=== PATIENT | female | born 1930 | race Hispanic/Latino ===

== ENCOUNTER 2017-03-07 11:20 | Observation (INO) | payer MEDICARE, OTHER ==
[2017-03-07 11:25] VITALS: BMI 27.3
--- NOTE | 2017-03-07 11:55 | ED PDOC ---
Arrival/HPI - General Historian: Patient, Family <Buddy Lombardi - Last Filed: 03/07/17 16:35> <Mine Muñoz - Last Filed: 03/07/17 16:53> - General Chief Complaint: Syncope Time Seen by Provider: 03/07/17 11:22 - History of Present Illness Narrative History of Present Illness (Text): 03/07/17 11:51 This is an 86 yo F with PMH of CAD with stents, HTN and HLD that presents to the ED s/p syncopal event while sitting down. Per pt she woke up feeling slightly confused and thought that is was the incorrect day of the week. Then while in [place] she started to feel funny, sat down and her vision went dark. Per family they noticed that she was looking unsteady on her feet and after she sat down leaned forward and became unresponsive. After less than a minute the pt began to become more responsive. The pt not reports being back to her baseline. She has no complaints. She denies any recent fevers, chills, chest pain, sob, nausea, vomiting, urinary complaints, VILLALOBOS or vision changes. She also reports adequate PO intake. PMD: [place] (Buddy Lombardi) Past Medical History - Provider Review Nursing Documentation Reviewed: Yes - Cardiac Hx Cardiac Disorders: Yes Hx Hypertension: Yes - Pulmonary Hx Respiratory Disorders: No - Neurological Hx Neurological Disorder: No - HEENT Hx HEENT Disorder: No - Renal Hx Renal Disorder: No - Endocrine/Metabolic Hx Endocrine Disorders: No - Hematological/Oncological Hx Blood Disorders: No - Integumentary Hx Dermatological Disorder: No - Musculoskeletal/Rheumatological Hx Musculoskeletal Disorders: No - Gastrointestinal Hx Gastrointestinal Disorders: No - Genitourinary/Gynecological Hx Genitourinary Disorders: No - Psychiatric Hx Psychophysiologic Disorder: No Hx Substance Use: No - Surgical History Hx Cardiac Catheterization: Yes Hx Coronary Stent: Yes <Buddy Lombardi - Last Filed: 03/07/17 16:35> Family/Social History - Physician Review Nursing Documentation Reviewed: Yes Family/Social History: Hypertension Smoking Status: Unknown If Ever Smoked Hx Alcohol Use: No Hx Substance Use: No <Buddy Lombardi - Last Filed: 03/07/17 16:35> Allergies/Home Meds <Buddy Lombardi - Last Filed: 03/07/17 16:35> <Mine Muñoz - Last Filed: 03/07/17 16:53> Allergies/Adverse Reactions: Allergies No Known Allergies Allergy (Verified 03/07/17 11:30) Home Medications: Home Meds Medication Instructions Recorded Confirmed Aspirin [Adult Low Dose Aspirin EC] 81 mg PO DAILY 03/07/17 03/07/17 Atorvastatin [Lipitor] 20 mg PO DAILY 03/07/17 03/07/17 Nitroglycerin [Nitroglycerin 0.4 mg TD DAILY 03/07/17 03/07/17 Transdermal System] amLODIPine [Norvasc] 10 mg PO DAILY 03/07/17 03/07/17 Review of Systems - Review of Systems Constitutional: absent: Fevers, Night Sweats Eyes: absent: Vision Changes Respiratory: absent: SOB, Cough Cardiovascular: absent: Chest Pain, Palpitations Gastrointestinal: absent: Abdominal Pain, Nausea, Vomiting Musculoskeletal: absent: Arthralgias Neurological: absent: Headache, Dizziness <Buddy Lombardi - Last Filed: 03/07/17 16:35> - Physician Review All systems were reviewed & negative as marked: Yes <WandaMine - Last Filed: 03/07/17 16:53> Physical Exam Vital Signs Reviewed: Yes Temperature: Afebrile Blood Pressure: Normal Pulse: Regular Respiratory Rate: Normal Appearance: Positive for: Well-Appearing, Non-Toxic, Comfortable Pain Distress: None Mental Status: Positive for: Alert and Oriented X 3. No: Confused Finger Stick Blood Glucose: 85 - Systems Exam Head: Present: Atraumatic, Normocephalic Pupils: Present: PERRL Extroacular Muscles: Present: EOMI Mouth: Present: Moist Mucous Membranes Respiratory/Chest: Present: Clear to Auscultation, Good Air Exchange. No: Respiratory Distress Cardiovascular: Present: Regular Rate and Rhythm, Normal S1, S2. No: Murmurs Abdomen: Present: Normal Bowel Sounds. No: Tenderness, Distention Upper Extremity: Present: NORMAL PULSES, Neurovascularly Intact Lower Extremity: Present: NORMAL PULSES, Swelling (1+ pitting edema), Neurovascularly Intact Neurological: Present: Speech Normal, Motor Func Grossly Intact Skin: Present: Warm, Dry Psychiatric: Present: Alert, Oriented x 3 <Buddy Lombardi - Last Filed: 03/07/17 16:35> Medical Decision Making <Buddy Lombardi - Last Filed: 03/07/17 16:35> <Mine Muñoz - Last Filed: 03/07/17 16:53> ED Course and Treatment: 03/07/17 11:58 This is an 86 yo F with hx of CAD/stents, HTN and HLD with reported/witnessed syncopal event Plan: Labs CXR EKG UA Head CT reassess and dispo 03/07/17 12:04 EKG - NSR at 67, left axis deviation, no significant changes from previous EKG in Jul 2016 03/07/17 12:52 CXR as read by ER physician - no obvious infiltrates or pleural effusions noted. 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 Splaying of cavernous sinus structures. No intracranial hemorrhage. 03/07/17 12:54 D-dimer positive - will order b/l LE dopplers and lung V/Q scan due to pts elevated Cr 03/07/17 14:23 B/L LE doppler negatvie for DVT (Buddy Lombardi) Patient Seen With Resident: In agreement with resident note which contains more details about the patient. Patient was seen and evaluated with resident. Came up with plan and treatment together. NM Lung Perfusion and Ventilation Scan FINDINGS: Ventilation: Heterogeneous. Matched defects are mismatched ventilation defects with central deposition Perfusion: Heterogeneous. Metastases defects Other findings: Elevated right hemidiaphragm. Cardiomegaly. IMPRESSION: Low probability for pulmonary embolism This case was reviewed with a followship trained nuclear medicine radiologist Dictated and Authenticated by: Chely Gillespie MD 03/07/2017 3:54 PM Eastern Time ([place] & [place]) 03/07/17 16:51 Patient with noted history of syncope. EKG is unchanged. Vitals are unremarkable. Labs with mild renal insufficiency. Urine is pending. D-dimer was elevated. LE dopplers were negative and v/q was low prob. Brain CT showing suprasellar abnormality - will need observation on tele and neuro and cardio consult. Discussed with Dr. Byers. (Mine Muñoz) - Lab Interpretations Lab Results: 03/07/17 12:00 03/07/17 12:00 Lab Results 03/07/17 12:20: D-Dimer, Quantitative 1.67 H 03/07/17 12:15: NT-Pro-B Natriuret Pep 300 03/07/17 12:00: TSH 3rd Generation 2.13 03/07/17 12:00: PT 12.7 H, INR 1.18 H, APTT 25.0 03/07/17 12:00: Sodium 137, Potassium 4.9, Chloride 103, Carbon Dioxide 30, Anion Gap 9 L, BUN 21, Creatinine 1.2, Est GFR ( Amer) 52, Est GFR (Non- Af Amer) 43, Random Glucose 85, Calcium 9.2, Total Bilirubin 1.1, AST 24, ALT 26 , Alkaline Phosphatase 75, Lactate Dehydrogenase 500, Total Creatine Kinase 119 , Troponin I < 0.01, Total Protein 7.8, Albumin 3.9, Globulin 3.9, Albumin/ Globulin Ratio 1.0 L, Lipase 19 L 03/07/17 12:00: WBC 9.2 D, RBC 4.25, Hgb 11.9 L, Hct 37.1, MCV 87.3, MCH 28.0, MCHC 32.1, RDW 14.9 H, Plt Count 214, MPV 10.7, Gran % 79.0 H, Lymph % (Auto) 11.5 L, Upson % (Auto) 9.2 H, Eos % (Auto) 0.2 L, Baso % (Auto) 0.1, Gran # 7.29 H, Lymph # 1.1 L, Upson # 0.9 H, Eos # 0.0, Baso # 0.01 - RAD Interpretation Radiology Orders: 03/07/17 11:41 HEAD W/O CONTRAST [CT] Stat CHEST ONE VIEW [RAD] Stat 03/07/17 12:46 LUNG PERF & VENT SCAN [NM] Stat DUPLEX LOWER EXTRM VEIN BILAT [US] Stat - Medication Orders Current Medication Orders: Amlodipine Besylate (Norvasc) 10 mg PO DAILY BO Aspirin (Aspirin Chewable) 81 mg PO DAILY BO Atorvastatin Calcium (Lipitor) 20 mg PO DAILY BO Nitroglycerin (Nitro-Dur 0.4 Mg/Hr Patch) 1 patch TD DAILY BO Discontinued Medications Sodium Chloride (Sodium Chloride 0.9%) 500 mls @ 250 mls/hr IV .Q2H STA Stop: 03/07/17 14:30 Last Admin: 03/07/17 13:15 Dose: 250 mls/hr Disposition/Present on Arrival - Present on Arrival Any Indicators Present on Arrival: No History of DVT/PE: No History of Uncontrolled Diabetes: No Urinary Catheter: No History of Decub. Ulcer: No History Surgical Site Infection Following: None - Disposition Have Diagnosis and Disposition been Completed?: Yes Disposition Time: 16:35 Patient Plan: Admission, Telemetry <Buddy Lombardi - Last Filed: 03/07/17 16:35> - Present on Arrival Any Indicators Present on Arrival: No - Disposition Have Diagnosis and Disposition been Completed?: Yes Disposition Time: 15:27 <Mine Muñoz - Last Filed: 03/07/17 16:53> - Disposition Diagnosis: Syncope Disposition: HOSPITALIZED Patient Problems: Current Active Problems Problem Status Onset Syncope Acute Condition: STABLE
[2017-03-07 12:03] LABS: ADD MANUAL DIFF? NO
[2017-03-07 12:12] LABS: BASO # 0.01 K/mm3 (0.0-2.0); BASO % 0.1 % (0.0-3.0); EOS % 0.2 % (1.5-5.0); GRAN # 7.29 (1.4-6.5); HEMATOCRIT 37.1 % (36.0-48.0); LYMPH # 1.1 (1.2-3.4); LYMPH % 11.5 % (22.0-35.0); MEAN CELL VOLUME 87.3 fL (80.0-105.0); MEAN CORPUSCULAR HGB CONC 32.1 g/dl (31.0-37.0); MEAN PLATELET VOLUME 10.7 fl (7.0-11.0); MONO # 0.9 (0.1-0.6); MONO % 9.2 % (1.0-6.0); PLATELET COUNT 214 10^3/uL (120.0-450.0); RED CELL DISTRIBUTION WIDTH 14.9 % (11.5-14.5); WHITE BLOOD COUNT 9.2 10^3/ul (4.5-11.0)
[2017-03-07 12:16] LABS: ALKALINE PHOSPHATASE 75 U/L (38-133); ALT/SGPT 26 U/L (7-56); AST/SGOT 24 U/L (15-39); BILIRUBIN,TOTAL 1.1 mg/dL (0.2-1.3); BLOOD UREA NITROGEN 21 mg/dL (7-21); CALCIUM 9.2 mg/dL (8.4-10.5); CARBON DIOXIDE 30 mmol/L (21-33); CHLORIDE 103 mmol/L (98-107); GFR AFRICAN-AMERICAN 52; GLUCOSE,RANDOM 85 mg/dL (70-110); LIPASE 19 U/L (23-300); POTASSIUM 4.9 mmol/L (3.6-5.0); SODIUM 137 mmol/L (132-148); TOTAL PROTEIN 7.8 g/dL (5.8-8.3)
[2017-03-07 12:23] LABS: INR 1.18 (0.93-1.08)
[2017-03-07] MEDS ORDERED: Sodium Chloride 0.9% 500 ML IV STA (12:31)
--- NOTE | 2017-03-07 12:44 | CT ---
PROCEDURE: CT HEAD WITHOUT CONTRAST. HISTORY: syncope COMPARISON: None available. TECHNIQUE: Axial computed tomography images were obtained through the head/brain without intravenous contrast. Radiation dose: Total exam DLP = 822 mGy-cm. This CT exam was performed using one or more of the following dose reduction techniques: Automated exposure control, adjustment of the mA and/or kV according to patient size, and/or use of iterative reconstruction technique. FINDINGS: HEMORRHAGE: No intracranial hemorrhage. BRAIN: Large 3.0 centimeter suprasellar mass possibly representing a macroadenoma or aneurysm. Splaying of cavernous sinus structures. Mild atrophy. VENTRICLES: Unremarkable. No hydrocephalus. CALVARIUM: Unremarkable. PARANASAL SINUSES: Unremarkable as visualized. No significant inflammatory changes. MASTOID AIR CELLS: Unremarkable as visualized. No inflammatory changes. OTHER FINDINGS: None. 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 Splaying of cavernous sinus structures. No intracranial hemorrhage.
[2017-03-07 12:57] LABS: TROPONIN I < 0.01 ng/mL
--- NOTE | 2017-03-07 15:13 | RAD ---
PROCEDURE: CHEST RADIOGRAPH, 1 VIEW HISTORY: nausea and vomiting COMPARISON: None available. FINDINGS: LUNGS: Clear. PLEURA: No pneumothorax or pleural fluid seen. CARDIOVASCULAR: Normal. OSSEOUS STRUCTURES: No significant abnormalities. VISUALIZED UPPER ABDOMEN: Normal. OTHER FINDINGS: Elevated right hemidiaphragm. IMPRESSION: No active disease.
--- NOTE | 2017-03-07 15:16 | US ---
HISTORY: Leg pain and swelling. Evaluate for DVT PHYSICIAN(S): Lyndon Basilio MD. TECHNIQUE: Duplex sonography and color-flow Doppler with graded compression were used to evaluate the deep venous systems of both lower extremities. FINDINGS: The visualized deep venous systems of both lower extremities are sonographically normal and compressible. Normal wave forms and augmentation are seen. There is no sonographic evidence for deep venous thrombosis in the visualized segments of both lower extremities. There is a complex 2.0 x 3.9 cm fluid collection in the right popliteal fossa and a smaller 2.7 cm fluid collection left popliteal fossa consistent with bilateral Nguyen's cysts IMPRESSION: No sonographic evidence for deep venous thrombosis in the visualized segments of both lower extremities.
[2017-03-07 16:08] LABS: URINE BILIRUBIN NEGATIVE (NEGATIVE); URINE BLOOD NEGATIVE (NEGATIVE); URINE GLUCOSE (UA) NEGATIVE (NEGATIVE); URINE KETONE NEGATIVE (NEGATIVE); URINE LEUKOCYTE ESTERASE MODERATE Leu/uL (NEGATIVE); URINE PROTEIN NEGATIVE mg/dL (<30 mg/dL); URINE UROBILINOGEN 0.2 E.U./dL (<1 E.U./dL)
[2017-03-07 16:09] LABS: URINE APPEARANCE CLEAR (CLEAR); URINE COLOR LIGHT YELLOW (YELLOW)
[2017-03-07 17:12] LABS: URINE BACTERIA SMALL (NEG); URINE EPITHELIAL CELLS 0 - 2 /hpf (0-5); URINE RBC 0 - 2 /hpf (0-2)
--- NOTE | 2017-03-07 18:49 | CARD ---
APPROVED REPORT EKG Measurement Heart [id number] OH [id number] <Conclusion> Sinus rhythm with occasional premature ventricular complexes Possible Left atrial enlargement Left axis deviation ST & T wave abnormality, consider lateral ischemia Abnormal ECG
[2017-03-08 00:22] VITALS: O2SAT 98
[2017-03-08 07:38] LABS: HEMATOCRIT 32.8 % (36.0-48.0); MEAN CELL VOLUME 85.6 fL (80.0-105.0); MEAN CORPUSCULAR HEMOGLOBIN 27.7 pg (25.0-35.0); MEAN CORPUSCULAR HGB CONC 32.3 g/dl (31.0-37.0); MEAN PLATELET VOLUME 10.3 fl (7.0-11.0); RED CELL DISTRIBUTION WIDTH 14.9 % (11.5-14.5); WHITE BLOOD COUNT 9.8 10^3/ul (4.5-11.0)
[2017-03-08 07:51] LABS: ALKALINE PHOSPHATASE 63 U/L (38-133); ALT/SGPT 28 U/L (7-56); AST/SGOT 23 U/L (15-39); BILIRUBIN,TOTAL 0.9 mg/dL (0.2-1.3); BLOOD UREA NITROGEN 17 mg/dL (7-21); CALCIUM 8.6 mg/dL (8.4-10.5); CARBON DIOXIDE 27 mmol/L (21-33); CHLORIDE 104 mmol/L (95-110); GFR AFRICAN-AMERICAN > 60; GLUCOSE,RANDOM 77 mg/dL (70-110); POTASSIUM 4.5 mmol/L (3.6-5.0); SODIUM 137 mmol/L (132-148); TOTAL PROTEIN 6.7 g/dL (5.8-8.3)
--- NOTE | 2017-03-08 09:19 | NM ---
COMPARISON: March 07, 2017. Single-view chest. TECHNIQUE: 32.0 mCi technetium 99-m DTPA aerosol. 5.7 mCI technetium 99-m MAA administered intravenously. FINDINGS: VENTILATION COMPONENT: Normal ventilation. Elevated right hemidiaphragm consistent with chest radiograph findings. Retention of radionuclide in the central tracheobronchial tree consistent with lower airway disease. PERFUSION COMPONENT: Heterogeneous distribution of radionuclide. No geographic, segmental, lobar abnormalities apparent on the present examination. Focal area of diminished perfusion in the posterior segment left upper lobe. IMPRESSION: Low probability ventilation perfusion scan for pulmonary embolism. Concordant results (preliminary interpretation) provided by [facility]. Procedure Completed: 14:48 Preliminary ([facility]) Report: Dictated and Authenticated: 15:54 Final Interpretation: 09:18. March 08, 2017.
[2017-03-08] MEDS: Nitroglycerin 0.4 mg/hr Top Patch TD SCH (10:04)
--- NOTE | 2017-03-08 11:05 | HP ---
She was sent in to the hospital because she was sort of lightheaded and had sort of a near syncopal episode. While at [employer], she felt funny, sat down, vision went dark, also a little bit unsteady. Now she is doing a little better. PAST MEDICAL HISTORY: CAD with stents, hypertension, high cholesterol. FAMILY HISTORY: There is hypertension in the family. SOCIAL HISTORY: Not a smoker, not an alcohol drinker. No drugs. ALLERGIES: No known drug allergies. MEDICATIONS: She is on aspirin, Lipitor, nitroglycerin, and Norvasc. REVIEW OF SYSTEMS: No acute fevers or night sweats. No acute vision changes. No acute hearing changes. No shortness of breath or cough. No chest pains or palpitations. No abdominal pain, nausea or vomiting. No arthralgias. No headache. Was a little bit dizzy. She was kind of out of it. She kind of felt wobbly in the brain, and she was going to fall down - almost like a fall down, but not. PHYSICAL EXAMINATION: VITAL SIGNS: She has a 99.8 temp, 67 pulse, 122/53 blood pressure, 98% O2 sat on room air - that is when she came in. Now it is 98.4 temp, 68 pulse, 133/79 blood pressure, 20 respiratory rate, and 98% O2 sat. So she is doing better. GENERAL: I see her in bed with a family member there. She is alert. She wants to go home. She said she is back to normal, and she is hungry. HEENT: Head is atraumatic, normocephalic. Extraocular muscles are intact. Pupils are equal, reactive to light. Mucous membranes are moist. NECK: Supple. No JVD. HEART: Regular rate. Normal S1 and S2. LUNGS: Decreased breath sounds, but clear to auscultation. ABDOMEN: Soft, nontender, positive bowel sounds. No guarding, no rebound, no CVA tenderness. EXTREMITIES: Have no edema. Although they said there was some swelling when she came to the Emergency Room, I do not see it now. NEUROLOGIC: Speech is normal. She feels back to normal. No lightheadedness. She did walk in the room. She is alert and oriented x 3. LABORATORY DATA: So there were a lot of tests performed on her. She had a blood test, which shows urine, which is moderate leukocytes, small bacteria, 9.8 white count, 10.6 hemoglobin, 32.hematocrit with 199 platelets. INR is 1.18. D-dimer is 1.67. Sodium 137, potassium 4.5, BUN 17, creatinine 1. GFR is greater than 60. Sugar is 77. Calcium is 8.6. Total bili is 0.9. AST is 23. ALT is 28, alk phos 63, total protein 6.7. TSH is 2.13. There are consults for cardio and neurology that did not see her yet. I also called in a consult with neurosurgeon. First the chest x-ray showed no active disease. There is a VQ scan pending because of the elevated D-dimer - waiting for that. The CAT scan of the head showed something interesting. Large 3-cm suprasellar mass, possibly representing a macroadenoma or aneurysm, splitting of the cavernous sinus structures, no intracranial hemorrhage. I called the neurosurgeon to get his opinion. We will see what the neurologist has to say, and the maintenance and engineering manager. The patient wants to go home. surgical to get her discharged today. I will discuss that with the family at length. She is here for near syncope and now with a brain mass. Richard Byers DO cc: [id number] TT: 03/08/2017 11:04:57 jn MTDD
--- NOTE | 2017-03-08 12:03 | MRI ---
PROCEDURE: MRI BRAIN WITHOUT CONTRAST HISTORY: Brain mass COMPARISON: Noncontrast head CT from 03/07/2017 TECHNIQUE: Multiplanar, multisequence MR images of the brain were obtained without intravenous contrast enhancement. FINDINGS: HEMORRHAGE: None DWI: No evidence of an acute or early subacute infarction. BRAIN PARENCHYMA: There is redemonstration of a T1 hypointense and T2/FLAIR hyperintense 2.7 x 2.1 x 2.7 cm (craniocaudad by anteroposterior by transverse) sellar mass with suprasellar extension. The mass demonstrates restricted diffusion There is probable invasion of the left cavernous sinus. There are mild chronic microangiopathic changes. There is no extra-axial fluid collection VENTRICLES: There is mild age-related global parenchymal volume loss and proportionate enlargement of the ventricles and cortical sulci. CRANIUM: There is normal bone marrow signal pattern. ORBITS: Grossly unremarkable. PARANASAL SINUSES/MASTOIDS: Predominantly clear. VASCULAR SYSTEM: There are normal signal voids in the larger intracranial arteries. OTHER FINDINGS: None. IMPRESSION: 1. Large sellar mass with suprasellar extension and probable invasion of the left cavernous sinus. 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 No evidence of hemorrhage. A dedicated MRI of the brain without and with intravenous contrast with pituitary protocol would be helpful to evaluate invasion of the cavernous sinuses. 2. Mild chronic microangiopathic changes and mild age-related global parenchymal volume loss.
--- NOTE | 2017-03-08 15:29 | CON ---
DATE: 03/08/2017 This is an 86-year-old black female with a past medical history of hypertension, coronary artery dise ase, status post stents and came here. The patient was in the latter day and sitting [facility]. The patient passed out, had a syncopal episode and when she woke up, was slightly confused and di d not know the accurate day of the week and brought her to the hospital. [facility] in the suprasellar and called to evaluate the patient. PAST MEDICAL HISTORY: As above. ALLERGIES: No known drug allergy. HOME MEDICATIONS: Lipitor, Norvasc and aspirin. REVIEW OF SYSTEMS: A 10-point was negative except headache. Called to evaluate the patient. PHYSICAL EXAMINATION: HEENT: Normocephalic, atraumatic. NECK: Supple. NEUROLOGIC: Awake, oriented to self. Cranial nerves II-XII were tested. Pupils reactive. Spontane ous movement of the extremities noted. Deep tendon reflexes 1+. Both plantars are downgoing. Senso ry appears intact. Cerebellar, gait deferred. IMPRESSION: An 86-year-old black female with hypertension, coronary artery disease, had a witnessed syncopal episode. No tongue bite, no urinary incontinence. 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 Workup is in progress. MRI showed the same thing. Called neurosurgeon to further evaluate the patient. Ashwin France MD cc: [id number] TT: 03/08/2017 15:28:53 Confirmation # [id number] Dictation # [id number]
--- NOTE | 2017-03-08 16:02 | CON ---
DATE: 03/08/2017 HISTORY OF PRESENT ILLNESS: The patient is an 86-year-old woman who presents with a syncopal episode . MRI reveals a brain mass which is now being evaluated by neurology and neurosurgery. PAST MEDICAL HISTORY: Notable for hypertension and hypercholesterolemia. She had PTCA and stent of a coronary artery several years ago. She denies chest pain, denies shortness of breath. SOCIAL HISTORY: Does not smoke. REVIEW OF SYSTEMS: A 14-point review of systems is free of cardiac symptomatology. PHYSICAL EXAMINATION: VITAL SIGNS: Blood pressure is 130/60, heart rate is in the 60s. NECK: Negative JVD. LUNGS: Without rales. HEART: Reveals S1, S2. EXTREMITIES: Without edema. LABORATORIES: Reveals normal sinus rhythm with diffuse ST-T changes. Hemoglobin is 10.6. Chemistri es: Troponin is negative x 1. BUN and creatinine are unremarkable. IMPRESSION: 1. Syncope. 2. Brain mass. 3. Stable angina. 4. Hypertension. 5. Hypercholesterolemia. PLAN: Given these findings, we will obtain an echocardiogram to evaluate LV function for the possibl e potential invasive procedure in the near future. Lyndon Robledo MD cc: [id number] TT: 03/08/2017 16:02:28 Confirmation # [id number] Dictation # [id number]
[2017-03-09 06:24] VITALS: PULSE 54
[2017-03-09 06:27] VITALS: BP 114/66; RESP 18; TEMP 98.3
[2017-03-09] MEDS: Nitroglycerin 0.4 mg/hr Top Patch TD SCH ×2 (09:40→09:43)
--- NOTE | 2017-03-09 10:13 | DS ---
I see her resting comfortably in bed. She is alert. She is eating. She is walking. She is with he r daughter. They want to go home. A couple of issues left. Waiting for the plan from neurosurgeon. She does have a brain mass. I am not sure what the plan is going to be, if there is surgery or jus t watch her further in the future. She is comfortable. No headache, no blurred vision, no more dizz iness. She is on aspirin, Lipitor, nitroglycerin, and Norvasc PHYSICAL EXAMINATION: VITAL SIGNS: 98.3 temp, 54 pulse, 114/66 blood pressure, 18 respiratory rate, 98% O2 sat on room air . HEENT: Head is atraumatic, normocephalic. Throat is moist. NECK: Supple. HEART: Regular rate. LUNGS: Clear to auscultation. ABDOMEN: Soft. EXTREMITIES: No edema. She is ambulating well. LABORATORY DATA: She has a 9.8 white count, 10.6 hemoglobin, 199 platelets. She has a 137 sodium, p otassium 4.5, BUN 17, creatinine 1, GFR is 53, calcium is 8.6. Total bili is 0.9, AST is 23, ALT is 20, alk phos 63, total protein 6.7. Waiting for the note to populate from the neurosurgeon for his p joni. There are some orders pending that are labs that are not back yet - a cortisol and prolactin ar e pending. TSH is normal at 2.13. I am hoping we can discharge her later today. She will go home on the same medications that she is o n here, nothing new, which is her aspirin, Lipitor, nitroglycerin, Norvasc. She could probably follo w up on the outpatient if there is going to be a procedure done. No messages from the nurses from e surgeon. Will hurry up and wait. If everything is fine, will discharge her this afternoon. Other reynoso, will make a plan for surgery. She is here with a brain mass, a syncopal episode, hypertension, high cholesterol. Richard Byers DO cc: [id number] TT: 03/09/2017 10:12:46 mn
== END 2017-03-09 11:34 | disposition home or self-care (01) ==
LOC: ED 11:20 → ERH 15:27 → 2RSO 16:22
PROVIDERS: ADMIT Family Medicine; ATTEND Family Medicine
DX: R55 Syncope and collapse (principal); G93.9 Disorder of brain, unspecified; I25.118 Atherosclerotic heart disease of native coronary artery with other forms of angina pectoris; I10 Essential (primary) hypertension; E78.5 Hyperlipidemia, unspecified; R26.81 Unsteadiness on feet; E78.00 Pure hypercholesterolemia, unspecified; Z95.5 Presence of coronary angioplasty implant and graft; Z79.82 Long term (current) use of aspirin; Z82.49 Family history of ischemic heart disease and other diseases of the circulatory system
CPT/HCPCS: 36415; 70450; 70551; 71010; 78582; 80053; 81001; 82550; 83615; 83690; 83880; 84443; 84484; 85025; 85027; 85378; 85610; 85730; 87086; 93005; 93970; 99285; A9540; G0378; J7040

== ENCOUNTER 2018-05-27 15:19 | Inpatient (IN) | payer MEDICARE, OTHER ==
[2018-05-27 16:38] LABS: VENOUS BLOOD GAS BASE EXCESS 4.5 mmol/L (0.0-2.0); VENOUS BLOOD GAS PO2 30 mm/Hg (30-55); VENOUS BLOOD PH 7.37 (7.32-7.43)
[2018-05-27 16:38] LABS: BASO # 0.02 K/mm3 (0.0-2.0); BASO % 0.3 % (0.0-3.0); EOS # 0.1 (0.0-0.7); EOS % 1.6 % (1.5-5.0); GRAN # 4.85 (1.4-6.5); GRAN % 63.6 % (50.0-68.0); HEMOGLOBIN 11.2 g/dL (12.0-16.0); LYMPH # 1.6 (1.2-3.4); LYMPH % 21.6 % (22.0-35.0); MEAN CELL VOLUME 86.3 fl (80.0-105.0); MEAN CORPUSCULAR HEMOGLOBIN 27.3 pg (25.0-35.0); MEAN CORPUSCULAR HGB CONC 31.6 g/dl (31.0-37.0); MEAN PLATELET VOLUME 9.6 fl (7.0-11.0); MONO % 12.9 % (1.0-6.0); RBC 4.1 10^6/uL (3.5-6.1); WHITE BLOOD COUNT 7.6 10^3/ul (4.5-11.0)
[2018-05-27 16:46] LABS: ALB/GLOB RATIO 0.9 (1.1-1.8); ALBUMIN 3.9 g/dL (3.0-4.8); CALCIUM 8.9 mg/dL (8.4-10.5)
[2018-05-27 16:50] LABS: INR 1.23; PARTIAL THROMBOPLASTIN TIME 29.9 Seconds (25.1-36.5); PROTHROMBIN TIME 14.1 SECONDS (9.4-12.5)
[2018-05-27] MEDS ORDERED: Vancomycin 1gm in NS 250ml 1 GM/250 ML BAG IVPB STA (17:17)
--- NOTE | 2018-05-27 17:22 | ED PDOC ---
Arrival/HPI - General Chief Complaint: Lower Extremity Problem/Injury Time Seen by Provider: 05/27/18 15:57 Historian: Patient - History of Present Illness Narrative History of Present Illness (Text): 05/27/18 17:23 Patient is an 88 yo female who presents to the Emergency Department with pain, redness and swelling to the left leg for several weeks. Patient states that approximately three weeks ago she "banged my leg on a dresser". Patient reportedly "put a strong solution" on it to clean. She has had persistent redness and ulcer. Patient has been seeing Dr. Radhika Byers who placed her on antibiotics and Bactroban. Reportedly there was slight improvement initially although patient now has return of redness and swelling as per PMD who has been following wound. No knee pain or hip pain. Denies fevers or chills. Denies tremors or shakes. Past Medical History - Reproductive Menopause: Yes - Cardiac Hx Cardiac Disorders: Yes Hx Hypertension: Yes - Pulmonary Hx Respiratory Disorders: No - Neurological Hx Neurological Disorder: No - HEENT Hx HEENT Disorder: No - Renal Hx Renal Disorder: No - Endocrine/Metabolic Hx Endocrine Disorders: No - Hematological/Oncological Hx Blood Disorders: No - Integumentary Hx Dermatological Disorder: No - Musculoskeletal/Rheumatological Hx Falls: No - Gastrointestinal Hx Gastrointestinal Disorders: No - Genitourinary/Gynecological Hx Genitourinary Disorders: No - Psychiatric Hx Psychophysiologic Disorder: No Hx Substance Use: No - Surgical History Hx Cardiac Catheterization: Yes Hx Coronary Stent: Yes Hx Hysterectomy: Yes Family/Social History Family/Social History: Unknown Family HX Smoking Status: Never Smoked Hx Alcohol Use: No Hx Substance Use: No Allergies/Home Meds Allergies/Adverse Reactions: Allergies No Known Allergies Allergy (Verified 05/27/18 15:54) Home Medications: Home Meds Medication Instructions Recorded Confirmed Aspirin [Adult Low Dose Aspirin EC] 81 mg PO DAILY 03/07/17 05/27/18 Atorvastatin [Lipitor] 20 mg PO DAILY 03/07/17 05/27/18 Nitroglycerin [Nitroglycerin 0.4 mg TD DAILY 03/07/17 05/27/18 Transdermal System] Furosemide [Lasix] 20 mg PO DAILY 05/27/18 05/27/18 Review of Systems - Review of Systems Constitutional: absent: Fatigue, Fevers Respiratory: absent: SOB, Cough Cardiovascular: absent: Chest Pain Gastrointestinal: absent: Abdominal Pain Genitourinary Female: absent: Hematuria Musculoskeletal: absent: Neck Pain Skin: Skin Lesions, Cellulitis. absent: Rash Neurological: absent: Headache, Dizziness, Focal Weakness Endocrine: absent: Polyuria Hemo/Lymphatic: absent: Easy Bleeding Physical Exam Vital Signs Reviewed: Yes Vital Signs Temp Pulse Resp BP Pulse Ox 05/27/18 18:14 61 18 119/62 100 05/27/18 15:56 98.2 F 71 18 104/70 100 Temperature: Afebrile Appearance: Positive for: Non-Toxic Pain Distress: Mild Mental Status: Positive for: Alert and Oriented X 3 - Systems Exam Head: Present: Atraumatic Pupils: Present: PERRL Mouth: Present: Moist Mucous Membranes Pharnyx: No: ERYTHEMA Nose (Internal): Present: Normal Inspection Neck: Present: Normal Range of Motion. No: Meningeal Signs Respiratory/Chest: Present: Clear to Auscultation. No: Respiratory Distress Cardiovascular: Present: Regular Rate and Rhythm, Murmurs Abdomen: No: Tenderness Back: No: CVA Tenderness Upper Extremity: No: Cyanosis, Edema Lower Extremity: Present: Edema, NORMAL PULSES, Tenderness, Swelling, Erythema. No: CALF TENDERNESS Neurological: Present: Motor Func Grossly Intact, Normal Sensory Function Skin: Present: Warm, Erythematous Psychiatric: Present: Alert Medical Decision Making ED Course and Treatment: 05/27/18 17:29 Patient with erythema noted to left lower extremity at tib fib region with ulceration, currently no pus or bleeding or fluctuance. No streaking. NV intact. No knee or ankle or hip pain. Afebrile. Denies fevers or chills. Patient has been on outpatient antibiotics with recent worsening of redness as per PMD. Ultrasound negative for DVT. No foreign body palpated. Labs reviewed. IV antibiotics ordered. Case discussed with PMD Dr. Radhika Byers will admit and consult ID and podiatry for failure of outpatient treatment of cellulitis. Distal pulses strong. Xrays unremarkable for any fracture or radioopaque foreign body. 05/27/18 18:43 - Lab Interpretations Lab Results: 05/27/18 16:32 05/27/18 16:32 Lab Results 05/27/18 16:32: Sodium 141, Chloride 103, Potassium 4.7, Carbon Dioxide 28, Anion Gap 14, BUN 21, Creatinine 1.2, Est GFR ( Amer) 52, Est GFR (Non- Af Amer) 43, Random Glucose 94, Calcium 8.9, Total Bilirubin 0.4, AST 25, ALT 16 , Alkaline Phosphatase 96, Total Protein 8.0, Albumin 3.9, Globulin 4.1, Albumin /Globulin Ratio 0.9 L 05/27/18 16:32: PT 14.1 H, INR 1.23, APTT 29.9 05/27/18 16:32: WBC 7.6 D, RBC 4.10, Hgb 11.2 L, Hct 35.4 L, MCV 86.3, MCH 27.3 , MCHC 31.6, RDW 15.0 H, Plt Count 284, MPV 9.6, Gran % 63.6, Lymph % (Auto) 21.6 L, Summers % (Auto) 12.9 H, Eos % (Auto) 1.6, Baso % (Auto) 0.3, Gran # 4.85, Lymph # (Auto) 1.6, Summers # (Auto) 1.0 H, Eos # (Auto) 0.1, Baso # (Auto) 0.02 05/27/18 16:30: pO2 30, VBG pH 7.37, VBG pCO2 54.0, VBG HCO3 31.2 H, VBG Total CO2 32.9 H, VBG O2 Sat (Calc) 50.9, VBG Base Excess 4.5 H, VBG Potassium 4.8, Sodium 141.0, Chloride 107.0, Glucose 92, Lactate 0.9, FiO2 21.0, Venous Blood Potassium 4.8 - RAD Interpretation Radiology Orders: 05/27/18 16:07 DUPLEX LOWER EXTRM VEIN LEFT [US] Stat 05/27/18 16:20 TIBIA FIBULA LEFT [RAD] Stat Professor Of Art History: Radiologist - EKG Interpretation Interpreted by ED Physician: Yes Type: 12 lead EKG - Medication Orders Current Medication Orders: Vancomycin HCl (Vancomycin 1gm) 1 gm in 250 mls @ 167 mls/hr IVPB STAT STA PRN Reason: Protocol Stop: 05/27/18 18:46 Last Admin: 05/27/18 17:59 Dose: 167 mls/hr eMAR Start Stop Document 05/27/18 17:59 GMD (Rec: 05/27/18 17:59 GMD [id number]) Intravenous Solution Start Date 05/27/18 Start Time 17:59 End Date 05/27/18 End time 19:29 Total Infusion Time 90 Disposition/Present on Arrival - Present on Arrival Any Indicators Present on Arrival: No History of DVT/PE: No History of Uncontrolled Diabetes: No Urinary Catheter: No History of Decub. Ulcer: No History Surgical Site Infection Following: None - Disposition Have Diagnosis and Disposition been Completed?: Yes Diagnosis: Cellulitis Disposition: HOSPITALIZED Disposition Time: 17:15 Patient Plan: Admission Patient Problems: Current Active Problems Problem Status Onset Cellulitis Acute Condition: FAIR
--- NOTE | 2018-05-27 17:31 | CARD ---
APPROVED REPORT Date of service: 05/27/2018 EKG Measurement Heart [id number] <Conclusion> Normal sinus rhythm with sinus arrhythmia Possible Left atrial enlargement Anterior infarct, age undetermined T wave abnormality, consider inferior ischemia Abnormal ECG
--- NOTE | 2018-05-27 20:40 | US ---
PROCEDURE: Left lower extremity venous US HISTORY: Leg pain and swelling. Evaluate for DVT. PHYSICIAN(S): Lyndon Basilio MD. TECHNIQUE: Duplex sonography and color-flow Doppler with graded compression were used to evaluate the deep venous system of the left lower extremity. FINDINGS: The visualized deep venous system of the left lower extremity is sonographically normal and compressible. Normal wave forms and augmentation are seen. There is no sonographic evidence for deep venous thrombosis in the visualized segments of the left lower extremity. There is a complex 2.8 cm fluid collection in the left popliteal fossa, consistent with a Nguyen's cyst IMPRESSION: 1. No sonographic evidence for deep venous thrombosis in the visualized segments of the left lower extremity.
[2018-05-27 21:54] VITALS: BMI 25.7
[2018-05-27] MEDS ORDERED: Pneumococcal 23-Valent Vaccine IM ONE (21:54)
[2018-05-27] MEDS ORDERED: Piperacillin/Tazobact 3.375 gm Inj IVPB SCH (22:00)
[2018-05-27] MEDS: Piperacillin/Tazobact 2.25gm 2.25 GM/100 ML BAG IVPB SCH (22:21)
[2018-05-28 03:37] LABS: PH,URINE 6.5 (4.7-8.0); URINE BILIRUBIN NEGATIVE (NEGATIVE); URINE BLOOD NEGATIVE (NEGATIVE); URINE GLUCOSE (UA) NEGATIVE (NEGATIVE); URINE LEUKOCYTE ESTERASE LARGE Leu/uL (NEGATIVE); URINE PROTEIN NEGATIVE mg/dL (<30 mg/dL)
[2018-05-28 03:48] LABS: URINE APPEARANCE CLEAR (CLEAR); URINE COLOR LIGHT YELLOW (YELLOW)
[2018-05-28 03:49] LABS: URINE BACTERIA SMALL (NEG); URINE WBC 25 - 30 /hpf (0-6)
[2018-05-28] MEDS: Piperacillin/Tazobact 2.25gm 2.25 GM/100 ML BAG IVPB SCH (05:48)
[2018-05-28 06:52] LABS: ALB/GLOB RATIO 0.9 (1.1-1.8); CALCIUM 8.2 mg/dL (8.4-10.5)
[2018-05-28 06:57] LABS: EOS % 0.1 % (1.5-5.0); GRAN # 11.75 (1.4-6.5); GRAN % 94.2 % (50.0-68.0); HEMOGLOBIN 10.3 g/dL (12.0-16.0); LYMPH # 0.1 (1.2-3.4); MEAN CORPUSCULAR HEMOGLOBIN 27.1 pg (25.0-35.0); MEAN CORPUSCULAR HGB CONC 31.9 g/dl (31.0-37.0); MONO # 0.6 (0.1-0.6); MONO % 4.7 % (1.0-6.0); PLATELET COUNT 240 10^3/uL (120.0-450.0); RED CELL DISTRIBUTION WIDTH 15.1 % (11.5-14.5); WHITE BLOOD COUNT 12.5 10^3/ul (4.5-11.0)
[2018-05-28 09:31] LABS: LYMPHOCYTE 4 % (22.0-35.0); MONOCYTE 1 % (1.0-6.0); NEUTROPHIL 95 % (50.0-70.0)
[2018-05-28] MEDS: Nitroglycerin 0.4 mg/hr Top Patch TD SCH (09:34)
[2018-05-28] MEDS: Linezolid 600 mg in D5W 300 ml 600 MG/300 ML BAG IVPB SCH ×2 (09:38→21:09)
--- NOTE | 2018-05-28 10:45 | RAD ---
Date of service: 05/27/2018 PROCEDURE: Radiographs of the left tibia and fibula. HISTORY: r/o osteo COMPARISON: None available. TECHNIQUE: Frontal and lateral views obtained. FINDINGS: BONES: There is diffuse bone demineralization. There is an apparent radiolucent lesion in the medial subarticular distal tibia. JOINT SPACES: The joint spaces are preserved. OTHER FINDINGS: There is mild subcutaneous edema and atherosclerotic vascular calcifications. There is also periarticular soft tissue swelling. IMPRESSION: Apparent radiolucent lesion in the medial subarticular distal tibia could represent osteomyelitis in the appropriate clinical setting. If clinically indicated, correlation with MRI may be performed for definitive evaluation.
[2018-05-28] MEDS: Meropenem IV 1 gm in NS 50 ML IVPB SCH ×3 (11:38→21:08)
--- NOTE | 2018-05-28 13:07 | CON ---
Copied To: Norm Allen DPM Attending MD: Norm Allen DPM DATE: 05/28/2018 HISTORY OF PRESENT ILLNESS: An 88-year-old female seen at bedside with her daughter present for consultation, evaluation and management of a wound to her left leg for several weeks with recent accompanying cellulitis. The patient states that she injured her leg by banging it on a dresser approximately 4 weeks ago and was self treating it, but was not getting better, so she went to her primary care doctor, who placed her on oral and topical antibiotics, but there was a little improvement over the course of the last weeks, so she presented to the emergency room for treatment. The patient states she is feeling much better since admission and her leg pain has decreased significantly. PAST MEDICAL HISTORY: The patient's medical history is significant for CAD, hypertension, peripheral vascular disease and dyslipidemia. ALLERGIES: THE PATIENT HAS NO KNOWN DRUG ALLERGIES. MEDICATIONS: All medications are noted in MAR. SOCIAL HISTORY: The patient never smoked cigarettes or used tobacco products. Does not drink alcohol and denies any illicit drug use. PAST SURGICAL HISTORY: Includes hysterectomy, coronary catheterizations with stenting. FAMILY HISTORY: Unremarkable. VITAL SIGNS: Revealed temperature of 102.4, pulse rate of 75, blood pressure of 140/74, respiratory rate of 20. LABORATORY DATA: Laboratory findings reveal white count of 12.5, up from 7.6 yesterday. Hemoglobin of 10.3, hematocrit of 32.3, platelet count of 240. OBJECTIVE: Nonpalpable pedal pulses noted bilaterally. Capillary filling time is slightly delayed x10. The patient is able to detect 5.07 g monofilament wire testing bilaterally. There is noted to be +1 nonpitting lower extremity edema. There are no interdigital macerations. There is a superficial wound on her anterior left lower leg and base of the ulcer, presents with an eschar. There is no drainage. There is no malodor. There is no pain upon palpation. However, the localized area surrounding the periphery of the wound is slightly edematous and erythematous. There are no signs of underlying abscess formation. There is no pain upon palpation at the gastroc soleus complex. Venous duplex taken of the left lower extremity reveals no radiographic evidence of deep vein thrombosis. X-rays taken of the left leg reveal no radiographic changes consistent with osseous cortical destruction and no evidence of osteomyelitis. ASSESSMENT: Traumatic left lower leg ulceration with localized cellulitis. PLAN: The patient was examined. Wound was cleansed with normal sterile saline. We will apply Bactroban, Xeroform and a dry sterile dressing. Given the patient has nonpalpable pedal pulses, we will obtain arterial Dopplers to ascertain lower extremity perfusion. I do not believe that she has an underlying abscess in her leg and I do not feel that the etiology of her recent white blood cell count increase is related to her lower leg. Spoke with Dr. Connors regarding case. The patient will be seen and followed daily. We will await arterial Doppler results to determine if vascular consult is needed, vascular evaluation is warranted. Norm Allen DPM JOANNE
--- NOTE | 2018-05-28 19:40 | HP ---
Copied To: Richard Byers DO Attending MD: Richard Byers DO DATE OF EXAM: 05/28/2018 HISTORY OF PRESENT ILLNESS: I have known Estella for many, many years. She has been in my office for the past 2-3 weeks. I have been treating her left leg cellulitis with an ulcer with antibiotics. I am on a second antibiotic. I had her on Lasix p.o. and I thought it was getting better, then she came back 2 weeks later and it got worse to the point where she needs to be in the hospital at this time. I am quite concerned about that left leg. She has got an ulcer which is looking worse and more redness. I saw a demarcation line and I brought her to the emergency room with failed outpatient treatment. She was started with banging her leg on a dresser and she cleaned it with some strong cleaning solution she had at home and she did not want to come to the hospital. I asked her numerous times and finally with the family there, we forced her to come to the hospital. She has hypertension, coronary stents. She had a hysterectomy. FAMILY HISTORY: Unknown family history but there is hypertension. SOCIAL HISTORY: Never smoked. No alcohol. No drugs. ALLERGIES: NO KNOWN DRUG ALLERGIES. MEDICATIONS: She is on aspirin; nitroglycerin; transdermal system Lasix, I bumped her up to 40 mg. She is on amoxicillin. She is on Keflex. She is on Duricef REVIEW OF SYSTEMS: Left leg was red and swollen with an ulcer. No fatigue. There were fevers at home, 100 degrees in my office. No shortness of breath. No cough. No chest pain or palpitations. No abdominal pain, nausea, vomiting, constipation or diarrhea. No problems urinating. No neck pain. She has a skin lesion in the left leg for which she banged it against the furniture; cellulitis, rash and ulcer. No headache. No dizziness, no focal weakness. No polyuria. No easy bleeding. The left leg got worse over the past 2-3 weeks. PHYSICAL EXAMINATION: VITAL SIGNS: She has a 98.2 temp, it was 99 plus in my office; 71 pulse; 18 respiratory rate; 104/70 blood pressure; 100% O2 sat on room air. GENERAL: She is upset, nontoxic, alert and oriented x3, mild distress. HEENT: Head is atraumatic, normocephalic. Extraocular muscles are intact. Pupils equal and reactive to light. Mucosa is moist. Throat is clear. HEART: Regular rate. LUNGS: Decreased breath sounds, but clear to auscultation bilaterally. ABDOMEN: Soft, nontender. Positive bowel sounds. No guarding, no rebound, and no CVA tenderness. EXTREMITIES: The left lower extremity has an ulcer 3 x 3 cm with black eschar, +1/4 pitting edema. There is redness up to about senior care up the leg to the knee, it is getting worse with swelling and redness and it also looks worse. LYMPHATICS: Thyroid midline. No palpable appreciable lymphadenopathy. LABORATORY DATA: She has 7.6 white count, 11.2 hemoglobin, 35.4 hematocrit with 284 platelets on admission. The x-ray showed unremarkable but look for osteomyelitis. I will get an MRI. She has 141 sodium, , potassium 4.7, CO2 is 28, anion gap is 14, BUN 29, creatinine 1.2, GFR is 52, sugar is 94, calcium is 8.9, total bili is 0.4, AST is 25, ALT is 16, alk phos 96, total protein 8, albumin is 3.9. INR is 1.23. IMPRESSION: When she came in, she had a cellulitis, persistent, failed outpatient therapy. She has an ulcer to the left leg. She has a little bit of a UTI with mild bacteria, a little bit of CHF with edema and she is on IV antibiotics by Infectious Disease, and she is currently on Bactroban cream, Ecotrin, Lasix, Lipitor, Merrem IV, Nitro-Dur, Tylenol and Zyvox. She will have consults with Infectious Disease and Podiatry. We will get an MRI of the lower extremity to make sure it is not an osteomyelitis. Richard Byers DO MTDAdelaide
--- NOTE | 2018-05-28 19:44 | CON ---
Copied To: Magdaleno Connors MD Attending MD: Magdaleno Connors MD DATE: 05/28/2018 LOCATION: Patient is seen in room 562, bed 2. CHIEF COMPLAINT: Weakness from several days. HISTORY OF PRESENT ILLNESS: This is an 88-year-old female with past medical history significant for coronary artery disease and hypertension and whose daughters, granddaughter and great granddaughter are present and said the patient states that she had a trauma in left leg and trauma revealed the patient had continue, his leg did not heal, now admitted with fever of 102, Infectious disease consultation requested. Patient states that she does not have any pain in the leg, although obvious site of trauma to as leg as far as the skin is concerned on the leg. There has been no chest pain, shortness of breath. No abdominal pain, diarrhea, or constipation. No bright red blood per rectum. No melena. No dysuria or frequency. REVIEW OF SYSTEMS: Twelve-point review of systems performed. PAST MEDICAL HISTORY: Significant for hypertension, high cholesterol, cataract, coronary artery disease. PAST SURGICAL HISTORY: Significant for cardiac catheterization, stent placement, and hysterectomy. ALLERGIES: PATIENT HAS NO KNOWN ALLERGIES TO ANY ANTIBIOTICS. SOCIAL HISTORY: She lives at home, but her daughters attend to her. MEDICATIONS AT HOME: Include nitroglycerin patch, furosemide, Lipitor, and aspirin. PHYSICAL EXAMINATION GENERAL: She is in bed. No acute distress, slow to respond. VITAL SIGNS: Temperature of 102.4, blood pressure is 130/70, respiratory rate of 20 with heart rate of 91, oxygen saturation is at 96% with the patient's BMI at 25. HEENT: Unremarkable. NECK: Supple. LUNGS: Decreased breath sounds. HEART: Normal S1 and S2. ABDOMEN: Soft, nontender. No rebound or guarding. LABORATORY EXAMINATION: Reveals the patient's white count of 12,500, hemoglobin of 10, platelets of 240, 95% neutrophils. Coagulation is noted. The blood gasses are reviewed. Patient's chemistries are noted. LFTs are mildly elevated. Urinalysis reveals 25 to 30 wbc's. Large leukocyte esterase. Examination of patient's leg appears to have chronic changes and dry heal eschar. Nontender to touch. There is no discharge. I do not believe there is fever to be from this leg. X-ray of the legs reviewed and shows apparent radiolucent lesion. The medial subarticular cyst could represent osteomyelitis in appropriate setting. Ultrasound of the extremities reviewed. Nguyen cyst is evident. There is no evidence of a DVT. EKG is reviewed. QTc of 465. Review of orders reveals the urine cultures are pending. Blood cultures are pending. MEDICATIONS: Patient was started on linezolid and add meropenem. ASSESSMENT AND PLAN: An 88-year-old female with coronary artery disease, hypertension, high cholesterol, cataracts, admitted with a fever, positive urinalysis. Sepsis with urine as the source. We will repeat the patient with meropenem, currently on Zyvox, pending blood cultures, urine cultures, and we will make further recommendations upon availability of initial culture results and we will follow closely with you. Magdaleno Connors MD
[2018-05-29] MEDS: Meropenem IV 1 gm in NS 50 ML IVPB SCH ×3 (06:18→21:16)
[2018-05-29 06:43] LABS: BASO # 0.01 K/mm3 (0.0-2.0); BASO % 0.2 % (0.0-3.0); EOS # 0.1 (0.0-0.7); EOS % 1.4 % (1.5-5.0); GRAN # 4.84 (1.4-6.5); GRAN % 72.8 % (50.0-68.0); LYMPH # 0.8 (1.2-3.4); LYMPH % 11.6 % (22.0-35.0); MEAN CELL VOLUME 84.4 fl (80.0-105.0); MEAN CORPUSCULAR HEMOGLOBIN 26.9 pg (25.0-35.0); MEAN CORPUSCULAR HGB CONC 31.9 g/dl (31.0-37.0); MEAN PLATELET VOLUME 10.1 fl (7.0-11.0); MONO # 0.9 (0.1-0.6); RBC 4.09 10^6/uL (3.5-6.1); RED CELL DISTRIBUTION WIDTH 15.1 % (11.5-14.5); WHITE BLOOD COUNT 6.6 10^3/ul (4.5-11.0)
[2018-05-29 06:51] LABS: ALB/GLOB RATIO 0.9 (1.1-1.8); ALBUMIN 3.1 g/dL (3.0-4.8)
[2018-05-29] MEDS: Nitroglycerin 0.4 mg/hr Top Patch TD SCH (09:15)
[2018-05-29] MEDS: Mupirocin 2% Ointment 15 GM TUBE TOP SCH (09:16)
[2018-05-29] MEDS: Linezolid 600 mg in D5W 300 ml 600 MG/300 ML BAG IVPB SCH (09:16)
[2018-05-29] MEDS: Enoxaparin 30 mg Syringe SC SCH (11:26)
--- NOTE | 2018-05-29 13:39 | CP.PCM.PN ---
<Nolan Alonzo - Last Filed: 05/29/18 13:31> Subjective - Date & Time of Evaluation Date of Evaluation: 05/29/18 Time of Evaluation: 13:31 - Subjective Subjective: Podiatry progress notes for attending Dr. Allen 88 y/o F patient seen and evaluated at the bedside for left leg ulcer and possible cellulitis. Patient was sitting in bed comfortably and not in acute distress. Patient is AAO X 3. Patient states that she didn't have any overnight acute events. She denies any pain in her LE. Patient denies any overnght F/N/V/ C or SOB. Patient denies any pedal complain at that time. Objective - Vital Signs/Intake and Output Vital Signs (last 24 hours): Temp Pulse Resp BP Pulse Ox 98.3 F 61 20 130/76 98 05/29/18 07:00 05/29/18 07:00 05/29/18 07:00 05/29/18 09:15 05/29/18 07:00 Intake and Output: 05/29/18 05/29/18 06:59 18:59 Intake Total 400 Balance 400 - Medications Medications: Current Medications Acetaminophen (Tylenol 325mg Tab) 650 mg PO Q4H PRN PRN Reason: Fever >100.4 F Last Admin: 05/28/18 05:47 Dose: 650 mg Aspirin (Ecotrin) 81 mg PO DAILY [facility] Last Admin: 05/29/18 09:16 Dose: 81 mg Atorvastatin Calcium (Lipitor) 20 mg PO DAILY [facility] Last Admin: 05/29/18 09:16 Dose: 20 mg Enoxaparin Sodium (Lovenox) 30 mg SC DAILY BO PRN Reason: Protocol Last Admin: 05/29/18 11:26 Dose: 30 mg Furosemide (Lasix) 20 mg IVP DAILY [facility] Meropenem (Merrem Iv 1 Gm Premix) 50 mls @ 100 mls/hr IVPB Q8 BO PRN Reason: Protocol Stop: 06/06/18 11:28 Last Admin: 05/29/18 13:12 Dose: 100 mls/hr Mupirocin (Bactroban Ointment) 0 gm TOP DAILY [facility] Last Admin: 05/29/18 09:16 Dose: 1 appl Nitroglycerin (Nitro-Dur 0.4 Mg/Hr Patch) 1 patch TD DAILY [facility] Last Admin: 05/29/18 09:15 Dose: 1 patch - Labs Labs: 05/29/18 06:00 05/29/18 06:00 PT 14.1 SECONDS (9.4-12.5) H 05/27/18 16:32 INR 1.23 05/27/18 16:32 APTT 29.9 Seconds (25.1-36.5) 05/27/18 16:32 - Constitutional Appears: Well, Non-toxic, No Acute Distress - Head Exam Head Exam: ATRAUMATIC, NORMOCEPHALIC - Extremities Exam Additional comments: LE focused exam: Vasc: DP/PT pulses are faintly palpable b/l. Cap refill < 3 sec in all digits. Temp gradient warm to cool from proximal to distal. +1 pitting edema noted on the left LE Neuro: Gross and protective sensations are intact. Derm: a superficial ulcer 4 X 2 X 0.1 cm which is covered partially by dry scab noted in the anterior aspect of the left leg at the mid leg level. No malodor, minimal serous drainage. No undermining, probing to bone or tracking. Mild erythema noted in theperiulcerative area. B/L skin hyperpigmentation noted at legs. MSK: No pain on palpating the periulcerative area. Muscle power 5/5 in all groups. - Neurological Exam Neurological Exam: Alert, Awake, Oriented x3 - Psychiatric Exam Psychiatric exam: Normal Affect, Normal Mood Assessment and Plan - Assessment and Plan (Free Text) Assessment: 88 y/o F patient seen and evaluated at the bedside for left leg ulcer and cellulitis Plan: Patient seen and evaluated at the bedside. Plan discussed in details with attending Dr. Allen Chart, vitals and labs reviewed; Afebrile, no leukocytosis Venous dupplex reviewed; No evidence of OM Left Tib-fibula X-ray reviewed; Distal radiolucent area of the medial tibia might be consistent with OM. Ordered MRI left LE Patient left leg dressed using bactroban and DSD. Podiatry will continue to follow up the patient while in house <Norm Allen - Last Filed: 05/31/18 15:48> Objective - Vital Signs/Intake and Output Vital Signs (last 24 hours): Temp Pulse Resp BP Pulse Ox 97.9 F 66 18 138/80 99 05/30/18 06:00 05/30/18 06:00 05/30/18 06:00 05/30/18 09:10 05/30/18 06:00 - Labs Labs: 05/30/18 06:30 05/30/18 06:30 PT 14.1 SECONDS (9.4-12.5) H 05/27/18 16:32 INR 1.23 05/27/18 16:32 APTT 29.9 Seconds (25.1-36.5) 05/27/18 16:32 Attending/Attestation - Attestation I have personally seen and examined this patient.: Yes I have fully participated in the care of the patient.: Yes I have reviewed all pertinent clinical information, including history, physical exam and plan: Yes
--- NOTE | 2018-05-29 14:57 | PN ---
Copied To: Magdaleno Connors MD Attending MD: Magdaleno Connors MD DATE: 05/29/2018 SUBJECTIVE: The patient is seen in room 572, bed 2. The patient's daughters are present. The patient is awake and alert. She requests to go home. Her temperature has been down since yesterday. T-max was yesterday at 06:00 a.m. at 102.4 and she is doing much better. The patient's daughters also feel the same way that the patient is doing better. PHYSICAL EXAMINATION: VITAL SIGNS: On exam, temperature is 98, blood pressure is 130/70, respiratory rate of 20, heart rate of 60. HEENT: Examination of HEENT is unremarkable. NECK: Supple. LUNGS: Have decreased breath sounds. HEART: Normal S1, S2. ABDOMEN: Soft, nontender. LABORATORY DATA: Laboratory examination reveals a white count of 6.6, hemoglobin of 11 and platelets of 224. The chemistries reveals the creatinine is 1.3. The urinalysis is noted. Microbiology reveals the blood cultures are negative. Urine cultures are pending. Review of orders reveals the patient to be on meropenem. ASSESSMENT AND PLAN: An 88-year-old female with history of coronary artery disease, hypertension and admitted with sepsis with urine as the source. The leg has a chronic clean wound. We will discontinue the Zyvox. We are waiting for the urine culture and be able to change to p.o. once the urine culture is available and switch to p.o. antibiotics. We will discontinue the Zyvox this time. Negative blood cultures. Waiting for urine cultures. Switch to p.o. to complete therapy. I do not believe the fever is from the leg. Most likely, it is from the urine with the patient did have frequency at home. Magdaleno Connors MD
--- NOTE | 2018-05-29 15:15 | PN ---
Copied To: Richard Byers DO Attending MD: Richard Byers DO DATE: 05/29/2018 SUBJECTIVE: She is resting comfortably in bed. Family is present. Skin ulcer on the left leg and the redness are definitely improving. She had a mild UTI much of anything. I think it is more of the cellulitis of the lower extremity and the ulcer. Awaiting for the MRI report back to make sure it is not an osteo. She is on Bactroban cream, Ecotrin, Lasix, Lipitor, Lovenox, I added. She has not been out of bed yet. I ordered her to get out of bed again. Merrem IV, nitroglycerin, Tylenol, and Zyvox. PHYSICAL EXAMINATION: VITAL SIGNS: She has a 98.3 temperature, 61 pulse, 129/76 blood pressure, 20 respiratory rate, 98% O2 sat on room air. HEENT: Head is atraumatic, normocephalic. HEART: Regular rate. LUNGS: Decreased breath sounds, but clear. ABDOMEN: Soft, nontender. EXTREMITIES: Left leg is wrapped up, is less swollen and that is good, the ulcer is dry and it is less red, all improving. LABORATORY DATA: She has a urine that showed large leukocyte. She has a white count of 6.6 down from 12.5, 11 hemoglobin, 34.5 hematocrit with 224 platelets. She has 136 sodium, potassium 4.4, BUN 30, creatinine 1.3. The BUN and creatinine went up. I decreased the Lasix IV to 20 mg IV daily. Sugar is 92. Calcium is 8, phosphorous 3.3, magnesium 2.2. Total bilirubin is 0.4, AST is 57, ALT is 46, alk phos 80. Total protein 6.7. No growth in the blood right now. She is being seen by Infectious Disease and steam engineer, awaiting for the MRI. If it is positive, she will probably need 4 weeks of IV antibiotics. If it is negative, we could probably change it to p.o. and hopefully discharge her tomorrow, depending on physical therapy says that she can walk okay and we will check her labs tomorrow. Encourage her to get out of bed to chair and continue with the treatment for the ulcer of the left leg, the cellulitis of the left leg, and the UTI. Richard Byers DO [facility] # [id number] MTDAdelaide
[2018-05-29 21:51] VITALS: RESP 18
[2018-05-30] MEDS: Meropenem IV 1 gm in NS 50 ML IVPB SCH (05:16)
[2018-05-30 07:02] LABS: BASO # 0.01 K/mm3 (0.0-2.0); BASO % 0.2 % (0.0-3.0); EOS # 0.1 (0.0-0.7); EOS % 2.2 % (1.5-5.0); GRAN # 2.08 (1.4-6.5); GRAN % 40.9 % (50.0-68.0); HEMOGLOBIN 11.5 g/dL (12.0-16.0); LYMPH # 1.6 (1.2-3.4); LYMPH % 31.7 % (22.0-35.0); MEAN CELL VOLUME 84.6 fl (80.0-105.0); MEAN CORPUSCULAR HEMOGLOBIN 26.9 pg (25.0-35.0); MEAN CORPUSCULAR HGB CONC 31.8 g/dl (31.0-37.0); MEAN PLATELET VOLUME 10.1 fl (7.0-11.0); MONO # 1.3 (0.1-0.6); RBC 4.28 10^6/uL (3.5-6.1); RED CELL DISTRIBUTION WIDTH 15.2 % (11.5-14.5); WHITE BLOOD COUNT 5.1 10^3/ul (4.5-11.0)
[2018-05-30 07:29] LABS: ALB/GLOB RATIO 0.8 (1.1-1.8); ALBUMIN 3.2 g/dL (3.0-4.8); CALCIUM 8.6 mg/dL (8.4-10.5)
[2018-05-30 08:06] VITALS: BP 138/80; PULSE 66; TEMP 97.9; O2SAT 99
[2018-05-30] MEDS ORDERED: Meropenem IV 1 gm in NS 50 ML IVPB SCH (08:33)
[2018-05-30] MEDS: Enoxaparin 30 mg Syringe SC SCH (09:09)
[2018-05-30] MEDS: Mupirocin 2% Ointment 15 GM TUBE TOP SCH (09:09)
[2018-05-30] MEDS: Nitroglycerin 0.4 mg/hr Top Patch TD SCH (09:10)
--- NOTE | 2018-05-30 09:28 | PN ---
Copied To: Richard Byers DO Attending MD: Richard Byers DO DATE: 05/30/2018 SUBJECTIVE: Waiting for the MRI report to come back this morning. She is on Bactroban cream, Ecotrin, Lasix, Lipitor, Lovenox, Merrem IV, Nitro-Dur, Tylenol. She is resting comfortably in bed. She slept well. Family is with her. She is eating okay. She was getting out of bed, I think yesterday. PHYSICAL EXAMINATION: VITAL SIGNS: A 97.7 temperature, 68 pulse, 104/54 blood pressure, 18 respiratory rate, 100% O2 sat on room air. HEENT: Head is atraumatic, normocephalic. Throat is moist. NECK: Supple. HEART: Regular rate. LUNGS: Clear to auscultation. ABDOMEN: Soft, nontender. Positive bowel sounds. EXTREMITIES: No edema. The left leg is wrapped where she has an ulcer and it was cellulitic when she came in with lots of edema. LABORATORY DATA: White count 6.6, 11 hemoglobin, 34.5 hematocrit with 224 platelets. She has a 136 sodium, potassium 4.4, BUN is 30, creatinine 1.3, sugar is 92, calcium is 8, phosphorus 3.3, magnesium 2.2, AST is 57, ALT is 46, alkaline phosphatase 80, total protein 6.7 that was yesterday's labs, waiting for this morning's to populate. No growth in the urine or blood. ASSESSMENT AND PLAN: We are waiting for the MRI of the area which x-rays thought it was possible osteomyelitis osteomyelitis, she will need a PICC line and four weeks of antibiotics. If it is a negative MRI, I am hoping that she could be discharged on oral antibiotics. Hopefully, she will have a good morning with a good MRI report and if so, we are going to try and discharge her on oral antibiotics this afternoon if it is okay with Infectious Disease. She is here with cellulitis, ulcer, failed outpatient treatment and care, got worse. She also has urinary tract infection, mild congestive heart failure. Richard Byers DO [facility] # [id number] JOANNE
--- NOTE | 2018-05-30 17:34 | US ---
PROCEDURE: Lower extremity ISAAK exam HISTORY: Peripheral vascular disease with pain and claudication. Previous smoker PHYSICIAN(S): Lyndon Basilio MD. FINDINGS: The exam is limited by calcified noncompressible vessels distally. The resting ABIs are not obtainable. The brachial systolic pressures are symmetric. The high thigh PVR waveforms are relatively normal and symmetric. . The calf PVR waveforms augment normally. The ankle and metatarsal waveforms are moderately to severely blunted bilaterally. This is consistent with bilateral tibial disease, greater on the left than the right. IMPRESSION: 1. Limited study due to calcified vessels. 2. 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
--- NOTE | 2018-06-03 09:51 | PQF ---
PROVIDER RESPONSE TEXT: As per id REVIEWER QUERY TEXT: Conflicting Documentation Clarification A single mention or documentation of multiple diagnoses for the same clinical presentation appears in the record. Please clarify the diagnosis/diagnoses. Please also document if the condition is: -- Confirmed and current -- Confirmed, treated and resolved -- Ruled out -- Other, please specify The patient's Clinical Indicators include: ID security system sales consultant documents "sepsis with urine as the source" on his consult and progress notes. You do n ot document this in your notes (no discharge summary at time of coding). Do you agree, disagree, unde termined with systemic sepsis for this patient? If you agree, was this present on admission? Thank you. Query created by: Julia Ahuja on 05/31/2018 9:16 AM Electronically signed by: Richard Byers DO 06/03/2018 9:48 AM
--- NOTE | 2018-06-06 00:56 | DS ---
Copied To: Richard Byers DO Attending MD: Richard Byers DO HISTORY OF PRESENT ILLNESS: She did very well. This morning, the MRI was negative for osteomyelitis. I discussed this with the Infectious Disease doctor and she is able to be taken off the Merrem IV and put on oral antibiotics. She has cellulitis with failed outpatient treatment. She had urinary tract infection. She had an ulcer on the leg, a wound from hitting a table and she did well. She improved. She will be discharged on oral antibiotics. Richard Byers DO
== END 2018-05-30 13:35 | DRG 872 ==
LOC: ED 15:19 → ERH 17:18 → 5RNO 19:23 → 5RSO 05-28 14:38
PROVIDERS: ADMIT Family Medicine; ATTEND Family Medicine
DX: A41.9 Sepsis, unspecified organism (principal); L97.929 Non-pressure chronic ulcer of unspecified part of left lower leg with unspecified severity; L03.116 Cellulitis of left lower limb; N39.0 Urinary tract infection, site not specified; I11.0 Hypertensive heart disease with heart failure; I50.9 Heart failure, unspecified; E78.00 Pure hypercholesterolemia, unspecified; E78.5 Hyperlipidemia, unspecified; H26.9 Unspecified cataract; I25.10 Atherosclerotic heart disease of native coronary artery without angina pectoris; I73.9 Peripheral vascular disease, unspecified; Z79.82 Long term (current) use of aspirin; Z90.710 Acquired absence of both cervix and uterus; Z95.5 Presence of coronary angioplasty implant and graft; M71.22 Synovial cyst of popliteal space [Baker], left knee

== ENCOUNTER 2019-01-10 18:43 | Inpatient (IN) | payer MEDICARE, OTHER ==
[2019-01-10 19:02] VITALS: BMI 23.4
[2019-01-10] MEDS ORDERED: Sodium Chloride 0.9% 1,000 ML IV SCH (19:30)
[2019-01-10 20:05] LABS: BASO # 0.03 K/mm3 (0.0-2.0); BASO % 0.5 % (0.0-3.0); EOS # 0.2 (0.0-0.7); EOS % 2.8 % (1.5-5.0); HEMOGLOBIN 11.5 g/dL (12.0-16.0); LYMPH # 1.7 (1.2-3.4); LYMPH % 26.7 % (22.0-35.0); MEAN CELL VOLUME 87.6 fl (80.0-105.0); MEAN CORPUSCULAR HEMOGLOBIN 26.4 pg (25.0-35.0); MEAN CORPUSCULAR HGB CONC 30.2 g/dl (31.0-37.0); MEAN PLATELET VOLUME 10.6 fl (7.0-11.0); MONO # 0.9 (0.1-0.6); MONO % 13.2 % (1.0-6.0); RBC 4.35 10^6/uL (3.5-6.1); RED CELL DISTRIBUTION WIDTH 14.9 % (11.5-14.5); WHITE BLOOD COUNT 6.5 10^3/uL (4.5-11.0)
[2019-01-10 20:13] LABS: INR 1.28; PARTIAL THROMBOPLASTIN TIME 33.5 Seconds (26.9-38.3); PROTHROMBIN TIME 14.2 SECONDS (9.4-12.5)
--- NOTE | 2019-01-10 20:26 | ED PDOC ---
Arrival/HPI - General Chief Complaint: Altered Mental Status Time Seen by Provider: 01/10/19 19:21 Historian: Patient - History of Present Illness Narrative History of Present Illness (Text): 01/10/19 19:15 Estella Mckeon is an 88 year old female, whose past medical history includes hypertension, CAD with cardiac stent placement, peripheral vasculear disease, dyslipidemia, and hysterectomy, who presents to the ED accompanied by family for aphasia since this morning. On arrival, patient is aphasic but otherwise awake and alert. Limited HPI and ROS secondary to patient's aphasia. Symptom Onset: Gradual Symptom Course: Unchanged Activities at Onset: Light Context: Home Past Medical History - Provider Review Nursing Documentation Reviewed: Yes - Cardiac Hx Cardiac Disorders: Yes Hx Hypertension: Yes - Pulmonary Hx Respiratory Disorders: No - Neurological Hx Neurological Disorder: Yes (syncope episode around 2 yrs ago) - HEENT Hx HEENT Disorder: Yes Hx Cataracts: Yes (l eye sx, r eye not ready) Hx Glaucoma: Yes - Renal Hx Renal Disorder: No - Endocrine/Metabolic Hx Endocrine Disorders: No - Hematological/Oncological Hx Blood Disorders: No - Integumentary Hx Dermatological Disorder: Yes Other/Comment: cellulitis lle redness dryness, irregular closed wound black and red in color currounded by red skin, small round callous to r 2nd toe 0/4cm round - Musculoskeletal/Rheumatological Hx Falls: No - Gastrointestinal Hx Gastrointestinal Disorders: No - Genitourinary/Gynecological Hx Genitourinary Disorders: No - Psychiatric Hx Psychophysiologic Disorder: No Hx Substance Use: No - Surgical History Hx Cardiac Catheterization: Yes Hx Coronary Stent: Yes Hx Hysterectomy: Yes Family/Social History - Physician Review Nursing Documentation Reviewed: Yes Family/Social History: Unknown Family HX Smoking Status: Never Smoked Hx Alcohol Use: No Hx Substance Use: No Allergies/Home Meds Allergies/Adverse Reactions: Allergies No Known Allergies Allergy (Verified 01/10/19 19:02) Review of Systems - Review of Systems Systems not reviewed;Unavailable: Other (aphasia) Neurological: Speech Changes (+aphasia) Physical Exam Vital Signs Reviewed: Yes Vital Signs Pulse Resp BP Pulse Ox 01/10/19 19:20 60 18 155/84 H 99 Temperature: Afebrile Blood Pressure: Hypertensive Pulse: Regular Respiratory Rate: Normal Appearance: Positive for: Well-Appearing Pain Distress: None Mental Status: Positive for: other (Alert) - Systems Exam Head: Present: Atraumatic, Normocephalic Pupils: Present: PERRL Extroacular Muscles: Present: EOMI Conjunctiva: Present: Normal Mouth: Present: Moist Mucous Membranes Neck: Present: Normal Range of Motion Respiratory/Chest: Present: Clear to Auscultation, Good Air Exchange. No: Respiratory Distress, Accessory Muscle Use Cardiovascular: Present: Regular Rate and Rhythm Abdomen: No: Tenderness, Distention, Peritoneal Signs Upper Extremity: Present: Normal Inspection. No: Cyanosis, Edema Lower Extremity: Present: Normal Inspection. No: Edema Neurological: Present: Motor Func Grossly Intact. No: Speech Normal (Aphasia) Skin: Present: Warm, Dry, Normal Color. No: Rashes Psychiatric: Present: Alert Medical Decision Making ED Course and Treatment: 01/10/19 19:15 Impression: 88 year old female brought in for aphasia since this morning. Plan: -- CT Head w/o contrast -- EKG -- Chest X-ray -- Labs, blood type and screen, troponin, lipid panel -- IV fluids -- Reassess and disposition Prior Visits: Notes and results from previous visits were reviewed. Progress Notes: Reviewed EKG, NSR at 62 bpm. Sinus arrhythmia. Non-specific ST/T wave changes. 01/10/19 20:35 Reviewed radiology, Chest X-ray shows no acute processes. CT Head: BRAIN There is identified a 2.8 x 3.1 cm hyperdense focus in the left frontal lobe which extends to the left inner skull table compatible with acute intraparenchymal hemorrhage. Additionally, minimal hemorrhage is seen collected in the left frontal cortical sulci compatible with a subarachnoid hemorrhage component. No CT evidence for acute territorial infarct. No midline shift or extra-axial collections. There is again identified a large expansile pituitary mass which measures approximately 2.0 x 2.6 cm in AP and transverse dimensions respectively. This appears unchanged in size. There are bilateral periventricular and subcortical white matter hypolucencies compatible with mild chronic microvascular disease. There is moderate age-appropriate cerebral/cerebellar atrophy noted. VENTRICLES: No hydrocephalus. VASCULAR: Atherosclerotic vascular plaquing again seen within the vertebral arteries and carotid siphons bilaterally. ORBITS: The orbits are unremarkable. SINUSES AND MASTOIDS: The paranasal sinuses and mastoid air cells are clear. BONES: No fracture. SOFT TISSUES: Unremarkable. IMPRESSION: 1. An approximately 2.8 x 3.1 cm predominantly acute intraparenchymal hemorrhage is seen in the left frontal lobe. Some associated subarachnoid hemorrhage is noted within the left frontal cortical sulci. 2. 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 This appears to have remained radiographically unchanged. 3. Mild chronic microvascular disease. 4. Moderate age-appropriate cerebral/cerebellar atrophy. 5. Atherosclerotic vascular plaquing within the vertebral arteries and carotid siphons bilaterally Electronically signed on Jan 10, 2019 8:32:11 PM EDT by: Aureliano Wilson M.D., DEANDRE Certified By [facility] Fellowship Trained MRI and CT Specialist 01/10/19 20:[address] Victor, neurosurgery, who is aware and agrees with plan. States to repeat CT scan in the morning and to control pt's blood pressure. 01/10/19 20:[address] Smith, director of religious activities, who is aware and agrees to evaluate pt for ICU admission. 01/10/19 21:[address] Byers, who is aware and agrees with plan. Accepts pt in to his service. Pt will be admitted to the ICU for acute intraparenchymal hemorrhage. - Critical Care Critical Care Minutes: 30 minutes Narrative Critical Care (Text): Management of acute intraparenchymal bleed. - Lab Interpretations Lab Results: PT 14.2 SECONDS (9.4-12.5) H 01/10/19 19:58 INR 1.28 01/10/19 19:58 APTT 33.5 Seconds (26.9-38.3) 01/10/19 19:58 I have reviewed the lab results: Yes - RAD Interpretation Radiology Orders: 01/10/19 19:21 HEAD W/O CONTRAST [CT] Stat CHEST PORTABLE [RAD] Stat Specifications Checker: ED Physician, Radiologist - EKG Interpretation Interpreted by ED Physician: Yes Type: 12 lead EKG - Medication Orders Current Medication Orders: Sodium Chloride (Sodium Chloride 0.9%) 1,000 mls @ 100 mls/hr IV .Q10H BO Last Admin: 01/10/19 19:47 Dose: 100 mls/hr eMAR Start Stop Document 01/10/19 19:47 SS (Rec: 01/10/19 19:47 SS [id number]) Intravenous Solution Start Date 01/10/19 Start Time 19:47 NIHSS Scale ([place]) Time Performed: 19:15 - How Severe is the Stoke Baseline Level of Consciousness: 0=Alert LOC to Questions: 0=Both comments correct LOC to commands: 0=Obeys both correctly Best Gaze: 0=Normal Visual: 0=No visual loss Facial: 0=Normal Motor Arm - Left: 0=No drift Motor Arm - Right: 0=No drift Motor Leg - Left: 0=No drift Motor Leg - Right: 0=No drift Limb Ataxia: 0=Absent Sensory: 0=Normal Best Language: 2=Severe aphasia Dysarthia: 2=Severe, near unintelligible or worse Extinction & Inattention (Neglect): 0=Normal, no object Score: 4 Risk Level: Minor Stroke Risk rTPA Inclusion/Exclusion - Refusal of Treatment Patient Refused Treatment: No - Inclusion Criteria for Altepase All of the below criteria for inclusion were reviewed: Yes Patient is 18 years or Older: Yes The Clinical Diagnosis of Ischemic Stroke That is Causing a Potentially Disabling Neurological Deficit: No Time of Onset is Well Established to be Less Than 270 Minute Before Treatment Would Begin: No Risk/Benefit Discussed With Patient/Family Member Present: Yes - Exclusion Criteria for Altepase Current Intracranial Hemorrhage: Yes Subarachnoid hemorrhage: Yes Current Severe Uncontrolled Hypertension: No - Warning to TPA With Conditions Condition: Recent intracranial hemorrhage - Scribe Statement The provider has reviewed the documentation as recorded by the Cecilia Calloway Provider Scribe Attestation: All medical record entries made by the Margaritaibsharonda were at my direction and personally dictated by me. I have reviewed the chart and agree that the record accurately reflects my personal performance of the history, physical exam, medical decision making, and the department course for this patient. I have also personally directed, reviewed, and agree with the discharge instructions and disposition. Disposition/Present on Arrival - Present on Arrival Any Indicators Present on Arrival: No History of DVT/PE: No History of Uncontrolled Diabetes: No Urinary Catheter: No History of Decub. Ulcer: No History Surgical Site Infection Following: None - Disposition Have Diagnosis and Disposition been Completed?: Yes Diagnosis: Intraparenchymal hemorrhage of brain Disposition: HOSPITALIZED Disposition Time: 21:30 Condition: GUARDED
[2019-01-10 20:27] LABS: ALBUMIN 3.8 g/dL (3.0-4.8); ALT/SGPT 18 U/L (7-56); AST/SGOT 32 U/L (14-36); BLOOD UREA NITROGEN 18 mg/dL (7-21); CALCIUM 8.7 mg/dL (8.4-10.5); GFR NON-AFRICAN AMERICAN 53; HDL CHOLESTEROL 70 mg/dL (29-60)
[2019-01-10] MEDS ORDERED: Labetalol 5mg/ml (4ml) IV STA (20:28)
[2019-01-10 20:30] LABS: LDL CHOLESTEROL 55 mg/dL (0-129)
[2019-01-10 20:34] LABS: TROPONIN I < 0.01 ng/mL
--- NOTE | 2019-01-10 23:07 | CP.PCM.CON ---
<Johnnie Rodriguez - Last Filed: 01/10/19 23:18> History of Present Illness - History of Present Illness History of Present Illness: Johnnie Rodriguez PGY2 ICU Consult note for Dr. Smith 88 year old with past medical history of CAD with stents and HTN presents with expressive aphasia. History obtained bedside form daughter. Daughter states patient was in her good regular health and around 12pm today patient started to develop difficulties speaking. Patient did not have facial droop, fall or any loss of consciousness. Patient was able to follow commands and was alert. Unable to obtain full ROS due to patients aphasia. Patient found to have intraparenchymal haemorrhage. PMH: CAD with stents and HTN PSH: stents Allergies: NKDA Social: tobacco years many years ago, denies alcohol or illicit drug use Family: non contributory PMD: [place] Review of Systems - Review of Systems Review of Systems: Unable to obtain due to expressive aphasia Past Patient History - Past Social History Smoking Status: Never Smoked - CARDIAC Hx Cardiac Disorders: Yes Hx Hypertension: Yes - PULMONARY Hx Respiratory Disorders: No - NEUROLOGICAL Hx Neurological Disorder: Yes (syncope episode around 2 yrs ago) - HEENT Hx HEENT Problems: Yes Hx Cataracts: Yes (l eye sx, r eye not ready) Hx Glaucoma: Yes - RENAL Hx Chronic Kidney Disease: No - ENDOCRINE/METABOLIC Hx Endocrine Disorders: No - HEMATOLOGICAL/ONCOLOGICAL Hx Blood Disorders: No - INTEGUMENTARY Hx Dermatological Problems: Yes Other/Comment: cellulitis lle redness dryness, irregular closed wound black and red in color currounded by red skin, small round callous to r 2nd toe 0/4cm round - MUSCULOSKELETAL/RHEUMATOLOGICAL Hx Falls: No - GASTROINTESTINAL Hx Gastrointestinal Disorders: No - GENITOURINARY/GYNECOLOGICAL Hx Genitourinary Disorders: No - PSYCHIATRIC Hx Psychophysiologic Disorder: No Hx Substance Use: No - SURGICAL HISTORY Hx Cardiac Catheterization: Yes Hx Coronary Stent: Yes Hx Hysterectomy: Yes Meds Allergies/Adverse Reactions: Allergies Allergy/AdvReac Type Severity Reaction Status Date / Time No Known Allergies Allergy Verified 01/10/19 19:02 - Medications Medications: Current Medications Hydralazine HCl (Apresoline) 10 mg IVP STAT [facility] Last Admin: 01/10/19 20:51 Dose: 10 mg Hydralazine HCl (Apresoline) 10 mg IVP Q4 PRN PRN Reason: Hypertension Physical Exam - Constitutional Appears: Non-toxic, No Acute Distress - Head Exam Head Exam: ATRAUMATIC, NORMAL INSPECTION, NORMOCEPHALIC - Eye Exam Eye Exam: EOMI, Normal appearance, PERRL Pupil Exam: NORMAL ACCOMODATION - ENT Exam ENT Exam: Mucous Membranes Moist - Respiratory Exam Respiratory Exam: Clear to Auscultation Bilateral, NORMAL BREATHING PATTERN - Cardiovascular Exam Cardiovascular Exam: REGULAR RHYTHM, +S1, +S2 - GI/Abdominal Exam GI & Abdominal Exam: Normal Bowel Sounds. absent: Tenderness - Extremities Exam Extremities exam: Positive for: full ROM, pedal pulses present. Negative for: pedal edema - Neurological Exam Neurological exam: Alert Additional comments: Expressive aphasia, following commands, 5/5 Motor strength b/l upper and lower extremities Results - Vital Signs Recent Vital Signs: Last Vital Signs Temp Pulse 68 01/10/19 22:12 Resp 18 01/10/19 22:12 BP 175/75 H 01/10/19 22:12 Pulse Ox 99 01/10/19 22:12 - Labs Result Diagrams: 01/10/19 19:58 01/10/19 19:58 Labs: Laboratory Results - last 24 hr 01/10/19 01/10/19 01/10/19 19:45 19:58 19:58 WBC 6.5 RBC 4.35 Hgb 11.5 L Hct 38.1 MCV 87.6 D MCH 26.4 MCHC 30.2 L RDW 14.9 H Plt Count 206 MPV 10.6 Neut % (Auto) 56.8 Lymph % (Auto) 26.7 [place] % (Auto) 13.2 H Eos % (Auto) 2.8 Baso % (Auto) 0.5 Lymph # (Auto) 1.7 [place] # (Auto) 0.9 H Eos # (Auto) 0.2 Baso # (Auto) 0.03 Absolute Neuts (auto) 3.67 PT 14.2 H INR 1.28 APTT 33.5 Sodium Potassium Chloride Carbon Dioxide Anion Gap BUN Creatinine Est GFR ( Amer) Est GFR (Non-Af Amer) Random Glucose Calcium Total Bilirubin AST ALT Alkaline Phosphatase Troponin I Total Protein Albumin Globulin Albumin/Globulin Ratio Triglycerides Cholesterol LDL Cholesterol Direct HDL Cholesterol Blood Type O POSITIVE Blood Type Confirm Antibody Screen Negative BBK History Checked No verified bt 01/10/19 01/10/19 19:58 21:23 WBC RBC Hgb Hct MCV MCH MCHC RDW Plt Count MPV Neut % (Auto) Lymph % (Auto) [place] % (Auto) Eos % (Auto) Baso % (Auto) Lymph # (Auto) [place] # (Auto) Eos # (Auto) Baso # (Auto) Absolute Neuts (auto) PT INR APTT Sodium 139 Potassium 4.6 Chloride 107 Carbon Dioxide 26 Anion Gap 11 BUN 18 Creatinine 1.0 Est GFR ( Amer) > 60 Est GFR (Non-Af Amer) 53 Random Glucose 88 Calcium 8.7 Total Bilirubin 0.6 AST 32 ALT 18 Alkaline Phosphatase 77 Troponin I < 0.01 Total Protein 7.6 Albumin 3.8 Globulin 3.8 Albumin/Globulin Ratio 1.0 L Triglycerides 88 Cholesterol 140 LDL Cholesterol Direct 55 HDL Cholesterol 70 H Blood Type Blood Type Confirm O POSITIVE Antibody Screen BBK History Checked Assessment & Plan - Assessment and Plan (Free Text) Assessment: 88 year old with past medical history of CAD with stents and HTN presents with expressive aphasia and found to have an approximately 2.8 x 3.1 cm predominantly acute intraparenchymal hemorrhage in the left frontal lobe. Plan: 1. Aphasia secondary to acute intraparenchymal hemorrhage -patient is alert, awake -expressive aphasia -Head CT scan: 1. An approximately 2.8 x 3.1 cm predominantly acute intraparenchymal hemorrhage is seen in the left frontal lobe. Some associated subarachnoid he morrhage is noted within the left frontal cortical sulci. 2. 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 This appears to have remained radiographically unchanged. 3. Mild chronic microvascular disease. 4. Moderate age-appropriate cerebral/cerebellar atrophy. 5. Atherosclerotic vascular plaquing within the vertebral arteries and carotid siphons bilaterally -Dr. Victor, neurosurgery, aware and requests repeat CT scan in the morning and blood pressure control -Neurology consulted Dr. [place], left message with answering service -Hydralazine PRN for BP control -neuro checks -seizure precautions -speech and swallow evaluation -NPO 2. CAD -will resume home medications 3. HTN -will resume home medications Patient will me monitored in the ICU Case discussed and patient seen with Dr. Smith <Shabbir Smith - Last Filed: 01/11/19 03:21> Meds - Medications Medications: Current Medications Hydralazine HCl (Apresoline) 10 mg IVP STAT [facility] Last Admin: 01/10/19 20:51 Dose: 10 mg Hydralazine HCl (Apresoline) 10 mg IVP Q4 PRN PRN Reason: Hypertension Last Admin: 01/11/19 02:51 Dose: 10 mg Results - Vital Signs Recent Vital Signs: Last Vital Signs Temp 98.0 F 01/10/19 19:20 Pulse 88 01/11/19 02:51 Resp 18 01/10/19 22:12 BP 172/88 H 01/11/19 02:51 Pulse Ox 99 01/10/19 22:12 - Labs Result Diagrams: 01/10/19 19:58 01/10/19 19:58 Labs: Laboratory Results - last 24 hr 01/10/19 01/10/19 01/10/19 19:45 19:58 19:58 WBC 6.5 RBC 4.35 Hgb 11.5 L Hct 38.1 MCV 87.6 D MCH 26.4 MCHC 30.2 L RDW 14.9 H Plt Count 206 MPV 10.6 Neut % (Auto) 56.8 Lymph % (Auto) 26.7 [place] % (Auto) 13.2 H Eos % (Auto) 2.8 Baso % (Auto) 0.5 Lymph # (Auto) 1.7 [place] # (Auto) 0.9 H Eos # (Auto) 0.2 Baso # (Auto) 0.03 Absolute Neuts (auto) 3.67 PT 14.2 H INR 1.28 APTT 33.5 Sodium Potassium Chloride Carbon Dioxide Anion Gap BUN Creatinine Est GFR ( Amer) Est GFR (Non-Af Amer) Random Glucose Calcium Total Bilirubin AST ALT Alkaline Phosphatase Troponin I Total Protein Albumin Globulin Albumin/Globulin Ratio Triglycerides Cholesterol LDL Cholesterol Direct HDL Cholesterol Blood Type O POSITIVE Blood Type Confirm Antibody Screen Negative BBK History Checked No verified bt 01/10/19 01/10/19 19:58 21:23 WBC RBC Hgb Hct MCV MCH MCHC RDW Plt Count MPV Neut % (Auto) Lymph % (Auto) [place] % (Auto) Eos % (Auto) Baso % (Auto) Lymph # (Auto) [place] # (Auto) Eos # (Auto) Baso # (Auto) Absolute Neuts (auto) PT INR APTT Sodium 139 Potassium 4.6 Chloride 107 Carbon Dioxide 26 Anion Gap 11 BUN 18 Creatinine 1.0 Est GFR ( Amer) > 60 Est GFR (Non-Af Amer) 53 Random Glucose 88 Calcium 8.7 Total Bilirubin 0.6 AST 32 ALT 18 Alkaline Phosphatase 77 Troponin I < 0.01 Total Protein 7.6 Albumin 3.8 Globulin 3.8 Albumin/Globulin Ratio 1.0 L Triglycerides 88 Cholesterol 140 LDL Cholesterol Direct 55 HDL Cholesterol 70 H Blood Type Blood Type Confirm O POSITIVE Antibody Screen BBK History Checked Attending/Attestation - Attestation I have personally seen and examined this patient.: Yes I have fully participated in the care of the patient.: Yes I have reviewed all pertinent clinical information: Yes Notes (Text): 01/11/19 03:18 Patient was seen when she was in cubicle # 20 in the ER. Medical record was reviewed. Spoke to three daughters of patient. Agree with history, physical examination, assessment and plan.
[2019-01-11 06:34] LABS: BASO # 0.02 K/mm3 (0.0-2.0); BASO % 0.3 % (0.0-3.0); EOS # 0.1 (0.0-0.7); EOS % 1.2 % (1.5-5.0); HEMOGLOBIN 12.4 g/dL (12.0-16.0); LYMPH # 1.2 (1.2-3.4); LYMPH % 15.3 % (22.0-35.0); MEAN CELL VOLUME 87.1 fl (80.0-105.0); MEAN CORPUSCULAR HEMOGLOBIN 26.7 pg (25.0-35.0); MEAN CORPUSCULAR HGB CONC 30.7 g/dl (31.0-37.0); MEAN PLATELET VOLUME 10.6 fl (7.0-11.0); MONO # 0.6 (0.1-0.6); MONO % 7.8 % (1.0-6.0); RBC 4.64 10^6/uL (3.5-6.1); RED CELL DISTRIBUTION WIDTH 14.9 % (11.5-14.5); WHITE BLOOD COUNT 7.6 10^3/uL (4.5-11.0)
[2019-01-11 06:42] LABS: INR 1.27; PROTHROMBIN TIME 14.3 SECONDS (9.4-12.5)
[2019-01-11 06:47] LABS: ALBUMIN 3.8 g/dL (3.0-4.8); ALT/SGPT 15 U/L (7-56); AST/SGOT 35 U/L (14-36); BLOOD UREA NITROGEN 16 mg/dL (7-21); CALCIUM 8.9 mg/dL (8.4-10.5); GFR NON-AFRICAN AMERICAN 53
--- NOTE | 2019-01-11 07:56 | CP.CCUPN ---
<Nelson Estrella - Last Filed: 01/11/19 13:30> CCU Subjective - Physician Review Subjective (Free Text): Nelson Estrella, PGY1 ICU Progress Note for Dr. Bonita Peterson Patient was seen at bedside this morning. Daughter was present at bedside (Mey [phone]). Sister is also available as contact: Katelyn [phone]. Patient displays expressive aphasia. Patient is awake, alert. She follows commands and moves all extremities spontaneously. Spoke to daughter, patient's last stent placement was over 5 years ago and she hasn't been on blood thinners since. She explained that patient was on the phone with her sister when she noticed that patient had difficulty with speech. There was no associated tr auma or fall. ROS limited as patient is having difficulty with speech. CCU Objective - Vital Signs / Intake & Output Vital Signs (Last 4 hours): Vital Signs Pulse Resp BP Pulse Ox 01/11/19 04:30 71 28 H 97 01/11/19 04:20 72 24 97 01/11/19 04:11 75 33 H 155/59 H 98 01/11/19 04:10 79 28 H 97 01/11/19 04:00 77 98 Intake and Output (Last 8hrs): Intake & Output 01/10/19 01/11/19 01/11/19 22:59 06:59 14:59 Weight 54.431 kg Other: Voiding Method Bedpan - Physical Exam Head: Positive for: Atraumatic, Normocephalic Pupils: Positive for: PERRL Extroacular Muscles: Positive for: EOMI Conjunctiva: Positive for: Normal Mouth: Positive for: Moist Mucous Membranes Neck: Positive for: Normal Range of Motion Respiratory/Chest: Positive for: Clear to Auscultation, Good Air Exchange. Negative for: Respiratory Distress, Accessory Muscle Use, Wheezes Cardiovascular: Positive for: Regular Rate and Rhythm, Normal S1, S2 Abdomen: Negative for: Tenderness, Distention, Peritoneal Signs Upper Extremity: Positive for: Normal Inspection. Negative for: Cyanosis, Edema Lower Extremity: Positive for: Normal Inspection. Negative for: Edema Neurological: Positive for: Other (4/5 motor strength in all upper and lower extremities bilaterally. Sensation is intact. No signs of mass effect. ). Negative for: Speech Normal (Aphasia) Skin: Positive for: Warm, Dry, Normal Color. Negative for: Rashes Psychiatric: Positive for: Alert Other physical findings (Free Text): Non-verbal - Medications Active Medications: Active Medications Generic Name Dose Route Start Last Admin Trade Name Freq PRN Reason Stop Dose Admin Hydralazine HCl 10 mg 01/10/19 20:45 01/10/19 20:51 Apresoline IVP 10 mg STAT BO Administration Hydralazine HCl 10 mg 01/10/19 22:48 01/11/19 02:51 Apresoline IVP 10 mg Q4 PRN Administration Hypertension - Patient Studies Lab Studies: Lab Studies 01/11/19 01/11/19 01/11/19 Range/Units 05:30 05:30 05:30 WBC (4.5-11.0) 10^3/uL RBC (3.5-6.1) 10^6/uL Hgb (12.0-16.0) g/dL Hct (36.0-48.0) % MCV (80.0-105.0) fl MCH (25.0-35.0) pg MCHC (31.0-37.0) g/dl RDW (11.5-14.5) % Plt Count (120.0-450.0) 10^3/uL MPV (7.0-11.0) fl Neut % (Auto) (50.0-68.0) % Lymph % (Auto) (22.0-35.0) % [place] % (Auto) (1.0-6.0) % Eos % (Auto) (1.5-5.0) % Baso % (Auto) (0.0-3.0) % Lymph # (Auto) (1.2-3.4) [place] # (Auto) (0.1-0.6) Eos # (Auto) (0.0-0.7) Baso # (Auto) (0.0-2.0) K/mm3 Absolute Neuts (auto) (1.4-6.5) PT 14.3 H (9.4-12.5) SECONDS INR 1.27 APTT (26.9-38.3) Seconds Sodium 139 (132-148) mmol/L Potassium 4.9 (3.6-5.0) mmol/L Chloride 108 H (98-107) mmol/L Carbon Dioxide 24 (21-33) mmol/L Anion Gap 11 (10-20) BUN 16 (7-21) mg/dL Creatinine 1.0 (0.7-1.2) mg/dl Est GFR ( Amer) > 60 Est GFR (Non-Af Amer) 53 Random Glucose 86 (70-110) mg/dL Calcium 8.9 (8.4-10.5) mg/dL Total Bilirubin 0.7 (0.2-1.3) mg/dL AST 35 (14-36) U/L ALT 15 (7-56) U/L Alkaline Phosphatase 85 (38-126) U/L Troponin I 0.01 ng/mL Total Protein 7.7 (5.8-8.3) g/dL Albumin 3.8 (3.0-4.8) g/dL Globulin 3.9 gm/dL Albumin/Globulin Ratio 1.0 L (1.1-1.8) Triglycerides (35-160) mg/dL Cholesterol (130-200) mg/dL LDL Cholesterol Direct (0-129) mg/dL HDL Cholesterol (29-60) mg/dL Blood Type Blood Type Confirm Antibody Screen BBK History Checked 01/11/19 01/10/19 01/10/19 Range/Units 05:30 21:23 19:58 WBC 7.6 (4.5-11.0) 10^3/uL RBC 4.64 (3.5-6.1) 10^6/uL Hgb 12.4 (12.0-16.0) g/dL Hct 40.4 (36.0-48.0) % MCV 87.1 (80.0-105.0) fl MCH 26.7 (25.0-35.0) pg MCHC 30.7 L (31.0-37.0) g/dl RDW 14.9 H (11.5-14.5) % Plt Count 221 (120.0-450.0) 10^3/uL MPV 10.6 (7.0-11.0) fl Neut % (Auto) 75.4 H (50.0-68.0) % Lymph % (Auto) 15.3 L (22.0-35.0) % [place] % (Auto) 7.8 H (1.0-6.0) % Eos % (Auto) 1.2 L (1.5-5.0) % Baso % (Auto) 0.3 (0.0-3.0) % Lymph # (Auto) 1.2 (1.2-3.4) [place] # (Auto) 0.6 (0.1-0.6) Eos # (Auto) 0.1 (0.0-0.7) Baso # (Auto) 0.02 (0.0-2.0) K/mm3 Absolute Neuts (auto) 5.73 (1.4-6.5) PT (9.4-12.5) SECONDS INR APTT (26.9-38.3) Seconds Sodium 139 (132-148) mmol/L Potassium 4.6 (3.6-5.0) mmol/L Chloride 107 (98-107) mmol/L Carbon Dioxide 26 (21-33) mmol/L Anion Gap 11 (10-20) BUN 18 (7-21) mg/dL Creatinine 1.0 (0.7-1.2) mg/dl Est GFR ( Amer) > 60 Est GFR (Non-Af Amer) 53 Random Glucose 88 (70-110) mg/dL Calcium 8.7 (8.4-10.5) mg/dL Total Bilirubin 0.6 (0.2-1.3) mg/dL AST 32 (14-36) U/L ALT 18 (7-56) U/L Alkaline Phosphatase 77 (38-126) U/L Troponin I < 0.01 ng/mL Total Protein 7.6 (5.8-8.3) g/dL Albumin 3.8 (3.0-4.8) g/dL Globulin 3.8 gm/dL Albumin/Globulin Ratio 1.0 L (1.1-1.8) Triglycerides 88 (35-160) mg/dL Cholesterol 140 (130-200) mg/dL LDL Cholesterol Direct 55 (0-129) mg/dL HDL Cholesterol 70 H (29-60) mg/dL Blood Type Blood Type Confirm O POSITIVE Antibody Screen BBK History Checked 01/10/19 01/10/19 01/10/19 Range/Units 19:58 19:58 19:45 WBC 6.5 (4.5-11.0) 10^3/uL RBC 4.35 (3.5-6.1) 10^6/uL Hgb 11.5 L (12.0-16.0) g/dL Hct 38.1 (36.0-48.0) % MCV 87.6 D (80.0-105.0) fl MCH 26.4 (25.0-35.0) pg MCHC 30.2 L (31.0-37.0) g/dl RDW 14.9 H (11.5-14.5) % Plt Count 206 (120.0-450.0) 10^3/uL MPV 10.6 (7.0-11.0) fl Neut % (Auto) 56.8 (50.0-68.0) % Lymph % (Auto) 26.7 (22.0-35.0) % [place] % (Auto) 13.2 H (1.0-6.0) % Eos % (Auto) 2.8 (1.5-5.0) % Baso % (Auto) 0.5 (0.0-3.0) % Lymph # (Auto) 1.7 (1.2-3.4) [place] # (Auto) 0.9 H (0.1-0.6) Eos # (Auto) 0.2 (0.0-0.7) Baso # (Auto) 0.03 (0.0-2.0) K/mm3 Absolute Neuts (auto) 3.67 (1.4-6.5) PT 14.2 H (9.4-12.5) SECONDS INR 1.28 APTT 33.5 (26.9-38.3) Seconds Sodium (132-148) mmol/L Potassium (3.6-5.0) mmol/L Chloride (98-107) mmol/L Carbon Dioxide (21-33) mmol/L Anion Gap (10-20) BUN (7-21) mg/dL Creatinine (0.7-1.2) mg/dl Est GFR ( Amer) Est GFR (Non-Af Amer) Random Glucose (70-110) mg/dL Calcium (8.4-10.5) mg/dL Total Bilirubin (0.2-1.3) mg/dL AST (14-36) U/L ALT (7-56) U/L Alkaline Phosphatase (38-126) U/L Troponin I ng/mL Total Protein (5.8-8.3) g/dL Albumin (3.0-4.8) g/dL Globulin gm/dL Albumin/Globulin Ratio (1.1-1.8) Triglycerides (35-160) mg/dL Cholesterol (130-200) mg/dL LDL Cholesterol Direct (0-129) mg/dL HDL Cholesterol (29-60) mg/dL Blood Type O POSITIVE Blood Type Confirm Antibody Screen Negative BBK History Checked No verified bt Laboratory Results - last 24 hr 01/10/19 01/10/19 01/10/19 19:45 19:58 19:58 WBC 6.5 RBC 4.35 Hgb 11.5 L Hct 38.1 MCV 87.6 D MCH 26.4 MCHC 30.2 L RDW 14.9 H Plt Count 206 MPV 10.6 Neut % (Auto) 56.8 Lymph % (Auto) 26.7 [place] % (Auto) 13.2 H Eos % (Auto) 2.8 Baso % (Auto) 0.5 Lymph # (Auto) 1.7 [place] # (Auto) 0.9 H Eos # (Auto) 0.2 Baso # (Auto) 0.03 Absolute Neuts (auto) 3.67 PT 14.2 H INR 1.28 APTT 33.5 Sodium Potassium Chloride Carbon Dioxide Anion Gap BUN Creatinine Est GFR ( Amer) Est GFR (Non-Af Amer) Random Glucose Calcium Total Bilirubin AST ALT Alkaline Phosphatase Troponin I Total Protein Albumin Globulin Albumin/Globulin Ratio Triglycerides Cholesterol LDL Cholesterol Direct HDL Cholesterol Blood Type O POSITIVE Blood Type Confirm Antibody Screen Negative BBK History Checked No verified bt 01/10/19 01/10/19 01/11/19 19:58 21:23 05:30 WBC 7.6 RBC 4.64 Hgb 12.4 Hct 40.4 MCV 87.1 MCH 26.7 MCHC 30.7 L RDW 14.9 H Plt Count 221 MPV 10.6 Neut % (Auto) 75.4 H Lymph % (Auto) 15.3 L [place] % (Auto) 7.8 H Eos % (Auto) 1.2 L Baso % (Auto) 0.3 Lymph # (Auto) 1.2 [place] # (Auto) 0.6 Eos # (Auto) 0.1 Baso # (Auto) 0.02 Absolute Neuts (auto) 5.73 PT INR APTT Sodium 139 Potassium 4.6 Chloride 107 Carbon Dioxide 26 Anion Gap 11 BUN 18 Creatinine 1.0 Est GFR ( Amer) > 60 Est GFR (Non-Af Amer) 53 Random Glucose 88 Calcium 8.7 Total Bilirubin 0.6 AST 32 ALT 18 Alkaline Phosphatase 77 Troponin I < 0.01 Total Protein 7.6 Albumin 3.8 Globulin 3.8 Albumin/Globulin Ratio 1.0 L Triglycerides 88 Cholesterol 140 LDL Cholesterol Direct 55 HDL Cholesterol 70 H Blood Type Blood Type Confirm O POSITIVE Antibody Screen BBK History Checked 01/11/19 01/11/19 01/11/19 05:30 05:30 05:30 WBC RBC Hgb Hct MCV MCH MCHC RDW Plt Count MPV Neut % (Auto) Lymph % (Auto) [place] % (Auto) Eos % (Auto) Baso % (Auto) Lymph # (Auto) [place] # (Auto) Eos # (Auto) Baso # (Auto) Absolute Neuts (auto) PT 14.3 H INR 1.27 APTT Sodium 139 Potassium 4.9 Chloride 108 H Carbon Dioxide 24 Anion Gap 11 BUN 16 Creatinine 1.0 Est GFR ( Amer) > 60 Est GFR (Non-Af Amer) 53 Random Glucose 86 Calcium 8.9 Total Bilirubin 0.7 AST 35 ALT 15 Alkaline Phosphatase 85 Troponin I 0.01 Total Protein 7.7 Albumin 3.8 Globulin 3.9 Albumin/Globulin Ratio 1.0 L Triglycerides Cholesterol LDL Cholesterol Direct HDL Cholesterol Blood Type Blood Type Confirm Antibody Screen BBK History Checked EKG/Cardiology Studies: Cardiology / EKG Studies 01/10/19 19:21 ELECTROCARDIOGRAM Stat Comment: Reason For Exam: cva Review of Systems - Review of Systems All systems: reviewed and no additional remarkable complaints except (as per HPI) Critical Care Progress Note - Extremities/Vascular Does the Patient have a Central Venous Catheter?: No Does the Patient need a Central Venous Catheter?: No - Prophylaxis DVT Prophylaxis DVT: SCDs Assessment/Plan - Assessment and Plan (Free Text) Assessment: Patient is a 88 year old with past medical history of CAD (x2 stents with last stent placed > 5 years ago) and HTN who [place] [facility] [place]. Patient admitted for Hemorrhagic Stroke likely 2/2 Uncontrolled HTN. She is being monitored in the ICU at this time. 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 - Repeat CT Head (01/11): no interval change; no expansion of hemorrhagic bleed. - CT Head (01/10): acute hemorrhage in the left frontal lobe measuring 3 cm. No ev idence of midline shift. - Neurology on consult (Dr. France) - Neurosurgery on consult (Dr. Victor) -- no intervention at this time given hemorrhage is non-expanding and there is no evidence of mass effect or elevated intra-cranial pressure Cardio: - Hx CAD (x2 stents) - Patient's T wave changes on EKG may be due to neurogenic origin. - EKG: NSR at 62 bpm. T4-T6 T wave inversions. - trops negative x2 - resumed home lipitor medication - Cardio on consult (Dr. Robledo) - As mentioned above, c/w strict BP control given hemorrhagic stroke Pulm: - no active issues - Maintain SaO2 > 92% - CXR: no consolidation or infiltrate GI: - Speech and swallow evaluated patient; recs appreciated - HHD/Dysphagia diet Heme: - Hgb stable - PT/PTT/INR stable at this time (INR 1.28) - Takes aspirin at home - hold anticoagulation at this time DVT ppx: scd Diet: HHD/Dysphasia diet Dispo: Continue to monitor patient in the ICU at this time. Case was discussed and reviewed with Attending Physician, Dr. Bonita Peterson <Bonita Peterson - Last Filed: 01/11/19 18:07> CCU Objective - Vital Signs / Intake & Output Vital Signs (Last 4 hours): Vital Signs Temp Pulse Resp BP Pulse Ox 01/11/19 17:20 77 26 H 100 01/11/19 17:10 72 13 99 01/11/19 17:00 74 15 100 01/11/19 16:50 92 H 53 H 100 01/11/19 16:40 64 26 H 100 01/11/19 16:30 64 21 99 01/11/19 16:20 68 24 100 01/11/19 16:10 70 99 01/11/19 16:00 98.7 F 73 22 99 01/11/19 15:53 72 30 H 186/75 H 99 01/11/19 15:52 73 22 190/93 H 99 01/11/19 15:51 72 31 H 186/92 H 100 01/11/19 15:50 74 24 183/83 H 99 01/11/19 15:49 72 14 187/77 H 100 01/11/19 15:48 76 25 H 165/124 H 01/11/19 15:10 62 21 01/11/19 15:00 69 25 H 01/11/19 14:50 69 26 H 01/11/19 14:40 67 23 99 01/11/19 14:30 66 26 H 99 01/11/19 14:20 69 28 H 100 01/11/19 14:10 67 23 100 Intake and Output (Last 8hrs): Intake & Output 01/11/19 01/11/19 01/11/19 06:59 14:59 22:59 Weight 54.885 kg Other: Voiding Method Bedpan - Medications Active Medications: Active Medications Generic Name Dose Route Start Last Admin Trade Name Freq PRN Reason Stop Dose Admin Atorvastatin Calcium 20 mg 01/11/19 17:00 Lipitor PO DIN BO Hydralazine HCl 10 mg 01/10/19 22:48 01/11/19 02:51 Apresoline IVP 10 mg Q4 PRN Administration Hypertension - Patient Studies Lab Studies: Lab Studies 01/11/19 01/11/19 01/11/19 Range/Units 05:30 05:30 05:30 WBC (4.5-11.0) 10^3/uL RBC (3.5-6.1) 10^6/uL Hgb (12.0-16.0) g/dL Hct (36.0-48.0) % MCV (80.0-105.0) fl MCH (25.0-35.0) pg MCHC (31.0-37.0) g/dl RDW (11.5-14.5) % Plt Count (120.0-450.0) 10^3/uL MPV (7.0-11.0) fl Neut % (Auto) (50.0-68.0) % Lymph % (Auto) (22.0-35.0) % [place] % (Auto) (1.0-6.0) % Eos % (Auto) (1.5-5.0) % Baso % (Auto) (0.0-3.0) % Lymph # (Auto) (1.2-3.4) [place] # (Auto) (0.1-0.6) Eos # (Auto) (0.0-0.7) Baso # (Auto) (0.0-2.0) K/mm3 Absolute Neuts (auto) (1.4-6.5) PT 14.3 H (9.4-12.5) SECONDS INR 1.27 APTT (26.9-38.3) Seconds Sodium 139 (132-148) mmol/L Potassium 4.9 (3.6-5.0) mmol/L Chloride 108 H (98-107) mmol/L Carbon Dioxide 24 (21-33) mmol/L Anion Gap 11 (10-20) BUN 16 (7-21) mg/dL Creatinine 1.0 (0.7-1.2) mg/dl Est GFR ( Amer) > 60 Est GFR (Non-Af Amer) 53 Random Glucose 86 (70-110) mg/dL Hemoglobin A1c (4.2-6.5) % Calcium 8.9 (8.4-10.5) mg/dL Total Bilirubin 0.7 (0.2-1.3) mg/dL AST 35 (14-36) U/L ALT 15 (7-56) U/L Alkaline Phosphatase 85 (38-126) U/L Troponin I 0.01 ng/mL Total Protein 7.7 (5.8-8.3) g/dL Albumin 3.8 (3.0-4.8) g/dL Globulin 3.9 gm/dL Albumin/Globulin Ratio 1.0 L (1.1-1.8) Triglycerides (35-160) mg/dL Cholesterol (130-200) mg/dL LDL Cholesterol Direct (0-129) mg/dL HDL Cholesterol (29-60) mg/dL Blood Type Blood Type Confirm Antibody Screen BBK History Checked 01/11/19 01/10/19 01/10/19 Range/Units 05:30 21:23 19:58 WBC 7.6 (4.5-11.0) 10^3/uL RBC 4.64 (3.5-6.1) 10^6/uL Hgb 12.4 (12.0-16.0) g/dL Hct 40.4 (36.0-48.0) % MCV 87.1 (80.0-105.0) fl MCH 26.7 (25.0-35.0) pg MCHC 30.7 L (31.0-37.0) g/dl RDW 14.9 H (11.5-14.5) % Plt Count 221 (120.0-450.0) 10^3/uL MPV 10.6 (7.0-11.0) fl Neut % (Auto) 75.4 H (50.0-68.0) % Lymph % (Auto) 15.3 L (22.0-35.0) % [place] % (Auto) 7.8 H (1.0-6.0) % Eos % (Auto) 1.2 L (1.5-5.0) % Baso % (Auto) 0.3 (0.0-3.0) % Lymph # (Auto) 1.2 (1.2-3.4) [place] # (Auto) 0.6 (0.1-0.6) Eos # (Auto) 0.1 (0.0-0.7) Baso # (Auto) 0.02 (0.0-2.0) K/mm3 Absolute Neuts (auto) 5.73 (1.4-6.5) PT (9.4-12.5) SECONDS INR APTT (26.9-38.3) Seconds Sodium (132-148) mmol/L Potassium (3.6-5.0) mmol/L Chloride (98-107) mmol/L Carbon Dioxide (21-33) mmol/L Anion Gap (10-20) BUN (7-21) mg/dL Creatinine (0.7-1.2) mg/dl Est GFR ( Amer) Est GFR (Non-Af Amer) Random Glucose (70-110) mg/dL Hemoglobin A1c 6.4 (4.2-6.5) % Calcium (8.4-10.5) mg/dL Total Bilirubin (0.2-1.3) mg/dL AST (14-36) U/L ALT (7-56) U/L Alkaline Phosphatase (38-126) U/L Troponin I ng/mL Total Protein (5.8-8.3) g/dL Albumin (3.0-4.8) g/dL Globulin gm/dL Albumin/Globulin Ratio (1.1-1.8) Triglycerides (35-160) mg/dL Cholesterol (130-200) mg/dL LDL Cholesterol Direct (0-129) mg/dL HDL Cholesterol (29-60) mg/dL Blood Type Blood Type Confirm O POSITIVE Antibody Screen BBK History Checked 01/10/19 01/10/19 01/10/19 Range/Units 19:58 19:58 19:58 WBC 6.5 (4.5-11.0) 10^3/uL RBC 4.35 (3.5-6.1) 10^6/uL Hgb 11.5 L (12.0-16.0) g/dL Hct 38.1 (36.0-48.0) % MCV 87.6 D (80.0-105.0) fl MCH 26.4 (25.0-35.0) pg MCHC 30.2 L (31.0-37.0) g/dl RDW 14.9 H (11.5-14.5) % Plt Count 206 (120.0-450.0) 10^3/uL MPV 10.6 (7.0-11.0) fl Neut % (Auto) 56.8 (50.0-68.0) % Lymph % (Auto) 26.7 (22.0-35.0) % [place] % (Auto) 13.2 H (1.0-6.0) % Eos % (Auto) 2.8 (1.5-5.0) % Baso % (Auto) 0.5 (0.0-3.0) % Lymph # (Auto) 1.7 (1.2-3.4) [place] # (Auto) 0.9 H (0.1-0.6) Eos # (Auto) 0.2 (0.0-0.7) Baso # (Auto) 0.03 (0.0-2.0) K/mm3 Absolute Neuts (auto) 3.67 (1.4-6.5) PT 14.2 H (9.4-12.5) SECONDS INR 1.28 APTT 33.5 (26.9-38.3) Seconds Sodium 139 (132-148) mmol/L Potassium 4.6 (3.6-5.0) mmol/L Chloride 107 (98-107) mmol/L Carbon Dioxide 26 (21-33) mmol/L Anion Gap 11 (10-20) BUN 18 (7-21) mg/dL Creatinine 1.0 (0.7-1.2) mg/dl Est GFR ( Amer) > 60 Est GFR (Non-Af Amer) 53 Random Glucose 88 (70-110) mg/dL Hemoglobin A1c (4.2-6.5) % Calcium 8.7 (8.4-10.5) mg/dL Total Bilirubin 0.6 (0.2-1.3) mg/dL AST 32 (14-36) U/L ALT 18 (7-56) U/L Alkaline Phosphatase 77 (38-126) U/L Troponin I < 0.01 ng/mL Total Protein 7.6 (5.8-8.3) g/dL Albumin 3.8 (3.0-4.8) g/dL Globulin 3.8 gm/dL Albumin/Globulin Ratio 1.0 L (1.1-1.8) Triglycerides 88 (35-160) mg/dL Cholesterol 140 (130-200) mg/dL LDL Cholesterol Direct 55 (0-129) mg/dL HDL Cholesterol 70 H (29-60) mg/dL Blood Type Blood Type Confirm Antibody Screen BBK History Checked 01/10/19 Range/Units 19:45 WBC (4.5-11.0) 10^3/uL RBC (3.5-6.1) 10^6/uL Hgb (12.0-16.0) g/dL Hct (36.0-48.0) % MCV (80.0-105.0) fl MCH (25.0-35.0) pg MCHC (31.0-37.0) g/dl RDW (11.5-14.5) % Plt Count (120.0-450.0) 10^3/uL MPV (7.0-11.0) fl Neut % (Auto) (50.0-68.0) % Lymph % (Auto) (22.0-35.0) % [place] % (Auto) (1.0-6.0) % Eos % (Auto) (1.5-5.0) % Baso % (Auto) (0.0-3.0) % Lymph # (Auto) (1.2-3.4) [place] # (Auto) (0.1-0.6) Eos # (Auto) (0.0-0.7) Baso # (Auto) (0.0-2.0) K/mm3 Absolute Neuts (auto) (1.4-6.5) PT (9.4-12.5) SECONDS INR APTT (26.9-38.3) Seconds Sodium (132-148) mmol/L Potassium (3.6-5.0) mmol/L Chloride (98-107) mmol/L Carbon Dioxide (21-33) mmol/L Anion Gap (10-20) BUN (7-21) mg/dL Creatinine (0.7-1.2) mg/dl Est GFR ( Amer) Est GFR (Non-Af Amer) Random Glucose (70-110) mg/dL Hemoglobin A1c (4.2-6.5) % Calcium (8.4-10.5) mg/dL Total Bilirubin (0.2-1.3) mg/dL AST (14-36) U/L ALT (7-56) U/L Alkaline Phosphatase (38-126) U/L Troponin I ng/mL Total Protein (5.8-8.3) g/dL Albumin (3.0-4.8) g/dL Globulin gm/dL Albumin/Globulin Ratio (1.1-1.8) Triglycerides (35-160) mg/dL Cholesterol (130-200) mg/dL LDL Cholesterol Direct (0-129) mg/dL HDL Cholesterol (29-60) mg/dL Blood Type O POSITIVE Blood Type Confirm Antibody Screen Negative BBK History Checked No verified bt Laboratory Results - last 24 hr 01/10/19 01/10/19 01/10/19 19:45 19:58 19:58 WBC 6.5 RBC 4.35 Hgb 11.5 L Hct 38.1 MCV 87.6 D MCH 26.4 MCHC 30.2 L RDW 14.9 H Plt Count 206 MPV 10.6 Neut % (Auto) 56.8 Lymph % (Auto) 26.7 [place] % (Auto) 13.2 H Eos % (Auto) 2.8 Baso % (Auto) 0.5 Lymph # (Auto) 1.7 [place] # (Auto) 0.9 H Eos # (Auto) 0.2 Baso # (Auto) 0.03 Absolute Neuts (auto) 3.67 PT 14.2 H INR 1.28 APTT 33.5 Sodium Potassium Chloride Carbon Dioxide Anion Gap BUN Creatinine Est GFR ( Amer) Est GFR (Non-Af Amer) Random Glucose Hemoglobin A1c Calcium Total Bilirubin AST ALT Alkaline Phosphatase Troponin I Total Protein Albumin Globulin Albumin/Globulin Ratio Triglycerides Cholesterol LDL Cholesterol Direct HDL Cholesterol Blood Type O POSITIVE Blood Type Confirm Antibody Screen Negative BBK History Checked No verified bt 01/10/19 01/10/19 01/10/19 19:58 19:58 21:23 WBC RBC Hgb Hct MCV MCH MCHC RDW Plt Count MPV Neut % (Auto) Lymph % (Auto) [place] % (Auto) Eos % (Auto) Baso % (Auto) Lymph # (Auto) [place] # (Auto) Eos # (Auto) Baso # (Auto) Absolute Neuts (auto) PT INR APTT Sodium 139 Potassium 4.6 Chloride 107 Carbon Dioxide 26 Anion Gap 11 BUN 18 Creatinine 1.0 Est GFR ( Amer) > 60 Est GFR (Non-Af Amer) 53 Random Glucose 88 Hemoglobin A1c 6.4 Calcium 8.7 Total Bilirubin 0.6 AST 32 ALT 18 Alkaline Phosphatase 77 Troponin I < 0.01 Total Protein 7.6 Albumin 3.8 Globulin 3.8 Albumin/Globulin Ratio 1.0 L Triglycerides 88 Cholesterol 140 LDL Cholesterol Direct 55 HDL Cholesterol 70 H Blood Type Blood Type Confirm O POSITIVE Antibody Screen BBK History Checked 01/11/19 01/11/19 01/11/19 05:30 05:30 05:30 WBC 7.6 RBC 4.64 Hgb 12.4 Hct 40.4 MCV 87.1 MCH 26.7 MCHC 30.7 L RDW 14.9 H Plt Count 221 MPV 10.6 Neut % (Auto) 75.4 H Lymph % (Auto) 15.3 L [place] % (Auto) 7.8 H Eos % (Auto) 1.2 L Baso % (Auto) 0.3 Lymph # (Auto) 1.2 [place] # (Auto) 0.6 Eos # (Auto) 0.1 Baso # (Auto) 0.02 Absolute Neuts (auto) 5.73 PT 14.3 H INR 1.27 APTT Sodium 139 Potassium 4.9 Chloride 108 H Carbon Dioxide 24 Anion Gap 11 BUN 16 Creatinine 1.0 Est GFR ( Amer) > 60 Est GFR (Non-Af Amer) 53 Random Glucose 86 Hemoglobin A1c Calcium 8.9 Total Bilirubin 0.7 AST 35 ALT 15 Alkaline Phosphatase 85 Troponin I Total Protein 7.7 Albumin 3.8 Globulin 3.9 Albumin/Globulin Ratio 1.0 L Triglycerides Cholesterol LDL Cholesterol Direct HDL Cholesterol Blood Type Blood Type Confirm Antibody Screen BBK History Checked 01/11/19 05:30 WBC RBC Hgb Hct MCV MCH MCHC RDW Plt Count MPV Neut % (Auto) Lymph % (Auto) [place] % (Auto) Eos % (Auto) Baso % (Auto) Lymph # (Auto) [place] # (Auto) Eos # (Auto) Baso # (Auto) Absolute Neuts (auto) PT INR APTT Sodium Potassium Chloride Carbon Dioxide Anion Gap BUN Creatinine Est GFR ( Amer) Est GFR (Non-Af Amer) Random Glucose Hemoglobin A1c Calcium Total Bilirubin AST ALT Alkaline Phosphatase Troponin I 0.01 Total Protein Albumin Globulin Albumin/Globulin Ratio Triglycerides Cholesterol LDL Cholesterol Direct HDL Cholesterol Blood Type Blood Type Confirm Antibody Screen BBK History Checked Radiology Impressions: Radiology Impressions Chest X-Ray 01/10/19 19:21 IMPRESSION: No active disease. No significant interval change compared to the prior examination(s). Head CT 01/10/19 19:21 IMPRESSION: There is an acute hemorrhage in the left frontal lobe measuring 3 cm in diameter. There is a mild amount of surrounding vasogenic edema. There effacement of the sulci. There is no midline shift. Head CT 01/11/19 07:00 IMPRESSION: Acute left frontal parenchymal hemorrhage. Findings unchanged compared to the prior study approximately 11 hr ago. Concordant results (preliminary interpretation) provided by [facility]. Procedure Completed: 06:59. Preliminary Report: Interpreted and electronically signed: 07:22. Final Interpretation: 08:37. Head/Neck CTA 01/11/19 10:16 IMPRESSION: 1. No evidence of endoluminal thrombus,occlusion or definite significant stenosis in the intracranial arteries. 2. No evidence of hemodynamically significant stenosis in the internal carotid arteries. 3. Patent bilateral vertebral arteries. 4. Enlarged multinodular thyroid gland. A dedicated thyroid ultrasound is recommended when the patient is clinically stable for complete evaluation of the thyroid gland. EKG/Cardiology Studies: Cardiology / EKG Studies 01/10/19 19:21 ELECTROCARDIOGRAM Stat Comment: Reason For Exam: cva Critical Care Progress Note - Nutrition Nutrition: Nutrition Category Date Time Status Heart Healthy Diet [DIET] Diets 01/11/19 Dinner Active Addendum Addendum: 01/11/19 18:06 ICU Attending Addendum Patient seen and examined. Case reviewed on round with housestaff. Agree with resident note above with the following additions/exceptions 88F hx of CAD and HTN admitted with expressive aphasia found to have cute hemorrhage in the left frontal lobe measuring 3 cm. thus far stable no change in neuro exam f/u repeat CT speech swallow eval PT OT f/u neuro recs no neurosurg intervention no role for steroids workup pituatiry mass as outpatient EKG changess noted, TNI neg, possibly neuro-cardiac phenomona when transferring should go to tele Rest of care as above in housestaff note Bonita Peterson MD Pulmonary Critical Care Attending
--- NOTE | 2019-01-11 08:43 | CT ---
Date of service: 01/11/2019 PROCEDURE: CT HEAD WITHOUT CONTRAST. HISTORY: Left frontal bleed COMPARISON: January 10, 2019. Study performed 20:01. 03/07/2017 CT head TECHNIQUE: Axial computed tomography images were obtained through the head/brain without intravenous contrast. Supplemental Coronal and Sagittal projections created and reviewed. Radiation dose: Total exam DLP = <inf_radiation_dlp> mGy-cm. This CT exam was performed using one or more of the following dose reduction techniques: Automated exposure control, adjustment of the mA and/or kV according to patient size, and/or use of iterative reconstruction technique. FINDINGS: HEMORRHAGE: Acute left frontal hemorrhage/hematoma 2.9 x 3 cm. Adjacent smaller areas of subarachnoid hemorrhage. BRAIN: Stable partially calcified mass in the sella 2.1 x 2.4 cm. VENTRICLES: No evidence of intraventricular hemorrhage. CALVARIUM: Unremarkable. PARANASAL SINUSES: Unremarkable as visualized. No significant inflammatory changes. MASTOID AIR CELLS: Unremarkable as visualized. No inflammatory changes. OTHER FINDINGS: None. IMPRESSION: Acute left frontal parenchymal hemorrhage. Findings unchanged compared to the prior study approximately 11 hr ago. Concordant results (preliminary interpretation) provided by RENAY PRIETO. Procedure Completed: 06:59. Preliminary Report: Interpreted and electronically signed: 07:22. Final Interpretation: 08:37.
--- NOTE | 2019-01-11 09:28 | CT ---
Date of service: 01/10/2019 PROCEDURE: CT HEAD WITHOUT CONTRAST. HISTORY: cva COMPARISON: None available. TECHNIQUE: Axial computed tomography images were obtained through the head/brain without intravenous contrast. Radiation dose: Total exam DLP = 986.42 mGy-cm. This CT exam was performed using one or more of the following dose reduction techniques: Automated exposure control, adjustment of the mA and/or kV according to patient size, and/or use of iterative reconstruction technique. FINDINGS: HEMORRHAGE: There is an acute hemorrhage in the left frontal lobe measuring 3 cm in diameter. There is a mild amount of surrounding vasogenic edema. There effacement of the sulci. There is no midline shift. BRAIN: There is no change in the size of the pituitary mass which measures 28 mm in height and 20 mm diameter. There is mild atrophy. VENTRICLES: Unremarkable. No hydrocephalus. CALVARIUM: Unremarkable. PARANASAL SINUSES: Unremarkable as visualized. No significant inflammatory changes. MASTOID AIR CELLS: Unremarkable as visualized. No inflammatory changes. OTHER FINDINGS: The report concurs with the preliminary [facility] report IMPRESSION: There is an acute hemorrhage in the left frontal lobe measuring 3 cm in diameter. There is a mild amount of surrounding vasogenic edema. There effacement of the sulci. There is no midline shift.
--- NOTE | 2019-01-11 09:51 | CARD ---
APPROVED REPORT Date of service: 01/10/2019 EKG Measurement Heart [id number] <Conclusion> Normal sinus rhythm with sinus arrhythmia Possible Left atrial enlargement Inferior infarct, age undetermined T wave abnormality, consider lateral ischemia Abnormal ECG
--- NOTE | 2019-01-11 10:17 | RAD ---
Date of service: 01/10/2019 HISTORY: Code Stroke COMPARISON: 03/07/2017. FINDINGS: LUNGS: No active pulmonary disease. PLEURA: No significant pleural effusion identified, no pneumothorax apparent. CARDIOVASCULAR: Atherosclerotic calcifications identified primarily aortic arch. No radiographic findings to suggest acute or significant cardiovascular disease. OSSEOUS STRUCTURES: No significant abnormalities. VISUALIZED UPPER ABDOMEN: Normal. OTHER FINDINGS: None. IMPRESSION: No active disease. No significant interval change compared to the prior examination(s).
--- NOTE | 2019-01-11 14:19 | PN ---
DATE: 01/11/2019 SUBJECTIVE: I saw her in the intensive care unit. She does not want to talk. She feels that she cannot say the words correctly. The daughter is with her. She is having a cerebral bleed. Consults for Neurology, Neurosurgery and Cardiology. She is on hydralazine 10 mg IV every 4 hours as needed. We are waiting for the blood pressure currently. PHYSICAL EXAMINATION: VITAL SIGNS: She has a 98.3 temperature, 71 pulse, 155/59 blood pressure, 28 respiratory rate, 97% O2 sat. HEENT: Head is atraumatic, normocephalic. HEART: Regular rate. LUNGS: Decreased breath sounds. ABDOMEN: Soft. EXTREMITIES: No edema. LABORATORY DATA: She has a 7.6 white count, 12.4 hemoglobin, 40.4 hematocrit with 221 platelets. INR is 1.27. She has a 139 sodium, potassium 4.9, BUN 16, creatinine 1, GFR is 53, sugar is 86. Calcium is 8.9, total bilirubin is 0.78, AST is 35, ALT is 59, alk phos 85. Total protein 7.7. Troponin I is less than 0.1 x2, albumin is 3.8, HDL 70. She also has cerebral bleed. ASSESSMENT AND PLAN: Multiple consults. Watch her blood pressure. She will be on oxygen. Physical therapy is ordered, speech is ordered. Awaiting evaluation from consults. Richard Byers DO MTDD
--- NOTE | 2019-01-11 14:33 | CP.PCM.APN ---
Subjective - Date & Time of Evaluation Date of Evaluation: 01/11/19 Time of Evaluation: 12:15 - Subjective Subjective: pt seen and examined at bedside , pt with family present. pt unable to verbalize response but appears in NAD lying in bed and MAY. remains aphasic Review of Systems - Review of Systems All systems: reviewed and no additional remarkable complaints except - Constitutional Constitutional: As Per HPI Objective - Vital Signs/Intake and Output Vital Signs (last 24 hours): Temp Pulse Resp BP Pulse Ox 98.3 F 69 21 139/79 100 01/11/19 00:05 01/11/19 11:40 01/11/19 11:40 01/11/19 10:41 01/11/19 11:40 - Medications Medications: Current Medications Atorvastatin Calcium (Lipitor) 20 mg PO DIN BO Hydralazine HCl (Apresoline) 10 mg IVP Q4 PRN PRN Reason: Hypertension Last Admin: 01/11/19 02:51 Dose: 10 mg - Labs Labs: 01/11/19 05:30 01/11/19 05:30 PT 14.3 SECONDS (9.4-12.5) H 01/11/19 05:30 INR 1.27 01/11/19 05:30 APTT 33.5 Seconds (26.9-38.3) 01/10/19 19:58 - Constitutional Appears: No Acute Distress - Eye Exam Eye Exam: Normal appearance, PERRL - ENT Exam ENT Exam: Normal Exam - Neck Exam Neck Exam: Normal Inspection - Respiratory Exam Respiratory Exam: Decreased Breath Sounds, NORMAL BREATHING PATTERN - Cardiovascular Exam Cardiovascular Exam: +S1, +S2 - GI/Abdominal Exam GI & Abdominal Exam: Soft, Normal Bowel Sounds - Neurological Exam Neurological Exam: Awake Additional comments: moves all ext - Skin Skin Exam: Dry, Intact Assessment and Plan - Assessment and Plan (Free Text) Plan: ITS Impressions Chest X-Ray 01/10/19 19:21 IMPRESSION: No active disease. No significant interval change compared to the prior examination(s). Head CT 01/10/19 19:21 IMPRESSION: There is an acute hemorrhage in the left frontal lobe measuring 3 cm in diameter. There is a mild amount of surrounding vasogenic edema. There effacement of the sulci. There is no midline shift. Head CT 01/11/19 07:00 IMPRESSION: Acute left frontal parenchymal hemorrhage. Findings unchanged compared to the prior study approximately 11 hr ago. Concordant results (preliminary interpretation) provided by RENAY PRIETO. Procedure Completed: 06:59. Preliminary Report: Interpreted and electronically signed: 07:22. Final Interpretation: 08:37. a/P 88 yr old AA female with pmh sig for htn, cad s/p stents, pvd and HLd who presented to the ED with family for acute aphasia. pt was found to have acute hemorrhage on Ct scan: an acute hemorrhage in the left frontal lobe measuring 3 cm in diameter. There is a mild amount of surrounding vasogenic edema. patient is admitted for further eval and treatment with neurologist and bun machine operator consultation and monitoring in the CCU. Physical therpay and occupational therapy has been ordered. will follow neuro and cardio recs. pt with CTA head and neck pending. discuss plan of care with primary team. BPCI/TIC - BPCIA/TIC Educated pt/family on BPCIA/CIR/Med to Bed Programs: N/A Flyers given, including [facility] Beneficiary letter: N/A Pt/family verbalized understanding & agreed to program: N/A
--- NOTE | 2019-01-11 15:11 | HP ---
DATE OF EXAM: 01/11/2019 HISTORY OF PRESENT ILLNESS: I have seen Estella Mckeon in the emergency room yesterday, 01/10; I am not sure why my dictation did not come through here 01/11 early in the morning, looking for the dictation; if not back, I will do another H and P. This is from yesterday. She is an 88-year-old -[place] female who I know very well who comes in about 6 to 7 hours of change in mentation, unable to speak well. She says yes and no and that is it. They finally got her to the emergency room. She is an 88-year-old -[place] female with past medical history of hypertension, CAD, cardiac stents, peripheral vascular disease, high cholesterol. She had hysterectomy in the past. She was looking at this, maybe a little bit upset. She is aphasic, I cannot get her to say anything but yes and no. She seems frustrated. She had a syncopal episode about 2 years ago. She had left eye surgery, right eye was not ready yet for cataracts. She has cellulitis and redness closed wound on the second toe. She has coronary stents. She had hysterectomy. She had cataracts. FAMILY HISTORY: Unknown family history. SOCIAL HISTORY: No smoker. No drinking. No drugs. ALLERGIES: NO KNOWN DRUG ALLERGIES. REVIEW OF SYSTEMS: She is aphasic, very difficult to get a review of systems. PHYSICAL EXAMINATION: VITAL SIGNS: Pulse 60, 18 respiratory rate, 165/84 blood pressure and 99% O2 sat. GENERAL: She is alert, well appearing, looks frustrated, unable to give responses correctly on verbal commands. She is aphasic with speech changes. HEENT: Head is atraumatic and normocephalic. Extraocular muscles intact. Pupils equally reactive to light and accommodation. Throat is moist. NECK: Supple. HEART: Regular rate. LUNGS: Decreased breath sounds, but clear to auscultation. ABDOMEN: Soft and nontender. Positive bowel sounds. EXTREMITIES: No edema. She has aphasic speech, only says yes and no. SKIN: Warm and dry. No apparent rashes. LYMPHATICS: Thyroid midline. No palpable appreciable lymphadenopathy. LABORATORY DATA: Multiple tests were done. She had a CAT scan of her head which showed approximately 2.8 x 3.1 acute intraparenchymal hemorrhage, left frontal lobe, subarachnoid hemorrhage is noted, also left frontal cortical sulci, large expansile pituitary mass. No change. Mild chronic microvascular disease, age changes. She is having a cerebral bleed. EKG showed normal sinus rhythm at 62, sinus arrhythmia. Chest x-ray shows no acute distress. She has a sodium 139, potassium 4.6, BUN 18, creatinine 1, GFR is 53, sugar is 88, calcium is 8.7, total bili is 0.6, AST is 32, ALT is 18, alk phos 77, troponin I less than 0.01, total protein 7.6, albumin 3.8, triglycerides 88, cholesterol 140 and INR is 1.28. She has a 6.5 white count, 11.5 hemoglobin, 38.1 hematocrit, and 206 platelets. No history of trauma to the head. Blood pressure is 155/59. Awaiting for swallow evaluation and consults with Neurology and Cardiology. She was given hydralazine. We will check her labs this morning. Physical therapy and swallow evaluation ordered. She has a neurosurgeon evaluation. aphasia and cerebral bleed. Richard Byers DO MTDAdelaide
[2019-01-11] MEDS ORDERED: Iohexol 350 MG/100 ML VIAL ONE (15:27)
--- NOTE | 2019-01-11 17:34 | CT ---
Date of service: 01/11/2019 PROCEDURE: CTA HEAD AND NECK WITH CONTRAST HISTORY: acute left frotnal hemorrhage COMPARISON: None available. TECHNIQUE: Initial noncontrast head CT was performed. Subsequently, CT angiogram of the head and neck were performed after the intravenous administration of 80 mL of Omnipaque 350. Contiguous 1.5mm thick images were obtained in the axial plane of the neck. 2-D coronal and sagittal MPR images were obtained. Imaging postprocessing was performed with 3-D images also obtained. A delayed contrast head CT was also obtained. This CT exam was performed using one or more of the following dose reduction techniques: Automated exposure control, adjustment of the mA and/or kV according to patient size, and/or use of iterative reconstruction technique. Contrast dose: 100 mL Omnipaque 350 Radiation dose: Total exam DLP = 459.60 mGy-cm. FINDINGS: HEAD: There are dense atherosclerotic calcifications in the cavernous carotid segments. Right: The intracranial internal carotid artery, and anterior and middle cerebral arteries are widely patent. Left: The intracranial internal carotid artery, and anterior and middle cerebral arteries are widely patent. Posterior circulation: The visualized intracranial vertebral arteries, basilar artery and posterior cerebral arteries are widely patent. There is no endoluminal filling defect to suggest thrombus. There is no intracranial saccular aneurysm. NECK: There is a three vessel aortic arch. There is no stenosis at the origins of the great vessels at the level of the aortic arch. There are atherosclerotic calcifications at the origin of the great vessels and dense atherosclerotic calcifications in bilateral carotid bulbs and proximal internal carotid arteries. Right Carotid: On the right, the common carotid, internal carotid and external carotid arteries are widely patent. There is no hemodynamically significant stenosis in the internal carotid artery by NASCET criteria. Left Carotid: On the left, the common carotid, internal carotid and external carotid arteries are widely patent. There is no hemodynamically significant stenosis in the internal carotid artery by NASCET criteria. The vertebral arteries are widely patent. The visualized soft tissues of the neck are normal. The lung apices are clear. There is an enlarged multinodular thyroid gland. IMPRESSION: 1. No evidence of endoluminal thrombus,occlusion or definite significant stenosis in the intracranial arteries. 2. No evidence of hemodynamically significant stenosis in the internal carotid arteries. 3. Patent bilateral vertebral arteries. 4. Enlarged multinodular thyroid gland. A dedicated thyroid ultrasound is recommended when the patient is clinically stable for complete evaluation of the thyroid gland.
--- NOTE | 2019-01-11 20:07 | CP.PCM.PN ---
Subjective - Date & Time of Evaluation Date of Evaluation: 01/11/19 Time of Evaluation: 20:06 - Subjective Subjective: It was requested co-sign troponin order. Also patient had episode of eye rolling movement and clenching of jaws. Had no other complaints. Medical record was reviewed. This 88 year old woman was admitted with altered mental status, expressive aphasia. Has PMH of hypertension, not having antihypertensive medications for over a year, CAD,cardiac stents,PVD ,HLD, hystrectomy. Objective - Vital Signs/Intake and Output Vital Signs (last 24 hours): Temp Pulse Resp BP Pulse Ox 98.7 F 77 26 H 186/75 H 100 01/11/19 16:00 01/11/19 17:20 01/11/19 17:20 01/11/19 15:53 01/11/19 17:20 Intake and Output: 01/11/19 01/12/19 18:59 06:59 Intake Total 240 Balance 240 - Medications Medications: Current Medications Atorvastatin Calcium (Lipitor) 20 mg PO DIN BO Last Admin: 01/11/19 18:45 Dose: Not Given Hydralazine HCl (Apresoline) 10 mg IVP Q4 PRN PRN Reason: Hypertension Last Admin: 01/11/19 02:51 Dose: 10 mg - Labs Labs: 01/11/19 05:30 01/11/19 05:30 PT 14.3 SECONDS (9.4-12.5) H 01/11/19 05:30 INR 1.27 01/11/19 05:30 APTT 33.5 Seconds (26.9-38.3) 01/10/19 19:58 - Constitutional Appears: Well, No Acute Distress - Head Exam Head Exam: ATRAUMATIC, NORMAL INSPECTION, NORMOCEPHALIC - Eye Exam Eye Exam: Normal appearance - ENT Exam ENT Exam: Normal External Ear Exam - Neck Exam Neck Exam: Normal Inspection - Respiratory Exam Respiratory Exam: NORMAL BREATHING PATTERN - Cardiovascular Exam Cardiovascular Exam: absent: JVD - GI/Abdominal Exam GI & Abdominal Exam: Distended - Rectal Exam Rectal Exam: Deferred - Exam Additional comments: Deferred. - Extremities Exam Extremities Exam: Normal Inspection - Back Exam Back Exam: NORMAL INSPECTION - Neurological Exam Neurological Exam: Altered, Awake Additional comments: Expressive aphasia. No eye rolling movement or clenching of jaws observed - Psychiatric Exam Psychiatric exam: Depressed - Skin Skin Exam: Normal Color Assessment and Plan - Assessment and Plan (Free Text) Assessment: Seizure. Subdural hematoma. Hypertension. CAD. S/P coronary stent placement. HLD. Plan: Troponin order cosigned. Spoke T .Suggested Kepra , CT of head without contrast. Observation. Continue present management.
--- NOTE | 2019-01-11 20:56 | CON ---
DATE: 01/11/2019 HISTORY OF PRESENT ILLNESS: This is an 88-year-old black female with history of coronary artery disease with stent placement, hypertension and admitted with acute onset of expressive aphasia. She abruptly developed these problems with speech. There was no loss of consciousness. No overt weakness or other complaint. ALLERGIES: SHE HAS NO ALLERGIES. PAST MEDICAL HISTORY: As above. SOCIAL HISTORY: She smoked many years ago, denies alcohol or drugs at this point. She is unable to answer questions, her daughter was at the bedside and I discussed the case with her. 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 ASSESSMENT AND PLAN: According to the daughter, she never received any treatment for this, however, she is uncertain whether that statement is correct, the daughter herself never knew of this pathology. It is possible that she is being treated elsewhere for the pituitary mass and the daughter is going to investigate this. Currently, the patient is awake and alert. Pupils are equal, extraocular movements are full, the face is generally symmetric. She does have an expressive aphasia, however, does follow commands fairly readily. She has no drift, good strength throughout and reflexes are all 2/4, could not assess any focal sensory deficits. At this point, I instructed the residents that she would benefit from after identifying whether or not she is being followed elsewhere for the pituitary mass an MRI with contrast may be indicated. The spherical shape of the hematoma does suggest the possibility of an underlying mass and this is not a hemorrhage. A full evaluation of that fact would require some of the hemorrhage to resolve; however, if she does have metastatic disease and has small metastases elsewhere in the brain, an MRI with contrast may elucidate that. It will also give a better diagnostic appearance of the pituitary mass. Lastly, I explained to the residents that she would need a complete endocrine workup and eventually if she has not had one, a formal set of visual field. With regard to the hemorrhage, unless there is some underlying mass that is identified no further intervention is required. I also suggested they start her on anticonvulsants. Christopher Deng MD
--- NOTE | 2019-01-11 21:07 | CON ---
DATE: 01/11/2019 HISTORY OF PRESENT ILLNESS: This is an 88-year-old black female, with a past medical history of hypertension; coronary artery disease, status post cardiac stent placement with peripheral vascular disease and dyslipidemia, who came to the hospital with the family, aphasic and was otherwise alert and awake. CAT scan of the head was done, which showed acute parenchymal hemorrhage in the left frontal lobe. Neurosurgeon, Dr. Victor is aware of it. A repeat CAT scan showed the same. Family is at bedside. I was called to evaluate the patient. PAST MEDICAL HISTORY: As above. SOCIAL HISTORY: Does not smoke; does not drink. REVIEW OF SYSTEMS: A 10-point review of systems is negative except aphasic. PHYSICAL EXAMINATION: NEUROLOGIC: The patient is awake, confused, does not know at home or in hospital. Does not follow simple commands. Cranial nerves II through XII were tested. Pupils reactive. EOM intact. Visual kong full. No facial asymmetry. Tongue midline. Motor; moves all the extremities spontaneously. Deep tendon reflexes 1+. Both plantars are downgoing. Sensory appears intact. Cerebellar gait deferred. IMPRESSION AND PLAN: An 88-year-old black female with past medical history of coronary artery disease, hypertension and presented with aphasia, found to have 2.8 x 3.1 cm intraparenchymal hemorrhage in the left frontal lobe. Neurosurgery was consulted, requested repeat CAT scan of the head and control the blood pressure. Workup in progress. Continue present management. We will follow up. Ashwin France MD
[2019-01-11] MEDS ORDERED: levETIRAcetam 1000mg/100ml NS 100 ML IV STA (23:44)
--- NOTE | 2019-01-12 00:43 | CP.PCM.PN ---
Subjective - Date & Time of Evaluation Date of Evaluation: 01/12/19 Time of Evaluation: 00:42 - Subjective Subjective: Patient was seen at bedside . She had an episode of eyes fluttering and jaws clenching. No other complaints. Medical record was reviewed. 88 year old woman was admitted with altered mental status, expressive aphasia. PMH of CAD, hypertension, not having antihypertensive medications for over a year, cardiac stents,PVD ,HLD, hystrectomy. Objective - Vital Signs/Intake and Output Vital Signs (last 24 hours): Temp Pulse Resp BP Pulse Ox 98.7 F 69 26 H 163/88 H 100 01/11/19 16:00 01/11/19 20:45 01/11/19 17:20 01/11/19 20:45 01/11/19 17:20 Intake and Output: 01/11/19 01/12/19 18:59 06:59 Intake Total 240 Balance 240 - Medications Medications: Current Medications Atorvastatin Calcium (Lipitor) 20 mg PO DIN [facility] Last Admin: 01/11/19 18:45 Dose: Not Given Hydralazine HCl (Apresoline) 10 mg IVP Q4 PRN PRN Reason: Hypertension Last Admin: 01/11/19 20:45 Dose: 10 mg Levetiracetam (Keppra 500mg Ivpb) 500 mg in 100 mls @ 400 mls/hr IV Q12 BO Stop: 01/19/19 10:01 - Labs Labs: 01/11/19 05:30 01/11/19 05:30 PT 14.3 SECONDS (9.4-12.5) H 01/11/19 05:30 INR 1.27 01/11/19 05:30 APTT 33.5 Seconds (26.9-38.3) 01/10/19 19:58 - Constitutional Appears: Well, No Acute Distress - Head Exam Head Exam: ATRAUMATIC, NORMAL INSPECTION, NORMOCEPHALIC - Eye Exam Eye Exam: Normal appearance - ENT Exam ENT Exam: Normal External Ear Exam - Neck Exam Neck Exam: Normal Inspection - Respiratory Exam Respiratory Exam: NORMAL BREATHING PATTERN - Cardiovascular Exam Cardiovascular Exam: absent: JVD - GI/Abdominal Exam GI & Abdominal Exam: Firm. absent: Distended - Rectal Exam Rectal Exam: Deferred - Exam Additional comments: Deferred. - Extremities Exam Extremities Exam: Normal Inspection - Back Exam Back Exam: NORMAL INSPECTION - Neurological Exam Neurological Exam: Awake Additional comments: Expressive aphasia present. - Psychiatric Exam Psychiatric exam: Normal Mood - Skin Skin Exam: Normal Color Assessment and Plan - Assessment and Plan (Free Text) Assessment: Seizure. Subdural hematoma. HTN. CAD HLD. S/P coronary stent placement
[2019-01-12 06:52] LABS: BASO # 0.01 K/mm3 (0.0-2.0); BASO % 0.1 % (0.0-3.0); EOS % 0.2 % (1.5-5.0); HEMOGLOBIN 12.8 g/dL (12.0-16.0); LYMPH # 1.2 (1.2-3.4); LYMPH % 12.3 % (22.0-35.0); MEAN CELL VOLUME 86.2 fl (80.0-105.0); MEAN CORPUSCULAR HEMOGLOBIN 26.7 pg (25.0-35.0); MEAN PLATELET VOLUME 10.8 fl (7.0-11.0); MONO # 1.3 (0.1-0.6); MONO % 12.7 % (1.0-6.0); RBC 4.79 10^6/uL (3.5-6.1); RED CELL DISTRIBUTION WIDTH 15.2 % (11.5-14.5); WHITE BLOOD COUNT 9.9 10^3/uL (4.5-11.0)
[2019-01-12 07:06] LABS: INR 1.26; PROTHROMBIN TIME 14.2 SECONDS (9.4-12.5)
[2019-01-12 07:34] LABS: ALBUMIN 3.9 g/dL (3.0-4.8); CALCIUM 8.9 mg/dL (8.4-10.5)
--- NOTE | 2019-01-12 08:42 | CT ---
Date of service: 01/12/2019 PROCEDURE: CT HEAD WITHOUT CONTRAST. HISTORY: seizure? COMPARISON: CT 01/11/2019 TECHNIQUE: Axial computed tomography images were obtained through the head/brain without intravenous contrast. Radiation dose: Total exam DLP = 955.97 mGy-cm. This CT exam was performed using one or more of the following dose reduction techniques: Automated exposure control, adjustment of the mA and/or kV according to patient size, and/or use of iterative reconstruction technique. FINDINGS: HEMORRHAGE: There is an acute 3 cm hematoma in the left frontal lobe. There is minimal surrounding edema. A small amount of adjacent subarachnoid blood is also seen. The findings are unchanged BRAIN: There is a large partially calcified pituitary mass measuring 28 mm in height and 22 mm in diameter. No atrophy or chronic microvascular ischemic changes. VENTRICLES: Unremarkable. No hydrocephalus. CALVARIUM: Unremarkable. PARANASAL SINUSES: Unremarkable as visualized. No significant inflammatory changes. MASTOID AIR CELLS: Unremarkable as visualized. No inflammatory changes. OTHER FINDINGS: None. IMPRESSION: There is an acute 3 cm hematoma in the left frontal lobe. There is minimal surrounding edema. A small amount of adjacent subarachnoid blood is also seen. The findings are unchanged
--- NOTE | 2019-01-12 09:33 | CON ---
DATE OF CONSULTATION: 01/12/2019 CARDIOLOGY CONSULTATION HISTORY: The patient is an 88-year-old woman, who presents with aphasia consistent with a CVA. There is a question of small hematoma along the midline above the pituitary gland. PAST MEDICAL HISTORY: The patient's past medical history includes a history of PTCA and stent remotely. The family is not aware when the angioplasty of the coronaries were done There are no records in [place]. The patient's past medical history also includes a history of hypertension, hypercholesterolemia. There is no anginal acute coronary syndrome noted. Social history and review of systems are not available. PHYSICAL EXAMINATION: VITAL SIGNS: Blood pressure 128/68, heart rate is in the 80s. NECK: Negative JVD. LUNGS: Without rales. HEART: Reveals a 2/6 systolic ejection murmur. EXTREMITIES: Without edema. EKG shows no acute changes. LABORATORY DATA: Hemoglobin is 12.8. Chemistries, BUN and creatinine are unremarkable. Troponin is negative x1. IMPRESSION: 1. New cerebrovascular accident. 2. Questionable pituitary hematoma. 3. Pituitary adenoma. 4. Hypertension. 5. Hypercholesterolemia. 6. Stable angina. PLAN: Given these findings, the patient is hemodynamically stable. We will obtain an echocardiogram to evaluate LV function. Lyndon Robledo MD
[2019-01-12] MEDS: levETIRAcetam 500mg IVPB 500 MG/100 ML BAG IV SCH ×2 (10:04→21:20)
[2019-01-12] MEDS: Aritificial Tears (15ml) OU SCH ×3 (10:05→18:04)
[2019-01-12] MEDS: Nitroglycerin 0.4 mg/hr Top Patch TD SCH (10:05)
--- NOTE | 2019-01-12 10:19 | CP.PCM.PCO ---
Physician Communication Note - Physician Communication Note Physician Communication Note: sz sec left frontal hemorrhage. rec keppra 500 po bid. No antiplatelets.
--- NOTE | 2019-01-12 11:02 | PN ---
DATE: 01/12/2019 SUBJECTIVE: The daughter is sitting next to her this morning in bed. She is in intensive care unit. She had a cerebral bleed associated with pituitary mass. She is on hydralazine. She is on Keppra IV, Lipitor, and nitroglycerine. She is comfortable. She is saying few extra words, which she did yesterday, the daughter said which is great. She need OT and PT. PHYSICAL EXAMINATION VITAL SIGNS: She has a 98.7 temperature, 86 pulse, 121/96 blood pressure, it came down to 145/82 blood pressure, 21 respiratory rate and 99% of O2 sat on oxygen. HEENT: Head is atraumatic and normocephalic. She is smiling. HEART: Regular rate. LUNGS: Decrease breath sounds. ABDOMEN: Soft. EXTREMITIES: No edema. LABORATORY DATA: She has a 139 sodium, potassium 4.8, BUN 21, creatinine 1.2, GFR is 43, sugar is 87, calcium is 8.9, total bili is 0.9, AST is 30, ALT is 22, alk phos is 86 and total protein 7.8. White count is 9.9, hemoglobin 12.8, hematocrit 41.3 and platelets are 221. INR is 1.26. ASSESSMENT AND PLAN: She is being seen by Neurology and Neurosurgery. There is a Cardiology consult. physical therapy, out of bed to chair. I will put her back on some of her medications. Hopefully, she will improve. She might need physical therapy and occupational therapy, [facility]. Rcihard Byers DO MTDD
--- NOTE | 2019-01-12 19:11 | PN ---
DATE: 01/12/2019 CHIEF COMPLAINT: Status post left frontal lobe intracranial hemorrhage. SUBJECTIVE: The patient is seen and examined at bedside. The patient is lethargic, has some Broca's type aphasia from the left frontal hemorrhage. She had a new onset seizure overnight, but she is now placed on Keppra 500 IV every 12 hours. She has some mild subtle right-sided weakness, but otherwise withdraws to localized noxious stimulus. Case was discussed with daughter at bedside. Repeat CAT scan showed an acute 3 cm hematoma in the left frontal lobe with minimal surrounding edema. A small change of the adjacent subarachnoid hemorrhage is also seen. Findings are unchanged from the previous scan. PAST MEDICAL HISTORY: History of pituitary adenoma, hypertension, hypercholesterolemia. REVIEW OF SYSTEMS: 14-point review of systems is negative except as per HPI. ALLERGIES: NO KNOWN DRUG ALLERGIES. MEDICATIONS: Reviewed by nurse's reconciliation sheet. SOCIAL HISTORY: No illicit drugs, smoking, or EtOH abuse. LABORATORY DATA: Sodium is 139, potassium 4.8, chloride of 107, carbon dioxide 23, BUN of 21, creatinine of 1.2, random glucose of 87. PHYSICAL EXAMINATION: GENERAL: The patient is lethargic, in no acute distress. VITAL SIGNS: Temperature afebrile, pulse rate of 71, blood pressure 126/65, respiratory rate of 18, oxygen saturation 90% on room air. HEENT: Atraumatic, normocephalic. PERRLA. Extraocular muscles are intact. NECK: Supple. No JVD. No adenopathy. LUNGS: Clear to auscultation. No adventitious sounds. HEART: S1 and S2. Normal rate and rhythm. No murmurs, rubs, or gallops. ABDOMEN: Soft, nontender, nondistended. Bowel sounds present. EXTREMITIES: No clubbing, no cyanosis. Peripheral pulses 2+ felt bilaterally. NEUROLOGIC: The patient is lethargic. No acute distress. Has Broca's type aphasia from left intracranial hemorrhage. Cranial nerves II through XII intact with a mild right facial droop. Motor exam: Mild right sided weakness when compared to the left. Toes are downgoing bilaterally. Sensory: Light touch is intact bilaterally. Withdraws to localized noxious stimulus. DTRs are 2+ throughout. Coordination and gait deferred for now. ASSESSMENT AND PLAN: Acute 3 cm hematoma left frontal lobe hemorrhage secondary to underlying uncontrolled hypertension. Adjacent subarachnoid hemorrhage. CTA angiogram of the head showed no evidence of any aneurysm. She has a pituitary adenoma. She had new-onset seizure secondary to acute left frontal intracranial hemorrhage and her Broca's type aphasia is secondary to left frontal intracranial hemorrhage as well. RECOMMENDATIONS: At this time we recommend: 1. Keppra 500 mg IV every 12 hours for seizure prophylaxis. 2. Keep her systolic blood pressure 120-130 and diastolic 70-80. 3. Will avoid any antiplatelet medications for the next three weeks in the onset of bleed. 4. PT/OT and speech therapy, and acute rehab. Jasen France MD
--- NOTE | 2019-01-13 03:11 | CON ---
DATE: 01/12/2019 ENDOCRINOLOGY CONSULT HISTORY OF PRESENT ILLNESS: Patient was seen in CCU 129, room 5. This is an 88-year-old female with known history of significant cardiac vasculopathy, and hypertension, presenting with sudden onset of expressive aphasia and generalized body weakness and has been evaluated also for intracranial hemorrhage and is being referred now for Endocrinology evaluation because of incidental finding of a pituitary mass/lesion as noted thereof. PAST MEDICAL HISTORY: As mentioned above. History of longstanding hypertension, controlled by antihypertensive medication; history of coronary artery disease, significant cardiac vasculopathy with previous coronary stent placement; and dyslipidemia as mentioned. FAMILY HISTORY: Positive for hypertension and heart disease. SOCIAL HISTORY: Patient has supportive family. No known substance use. REVIEW OF SYSTEMS: Not possible at this time because of the patient's expressive aphasia, but the chart has been reviewed in detail under organizational development consultant's notes and nurse's notes and have been reviewed accordingly. PHYSICAL EXAMINATION: GENERAL: An 88-year-old female in no apparent distress. VITAL SIGNS: Blood pressure 150/90, pulse of 100 beats per minute and regular, temperature 98, respirations 20, height is 5 feet, weight is 121 pounds. HEENT: Head normocephalic. Eyes anicteric with pink conjunctivae. Funduscopy not possible at this time. Ears, nose, and throat otherwise normal. NECK: Supple. Thyroid gland is normal sized. No carotid bruits or any cervical adenopathy. CARDIOPULMONARY: Some adynamic precordium. S1, S2 are rapid and regular. LUNGS: Clear to auscultation. ABDOMEN: Flat and soft with positive bowel sounds. EXTREMITIES: No peripheral edema. Pulses are 2+ bilaterally. LABORATORY DATA: Chemistries showed a BUN of 21, sodium 139, potassium 4.8, chloride 107, CO2 of 23, glucose 87, and creatinine 1.2. Her glucose levels are raised from 82 to 89 mg/dL. CAT scan of the head shows acute 3 cm hematoma in the left frontal lobe with surrounding edema and subarachnoid bleed also was noted. There is also a large partially calcified pituitary mass/lesion measuring 28 mm x 22 mm in diameter with no overt atrophic or chronic microvascular changes. ASSESSMENT: This is an 88-year-old female with significant history of cardiac vasculopathy with coronary artery disease, dyslipidemia with underlying hypertension, presenting here with sudden expressive aphasia and concomitant acute cerebrovascular accident and is now being referred for endocrine evaluation because of incidental finding of pituitary mass/lesion as noted. We have to exclude also concomitant pituitary apoplexy which will evolve into a pituitary hemorrhage and subsequent calcification thereof. However, this has happened overnight and patient with a long time presence of pituitary mass/lesion of the right as noted. The possibility of underlying pituitary adenomas have to be excluded at this time, but it is very difficult to delineate by CAT scan. Would definitely recommend an MRI of the pituitary area. PLAN OF MANAGEMENT: We will obtain a comprehensive hormone profile to assess with hormonal status as to what we are dealing with panhypopituitarism versus a nonfunctioning pituitary mass/lesion versus a prolactin secreting macroadenoma resulting in sudden hemorrhage, pituitary apoplexy thereof. We will obtain a baseline serum cortisol and ACTH level with TSH and total T4 value as ordered. We will also obtain a prolactin level to determine whether we are dealing with the functioning of pituitary adenoma. We would highly recommend MRI of the brain with emphasis on pituitary area and would clearly need an MRI with contrast or with gadolinium to enhance the pituitary area accordingly. We will refer with Neurology evaluation also at this time. We will follow and advise accordingly. June Heck MD
--- NOTE | 2019-01-13 06:13 | CP.PCM.PN ---
Subjective - Date & Time of Evaluation Date of Evaluation: 01/13/19 Time of Evaluation: 06:11 - Subjective Subjective: Patient seen at bed side as she had eyes fluttering/rolling , jaws clenching x 2 ,1 min each. This 88 year old woman was admitted with altered mental status, expressive aphasia. PMH of This 88 year old woman was admitted with altered mental status, expressive aphasia. Objective - Vital Signs/Intake and Output Vital Signs (last 24 hours): Temp Pulse Resp BP Pulse Ox 98.6 F 70 28 H 116/54 L 98 01/12/19 16:00 01/13/19 02:10 01/13/19 02:10 01/13/19 00:01 01/13/19 02:10 Intake and Output: 01/12/19 01/13/19 18:59 06:59 Intake Total 500 Output Total 400 Balance 100 - Medications Medications: Current Medications Artificial Tears (Artificial Tears) 0 ml OU TID [facility] Last Admin: 01/12/19 18:04 Dose: 1 drop Atorvastatin Calcium (Lipitor) 20 mg PO DIN [facility] Last Admin: 01/12/19 18:05 Dose: 20 mg Hydralazine HCl (Apresoline) 10 mg IVP Q4 PRN PRN Reason: Hypertension Last Admin: 01/12/19 07:30 Dose: 10 mg Levetiracetam (Keppra 500mg Ivpb) 500 mg in 100 mls @ 400 mls/hr IV Q12 [facility] Stop: 01/19/19 10:01 Last Admin: 01/12/19 21:20 Dose: 400 mls/hr Nitroglycerin (Nitro-Dur 0.4 Mg/Hr Patch) 1 patch TD DAILY [facility] Last Admin: 01/12/19 10:05 Dose: 1 patch - Labs Labs: 01/12/19 06:35 01/12/19 06:35 PT 14.2 SECONDS (9.4-12.5) H 01/12/19 06:35 INR 1.26 01/12/19 06:35 APTT 33.5 Seconds (26.9-38.3) 01/10/19 19:58 - Constitutional Appears: Well, No Acute Distress - Head Exam Head Exam: ATRAUMATIC, NORMAL INSPECTION, NORMOCEPHALIC - Eye Exam Eye Exam: Normal appearance - ENT Exam ENT Exam: Normal External Ear Exam - Neck Exam Neck Exam: Normal Inspection - Respiratory Exam Respiratory Exam: NORMAL BREATHING PATTERN - Cardiovascular Exam Cardiovascular Exam: absent: JVD - GI/Abdominal Exam GI & Abdominal Exam: absent: Distended - Rectal Exam Rectal Exam: Deferred - Exam Additional comments: Deferred. - Extremities Exam Extremities Exam: Normal Inspection - Back Exam Back Exam: NORMAL INSPECTION - Neurological Exam Neurological Exam: Altered Additional comments: Expressive aphasia. - Psychiatric Exam Psychiatric exam: Normal Affect, Normal Mood - Skin Skin Exam: Normal Color Assessment and Plan - Assessment and Plan (Free Text) Assessment: Seizure. Subdural hematoma. HTN HLD CAD S/P coronary stent placement. Plan: Ativan 2 mg IV x 1 observation. Continue present management.
[2019-01-13 06:53] LABS: BASO # 0.01 K/mm3 (0.0-2.0); BASO % 0.1 % (0.0-3.0); EOS # 0.1 (0.0-0.7); EOS % 0.5 % (1.5-5.0); HEMOGLOBIN 12.5 g/dL (12.0-16.0); LYMPH # 1.6 (1.2-3.4); LYMPH % 14.5 % (22.0-35.0); MEAN CELL VOLUME 86.2 fl (80.0-105.0); MEAN CORPUSCULAR HGB CONC 31.3 g/dl (31.0-37.0); MEAN PLATELET VOLUME 11.1 fl (7.0-11.0); MONO # 1.4 (0.1-0.6); MONO % 13.4 % (1.0-6.0); RBC 4.63 10^6/uL (3.5-6.1); RED CELL DISTRIBUTION WIDTH 15.3 % (11.5-14.5); WHITE BLOOD COUNT 10.8 10^3/uL (4.5-11.0)
[2019-01-13 06:55] LABS: INR 1.2; PROTHROMBIN TIME 13.6 SECONDS (9.4-12.5)
[2019-01-13 07:12] LABS: ALB/GLOB RATIO 0.9 (1.1-1.8); ALBUMIN 3.6 g/dL (3.0-4.8); CALCIUM 8.7 mg/dL (8.4-10.5)
[2019-01-13] MEDS: Nitroglycerin 0.4 mg/hr Top Patch TD SCH ×2 (07:44→18:11)
[2019-01-13] MEDS ORDERED: Fosphenytoin 100 mg/2 ml Inj IV ONE (08:25)
[2019-01-13] MEDS ORDERED: FOSPHENYTOIN IV ONE (08:45)
[2019-01-13] MEDS ORDERED: SODIUM CHLORIDE 0.9% IV ONE (08:45)
[2019-01-13] MEDS: Aritificial Tears (15ml) OU SCH ×3 (09:33→18:13)
--- NOTE | 2019-01-13 09:49 | CP.PCM.PN ---
Subjective - Date & Time of Evaluation Date of Evaluation: 01/13/19 Time of Evaluation: 09:48 - Subjective Subjective: PGY-[address] Heck Pt had received ativan at 5am this morning for restlessness. Daughter by bedside during interview, who states that pt is minimally communicative at baseline, usally communicating by nodding head. Pt is wearing mitten and appear restless. She was at video EEG session Objective - Vital Signs/Intake and Output Vital Signs (last 24 hours): Temp Pulse Resp BP Pulse Ox 98.6 F 71 34 H 149/79 97 01/12/19 16:00 01/13/19 06:40 01/13/19 06:40 01/13/19 06:00 01/13/19 06:40 Intake and Output: 01/13/19 01/13/19 06:59 18:59 Intake Total 100 Output Total 1100 Balance -1000 - Medications Medications: Current Medications Artificial Tears (Artificial Tears) 0 ml OU TID [facility] Last Admin: 01/13/19 09:33 Dose: 1 drop Atorvastatin Calcium (Lipitor) 20 mg PO DIN [facility] Last Admin: 01/12/19 18:05 Dose: 20 mg Hydralazine HCl (Apresoline) 10 mg IVP Q4 PRN PRN Reason: Hypertension Last Admin: 01/12/19 07:30 Dose: 10 mg Levetiracetam 750 mg/ Sodium (Chloride) 107.5 mls @ 215 mls/hr IVPB Q12 [facility] Last Admin: 01/13/19 08:53 Dose: 215 mls/hr Sodium Chloride (Sodium Chloride 0.45%) 1,000 mls @ 40 mls/hr IV .Q24H [facility] Nitroglycerin (Nitro-Dur 0.4 Mg/Hr Patch) 1 patch TD DAILY [facility] Last Admin: 01/13/19 07:44 Dose: 1 patch - Labs Labs: 01/13/19 05:30 01/13/19 05:30 PT 13.6 SECONDS (9.4-12.5) H 01/13/19 05:30 INR 1.20 01/13/19 05:30 APTT 33.5 Seconds (26.9-38.3) 01/10/19 19:58 - Constitutional Appears: No Acute Distress - Head Exam Head Exam: ATRAUMATIC, NORMAL INSPECTION, NORMOCEPHALIC - Eye Exam Eye Exam: EOMI, Normal appearance, PERRL. absent: Scleral icterus - ENT Exam ENT Exam: Mucous Membranes Moist - Neck Exam Additional comments: supple - Respiratory Exam Respiratory Exam: Clear to Ausculation Bilateral, Rhonchi. absent: Rales, Wheezes - Cardiovascular Exam Cardiovascular Exam: REGULAR RHYTHM, +S1, +S2 - GI/Abdominal Exam GI & Abdominal Exam: Soft. absent: Rigid, Tenderness - Neurological Exam Neurological Exam: Alert, Awake Additional comments: more all ext - Skin Skin Exam: Dry, Warm Assessment and Plan - Assessment and Plan (Free Text) Plan: Ms Mckeon, 88F with CAD, HTN/HLD, c/o expressive aphasia, found to have 3x3cm acute hemorrhage @ L frontal lobe. R/O concomitant pituitary apoplexy vs adenoma. Pt is prediabetic A1C 6.4 - Follow serum cortisol, ACTH, TSH, total T4, prolactin - Recommend MRI brain with gadolinium to enhance pituitary. Given Cre 1.3 and low risk of gadolinium contrast to kidney injury, will proceed with imaging with pre-procedure hydration. Currently, pt is at 1/2NS@40 - On seizure prophylaxis per neural; other medical management per primary - Maintain euglycemic. s/r/d/w Dr Heck
--- NOTE | 2019-01-13 10:28 | PN ---
DATE: 01/13/2019 SUBJECTIVE: She is very much mentally out of it today, worse than the other day. She also has mittens on because she is pulling things out. Mentally she is getting worse. She is here for cerebral bleed. She had dysphasia. She improved maybe for a minute and now she is getting worse. She also had seizures. MEDICATIONS: She is on multiple medications. She is on Apresoline, artificial tears, fosphenytoin IV, levetiracetam IV, Lipitor and nitroglycerin patch. OBJECTIVE: VITAL SIGNS: 98.6, temperature, 76 pulse, 116/54 blood pressure, 34 respiratory rate, 97% O2 sat on room air. GENERAL: She is not alert to me, not responding appropriately . HEENT: Head is atraumatic, normocephalic. HEART: Regular rate. LUNGS: Decreased breath sounds. ABDOMEN: Soft. EXTREMITIES: No edema. LABORATORY DATA: She looks dry, we are going to start her on IV fluids, Dulcolax suppository, and swallow evaluation. She has a 10.8 white count, 12.5 hemoglobin, 39.9 hematocrit with a 219 platelets. Sodium 142, potassium 4.3, BUN 36, creatinine 1.8, GFR is 39, sugar is 114, calcium is 8.7, total bili is 0.7. AST is 27, ALT is 13, alk phos 79, total protein 7.3. TSH is 0.65. She is being seen by Endocrinology, Neurology, Cardiology multiple issues going on here. Continue aggressive treatment and care. Richard Byers DO MTDD
[2019-01-13 12:28] LABS: PROLACTIN 35.1 ng/mL (3.0-18.9)
--- NOTE | 2019-01-13 15:14 | CARD ---
APPROVED REPORT Date of service: 01/12/2019 EXAM: Two-dimensional and M-mode echocardiogram with Doppler and color Doppler. INDICATION LVFX 2D DIMENSIONS Left Atrium (2D)5.2 (1.6-4.0cm)IVSd1.2 (0.7-1.1cm) LVDd4.8 (3.9-5.9cm)LVOT Diameter2.1 (1.8-2.4cm) PWd1.3 (0.7-1.1cm)LVDs3.6 (2.5-4.0cm) FS (%) 26.0 %LVEF (%)50.9 (>50%) M-Mode DIMENSIONS Aortic Root3.30 (2.2-3.7cm)Aortic Cusp Exc.0.70 (1.5-2.0cm) Aortic Valve AoV Peak Nzcupakd079.0cm/sAoV VTI61.3cmAO Peak GR.36mmHg LVOT Peak Ioxhhfkn07.5cm/sLVOT VTI18.20cmAO Mean GR.16mmHg VAMSHI (VMAX)1.86xt2IPK (VTI)1.03cm2 Mitral Valve MV E Bcyhwpnc29.2cm/sMV A Qpuxwoor22.4cm/sE/A ratio0.7 TDI Lateral E' Peak V9.75cm/sMedial E' Peak V3.90cm/sE/Lateral E'6.2 E/Medial E'15.4 Pulmonary Valve PV Peak Ifzecyps38.8cm/sPV Peak Grad.1mmHg Tricuspid Valve TR Peak Wjnhnzrk212nj/sRAP [id number] Peak Gr.35mmHg BUMF87tnMg LEFT VENTRICLE There is mild concentric left ventricular hypertrophy. The left ventricular function is normal. The left ventricular ejection fraction is within the normal range. RIGHT VENTRICLE The right ventricle is normal size. ATRIA The left atrium is moderately dilated. The right atrium size is normal. AORTIC VALVE The aortic valve is calcified and displays decreased opening. There is trace to mild aortic regurgitation. There is mild to moderate valvular aortic stenosis. MITRAL VALVE The mitral valve is thickened but opens well. Mitral regurgitation is mild. TRICUSPID VALVE The tricuspid valve leaflets are thickened , but open well. There is mild to moderate tricuspid regurgitation. There is mild to moderate pulmonary hypertension. PULMONIC VALVE The pulmonic valve is not well visualized. PERICARDIAL EFFUSION There is no pericardial effusion. <Conclusion> Mild LVH with good function Dilated LA Mild to moderate AoV stenosis Mild AI and MR Mild to moderate TR Mild to moderate pulmonary hypertension
--- NOTE | 2019-01-13 16:04 | CP.PCM.PN ---
Subjective - Date & Time of Evaluation Date of Evaluation: 01/13/19 Time of Evaluation: 16:44 - Subjective Subjective: DATE: 01/13/2019 CHIEF COMPLAINT: Status post left frontal lobe intracranial hemorrhage. SUBJECTIVE: The patient is seen and examined at bedside. The patient is lethargic, has some Broca's type aphasia from the left frontal hemorrhage. She had a break through seizure. Keppra increased and 1 dose of cerebryx given. Cotinous eeg showed no active spikes. just slowing. PAST MEDICAL HISTORY: History of pituitary adenoma, hypertension, hypercholesterolemia. REVIEW OF SYSTEMS: 14-point review of systems is negative except as per HPI. ALLERGIES: NO KNOWN DRUG ALLERGIES. MEDICATIONS: Reviewed by nurse's reconciliation sheet. SOCIAL HISTORY: No illicit drugs, smoking, or EtOH abuse. LABORATORY DATA: Reviewed. PHYSICAL EXAMINATION: GENERAL: The patient is lethargic, in no acute distress. VITAL SIGNS: Reviewed. HEENT: Atraumatic, normocephalic. PERRLA. Extraocular muscles are intact. NECK: Supple. No JVD. No adenopathy. LUNGS: Clear to auscultation. No adventitious sounds. HEART: S1 and S2. Normal rate and rhythm. No murmurs, rubs, or gallops. ABDOMEN: Soft, nontender, nondistended. Bowel sounds present. EXTREMITIES: No clubbing, no cyanosis. Peripheral pulses 2+ felt bilaterally. NEUROLOGIC: The patient is lethargic. No acute distress. Has Broca's type aphasia from left intracranial hemorrhage. Cranial nerves II through XII intact with a mild right facial droop. Motor exam: Mild right sided weakness when compared to the left. Toes are downgoing bilaterally. Sensory: Light touch is intact bilaterally. Withdraws to localized noxious stimulus. DTRs are 2+ throughout. Coordination and gait deferred for now. ASSESSMENT AND PLAN: Acute 3 cm hematoma left frontal lobe hemorrhage secondary to underlying uncontrolled hypertension. Adjacent subarachnoid hemorrhage. CTA angiogram of the head showed no evidence of any aneurysm. She has a pituitary adenoma. She had new-onset seizure secondary to acute left frontal intracranial hemorrhage and her Broca's type aphasia is secondary to left frontal intracranial hemorrhage as well. RECOMMENDATIONS: At this time we recommend: 1. Keppra 750 mg IV every 12 hours for seizure prophylaxis. 2. Keep her systolic blood pressure 120-130 and diastolic 70-80. 3. Will avoid any antiplatelet medications for the next three weeks in the onset of bleed. 4. PT/OT and speech therapy, and acute rehab. Jasen France MD Objective - Vital Signs/Intake and Output Vital Signs (last 24 hours): Temp Pulse Resp BP Pulse Ox 98.6 F 79 26 H 143/87 90 L 01/12/19 16:00 01/13/19 14:00 01/13/19 14:00 01/13/19 14:00 01/13/19 14:00 Intake and Output: 01/13/19 01/13/19 06:59 18:59 Intake Total 100 Output Total 1100 Balance -1000 - Medications Medications: Current Medications Artificial Tears (Artificial Tears) 0 ml OU TID [facility] Last Admin: 01/13/19 15:29 Dose: 1 drop Atorvastatin Calcium (Lipitor) 20 mg PO DIN [facility] Last Admin: 01/12/19 18:05 Dose: 20 mg Hydralazine HCl (Apresoline) 10 mg IVP Q4 PRN PRN Reason: Hypertension Last Admin: 01/12/19 07:30 Dose: 10 mg Levetiracetam 750 mg/ Sodium (Chloride) 107.5 mls @ 215 mls/hr IVPB Q12 [facility] Last Admin: 01/13/19 08:53 Dose: 215 mls/hr Sodium Chloride (Sodium Chloride 0.45%) 1,000 mls @ 40 mls/hr IV .Q24H [facility] Nitroglycerin (Nitro-Dur 0.4 Mg/Hr Patch) 1 patch TD DAILY [facility] Last Admin: 01/13/19 07:44 Dose: 1 patch - Labs Labs: 01/13/19 05:30 01/13/19 05:30 PT 13.6 SECONDS (9.4-12.5) H 01/13/19 05:30 INR 1.20 01/13/19 05:30 APTT 33.5 Seconds (26.9-38.3) 01/10/19 19:58
--- NOTE | 2019-01-13 17:13 | PN ---
DATE: 01/13/2019 CARDIOLOGY FOLLOWUP SUBJECTIVE: The patient's mentation seems to be worse. There is no dyspnea. It appears the patient had a seizure episode. PHYSICAL EXAMINATION VITAL SIGNS: Blood pressure 143/87, the heart rates in the 80s. NECK: Negative JVD. LUNGS: Without rales. HEART: S1, S2. EXTREMITIES: Without edema. LABORATORY JOHN: Hemoglobin is 12.5. Chemistries, BUN and creatinine 36 and 1.3. ECHOCARDIOGRAM: Echocardiogram is pending. IMPRESSION 1. Status post cerebrovascular accident. 2. Intracerebral bleed. 3. Hypertension. 4. Seizures. PLAN: Given these findings, the patient in the ICU. We will review her echocardiogram. Lyndon Robledo MD
[2019-01-14 06:25] LABS: HEMOGLOBIN 12.7 g/dL (12.0-16.0); MEAN CELL VOLUME 87.2 fl (80.0-105.0); MEAN CORPUSCULAR HEMOGLOBIN 27.2 pg (25.0-35.0); MEAN CORPUSCULAR HGB CONC 31.2 g/dl (31.0-37.0); MEAN PLATELET VOLUME 10.7 fl (7.0-11.0); RBC 4.67 10^6/uL (3.5-6.1); RED CELL DISTRIBUTION WIDTH 15.5 % (11.5-14.5); WHITE BLOOD COUNT 15.1 10^3/uL (4.5-11.0)
[2019-01-14 07:46] LABS: ALB/GLOB RATIO 0.9 (1.1-1.8); ALBUMIN 3.6 g/dL (3.0-4.8); CALCIUM 8.2 mg/dL (8.4-10.5)
--- NOTE | 2019-01-14 08:36 | PCM.VEEG ---
Video EEG - Procedure Start Date: 01/13/19 - Interpretation Description of the study: This is a multichannel inpatient Video-EEG monitoring performed in accordance with recommendations specified by the [place] [employer] (ACNS: Guidelines 1; Section 2, 2006). The 10-20 electrode placement system was utilized in adherence with guidelines detailed by the International Federation of Clinical Neurophysiology (IFCN; Roosevelt JEREZ, 1983). Physiologic EEG data and video was acquired digitally. A minimum of at least 22 channels was used for digital data acquisition. Electrophysiologic data was sampled at a rate of 512 Hz. Digital high and low pass filtering was used where appropriate. Data was formatted to various electrode montages as deemed pertinent. All EEG information was analyzed by spike and seizure detection software. In addition, all EEG information was reviewed by a physician. A bedside event button was used to provide a time stamp for clinical events. EEG Finding during wakefulness: Theta activity at 6-7 Hz predominated in the posterior region. Beta activity was seen in the fronto-central regions Left hemisphere, more anterior, slowing was seen EEG Finding during sleep: Slower rhythms were seen during sleep. Sleep spindles and vertex waves were noted Interictal non-epileptiform abnormalities: Left fronto-temporal continuous slowing Interictal epileptiform abnormalities: none Ictal epileptiform abnormalities: none - Impression Impression: Abnormal video-EEG due to the presence of: -Diffuse slowing of the background -Left fronto-temporal continuous slowing CLINICAL CORRELATION: -Diffuse encephalopathy -Left fronto-temporal structural lesion
--- NOTE | 2019-01-14 08:48 | PCM.EEG ---
Electroencephalogram Report - Electroencephalogram Report Procedure Date: 01/13/19 Condition of Recording: Awake Interpretation: This is a 16-channel EEG, 1-channel EKG performed with the patient awake A moderate amount of muscle and movement artifact activity was seen throughout the recording. With the patient awake, theta activity at 6-7 cps was seen in the posterior regions. Theta amplitude ranged between 30-70 mcv. Beta activity was seen in the frontal central region ranging between 18-25 Hz and amplitude ranged between 10-30 mcv. Left fronto-temporal continuous slowing was seen. There was no epileptiform activity seen. IMPRESSION: Abnormal EEG due to the presence of: 1) Diffuse slowing of the background 2) Left fronto-temporal continuous slowing CLINICAL CORRELATION: These findings support the diagnosis of: 1) Mild diffuse encephalopathy 2) Left fronto-temporal structural lesion Impression:
[2019-01-14] MEDS: Nitroglycerin 0.4 mg/hr Top Patch TD SCH (10:28)
[2019-01-14] MEDS: Sodium Chloride 0.45% 1,000 ML IV SCH ×2 (10:29→10:30)
--- NOTE | 2019-01-14 12:56 | RAD ---
Date of service: 01/14/2019 HISTORY: Cough COMPARISON: Comparison made with prior chest radiograph 01/10/2019 TECHNIQUE: 1 view obtained. FINDINGS: LUNGS: Poor inspiration with low lung volumes, crowded bronchovascular markings and mild bibasilar atelectasis left greater than right; the possibility of developing left lower lobe infiltrate and small effusion to be excluded with follow-up radiographs. PLEURA: As above. No pneumothorax apparent. CARDIOVASCULAR: Mild aortic atherosclerotic calcification present. Heart remains enlarged. No pulmonary vascular congestion. OSSEOUS STRUCTURES: Mild multilevel degenerative spondylosis of the thoracic and lumbar spine. There is a levoscoliosis centered at approximately the thoracolumbar junction. VISUALIZED UPPER ABDOMEN: Normal. OTHER FINDINGS: None. IMPRESSION: Poor inspiration with low lung volumes common crowded bronchovascular markings and bibasilar atelectasis left greater than right. Developing left lower lobe infiltrate with small effusion could be excluded with radiographs.
[2019-01-14] MEDS: Aritificial Tears (15ml) OU SCH ×3 (14:00→17:59)
--- NOTE | 2019-01-14 15:22 | PN ---
DATE: 01/14/2019 SUBJECTIVE: I saw Estella in the intensive care unit. She is not doing that well. I saw her with a swallow evaluation patient and daughter. She came in with cerebral bleed. She also had a seizure while she was here. We are going to stop her from being fed, n.p.o., NG tube. She had a chest x-ray, she sounds very congested. PHYSICAL EXAMINATION VITAL SIGNS: A 99 temperature, 80 pulse, 113/72 blood pressure, 38 respiratory rate and 94% O2 per sat. HEENT: Head is atraumatic and normocephalic. LUNGS: Decreased breath sounds. Congestion. ABDOMEN: Soft. EXTREMITIES: No edema. LABORATORY DATA: A 142 sodium, potassium 4.3, BUN 30, creatinine 1.1, GFR is 47, sugar is 130, calcium is 8.2, total bili is 0.8, AST is 25, ALT is 9, alk phos 78 and total protein 7.5. White count , I will call Infectious Disease, hemoglobin is 12.7, hematocrit 40.7 and platelets of 226. Hopefully she will do well. She has a chest x-ray today. Infectious Disease consult. EEG is in process. Will call if anything changes. Discussed at length with the daughter. Richard Byers DO MTDD
[2019-01-14] MEDS: Cefepime 1gm in NS 100ml 1 GM/100 ML BAG IVPB SCH (15:29)
--- NOTE | 2019-01-14 16:41 | PN ---
DATE: 01/14/2019 SUBJECTIVE: I saw her in the intensive care unit. She had a change in mentation with cerebral bleed on CAT scan. Neurosurgery says it has nothing to do. Neurologist feels that in 6 months she should be observed and she should be okay. Over the past 2 days, she is slowly deteriorated. For right now, she cannot even swallow anymore and it is possible she aspirated. She will be on an NG tube now with n.p.o. feeding. I am going to do a chest x-ray and see if she did not have an aspiration, because she does have congestion and she did not sound that way yesterday. She is here with the daughter, explained to the daughter what is going on and possible future she has for Estella, if she does not start to reverse. MEDICATIONS: She is on Apresoline, Artificial Tears, Keppra, Lipitor, Nitro-Dur, and IV fluids because she did have a seizures while she was here too on top of everything else. PHYSICAL EXAMINATION: VITAL SIGNS: She has a 99 temperature, 80 pulse, 138/72 blood pressure, 38 respiratory rate, and 94% of O2 sat. HEENT: Head is bandaged. Her eyes are open. She is not really looking at me, not able to swallow at this time with the swallow evaluation lady. HEART: Regular rate. LUNGS: Congestion upper airway, but I am concerned about an aspiration. Poor breaths sounds and poor inspiration, linear chest x-ray. ABDOMEN: Soft and nontender. EXTREMITIES: No edema. LABORATORY DATA: She has a 15.1 white count, I am going plan and call in Infectious Disease, because that is new, hemoglobin is 12.7, hematocrit is 40.7 and, platelets are 226. INR is 1.2. She has a 142 sodium, potassium 4.3, BUN 30, creatinine 1.1 that is a little bit better than when she came in. She has a 47 GFR, last blood sugar is 118, calcium is 8.2, total bili is 0.8, AST is 25, ALT is 9, phosphorus 78 and total protein is 7.5. I am getting concerned now because the white count went up, she has congestion of her lungs. It is very possible she has an aspiration pneumonia. I will call in Infectious Disease to get chest x-ray, NG tube, n.p.o. and we will see how she is progresses. She had a cerebral bleed, seizure and now possible pneumonia. Richard Byers DO MTDAdelaide
--- NOTE | 2019-01-14 19:39 | CON ---
DATE: 01/14/2019 LOCATION: The patient is seen in Counts include 234 beds at the [facility], bed 5. CHIEF COMPLAINT: Elevated WBC count times 1 day duration. HISTORY OF PRESENT ILLNESS: This is an 88-year-old female with coronary artery disease, hypertension, urinary tract infection, pituitary adenoma, and high cholesterol who was admitted with a diagnosis of acute intraparenchymal hemorrhage and the patient is seen in the emergency room by Dr. Ariel Lopez on 01/10/2019. The patient has an increased WBC count, Infectious Disease consultation requested. No fevers have been reported. No chills and no abdominal pain, diarrhea, or constipation. REVIEW OF SYSTEMS: A 12-point review of systems is performed. PAST MEDICAL HISTORY: Significant for coronary artery disease, hypertension, urinary tract infection, pituitary adenoma, high cholesterol, and cataracts. PAST SURGICAL HISTORY: Significant for cardiac catheterization with stent placement and hysterectomy. ALLERGIES: THE PATIENT HAS NO KNOWN ALLERGIES. MEDICATIONS: Reviewed and noted to be on Lipitor, nitrofurantoin, Lasix, and aspirin. PHYSICAL EXAMINATION: GENERAL: The patient is seen in bed, in no acute distress who is chronically ill and debilitated. VITAL SIGNS: Temperature of 98, respiratory rate of 30, and heart rate of 76. HEENT: Unremarkable. NECK: Supple. LUNGS: Decreased breath sounds. HEART: Normal S1 and S2. ABDOMEN: Soft. LABORATORY DATA: Reveals the patient's white count is up to 15,000, hemoglobin of 12, and platelets of 226. BUN of 30 and creatinine of 1.1. Coagulation is noted. Chemistries are noted and not detected. Chest x-ray is noted to have infiltrates and edema. Dr. France's progress note is appreciated. ASSESSMENT AND PLAN: This is an 88-year-old female with sepsis for a left lower lobe healthcare-associated pneumonia with acute 3 cm left frontal lobe intracranial hemorrhage with methicillin-resistant Staphylococcus aureus screen is negative. We will order blood culture, urine culture, sputum culture, urinalysis, and procalcitonin and treat the patient with IV Maxipime, adjusted for renal insufficiency. We will follow closely with you. Magdaleno Connors MD [facility] # [id number]
--- NOTE | 2019-01-15 00:10 | PN ---
DATE: 01/14/2019 ENDOCRINOLOGY FOLLOWUP NOTE LOCATION: In CCU 129, room 5. SUBJECTIVE: This is an 88-year-old female with intracranial hemorrhage in the left frontal lobe, presenting here with expressive aphasia and is now being followed closely for metabolic management. LABORATORY DATA: Her chemistries today showed a BUN of 21, sodium 139, potassium 4.8, chloride 107, CO2 of 23, glucose 87, and creatinine 1.2. Her hormonal profile was actually optimal as noted. Her glucose values have ranged from 118-137 and 148 mg/dL. Her hormonal profile showed prolactin level of 35.1 with a cortisol level of 18.4 and TSH level of 0.65 with a T4 of 8.3. 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 CAT scan of the brain showed partially calcified pituitary mass lesion as noted. Her MRI report is pending at this time as noted. ASSESSMENT AND PLAN: So, for now, we will hold off any kind of hormonal intervention therapy at this time. We try to order the bromocriptine or Parlodel medication, but it is not available in our hospital formulary at this time. We will obtain serial chemistries and serial hormonal profile as indicated. We will follow. June Heck MD
[2019-01-15 01:36] LABS: PH,URINE 5.5 (4.7-8.0); URINE BILIRUBIN NEGATIVE (NEGATIVE); URINE BLOOD SMALL (NEGATIVE); URINE GLUCOSE (UA) NEGATIVE (NEGATIVE); URINE LEUKOCYTE ESTERASE NEGATIVE Leu/uL (NEGATIVE); URINE PROTEIN 30 mg/dL (<30 mg/dL)
[2019-01-15 01:37] LABS: URINE APPEARANCE SL CLOUDY (CLEAR); URINE COLOR YELLOW (YELLOW)
[2019-01-15 02:12] LABS: URINE EPITHELIAL CELLS 0 - 2 /hpf (0-5); URINE WBC 0 - 2 /hpf (0-6)
[2019-01-15 06:31] LABS: HEMOGLOBIN 11.7 g/dL (12.0-16.0); MEAN CELL VOLUME 88.2 fl (80.0-105.0); MEAN CORPUSCULAR HEMOGLOBIN 27.1 pg (25.0-35.0); MEAN CORPUSCULAR HGB CONC 30.7 g/dl (31.0-37.0); MEAN PLATELET VOLUME 11.1 fl (7.0-11.0); RBC 4.32 10^6/uL (3.5-6.1); RED CELL DISTRIBUTION WIDTH 15.2 % (11.5-14.5); WHITE BLOOD COUNT 16.5 10^3/uL (4.5-11.0)
[2019-01-15 06:36] LABS: ALB/GLOB RATIO 0.8 (1.1-1.8); ALBUMIN 3.2 g/dL (3.0-4.8); CALCIUM 8.5 mg/dL (8.4-10.5)
--- NOTE | 2019-01-15 08:41 | PCM.VEEG ---
Video EEG - Interpretation EEG Finding during wakefulness: EEG Finding during wakefulness: Theta activity at 6-7 Hz predominated in the posterior region. Beta activity was seen in the fronto-central regions Left hemisphere, more anterior, slowing was seen EEG Finding during sleep: EEG Finding during sleep: Slower rhythms were seen during sleep. Sleep spindles and vertex waves were noted Interictal non-epileptiform abnormalities: Interictal non-epileptiform abnormalities: Left fronto-temporal continuous slowing Interictal epileptiform abnormalities: none Ictal epileptiform abnormalities: There were button presses with mild body, mouth and hands movements, not associated with EEG changes - Impression Impression: Impression: Abnormal video-EEG due to the presence of: -Diffuse slowing of the background -Left fronto-temporal continuous slowing
[2019-01-15] MEDS: Nitroglycerin 0.4 mg/hr Top Patch TD SCH (09:28)
[2019-01-15] MEDS: Sodium Chloride 0.45% 1,000 ML IV SCH (09:30)
[2019-01-15] MEDS: Aritificial Tears (15ml) OU SCH ×3 (09:33→18:51)
--- NOTE | 2019-01-15 13:11 | PN ---
DATE: 01/15/2019 SUBJECTIVE: The patient is in bed, in no acute distress. The patient is seen in 129, bed 5. No more fevers. PHYSICAL EXAMINATION: VITAL SIGNS: Temperature is 98, blood pressure is 150/60, respiratory rate of 18, heart rate of 84. HEENT: Unremarkable. NECK: Supple. LUNGS: Have decreased breath sounds. HEART: Normal S1, S2. ABDOMEN: Soft. LABORATORY DATA: Laboratory examination reveals a white count of 16,500, hemoglobin 11. Chemistries reveals a BUN of 30, creatinine 1.2, procalcitonin 0.2. Urinalysis is noted. Microbiology, MRSA is not detected in nasal. Review of orders reveals the patient to be on cefepime. Blood cultures are pending. Urine cultures are pending. ASSESSMENT AND PLAN: This is an 88-year-old female who was seen earlier today in 129, bed 5 with a history of coronary artery disease, hypertension, urinary tract infection, pituitary adenoma, high cholesterol, was admitted with acute intraparenchymal hemorrhage in a patient with sepsis, now with a left lower lobe healthcare-associated pneumonia in addition to the acute 3 cm left frontal lobe intracranial hemorrhage with nasal methicillin-resistant Staphylococcus aureus screen being negative. We will cover with Maxipime adjusted for renal sufficiency, today is day #2. We will need 4 to 7 days of antibiotics. Case discussed with Dr. Richard Byers who is in charge of this case. Magdaleno Connors MD
[2019-01-15] MEDS: Cefepime 1gm in NS 100ml 1 GM/100 ML BAG IVPB SCH (13:31)
--- NOTE | 2019-01-15 14:14 | PN ---
DATE: 01/15/2019 SUBJECTIVE: I saw her in the intensive care unit with family present. They do not want the NG tube in. They feel that she is improving mentally little bit, I agree. She was looking at me better. She stuck her tongue out at me when I asked her to. She is moving the hands better. It is very possible that she might fail to swallow today. They want to avoid the NG tube. She is on Apresoline, artificial tears, Keppra IV, Lipitor, Maxipime IV, Nitro-Dur and IV fluids but there is definitely a difference seen yesterday and today in her mental capacity and her alertness which is great. She is here for cerebral bleed. PHYSICAL EXAMINATION: VITAL SIGNS: Temperature 98.5, 136/70 blood pressure, 27 respiratory rate, 100% O2 sat on oxygen. HEAD: Atraumatic, normocephalic. She is looking at me more alert than yesterday. She was out of it yesterday. HEART: Regular rate. LUNGS: Decreased breath sounds but clear. ABDOMEN: Soft. EXTREMITIES: No edema. Hopefully, when the swallowing person comes in today, they can help her. White count was 16.5 today, 11.7 hemoglobin, 38.1 hematocrit with 195 platelets. INR is 1.2. Sodium 143, potassium 4.2, BUN 30, creatinine 1.2, GFR is 43, sugar is 105, calcium is 8.5, total bili is 0.8. AST is 23, ALT is 16, alk phos 74. Total protein 7.1. Urine was clean. She is being seen by Infectious Disease now, Endocrinology. She has a left lower lobe pneumonia, 3-cm left frontal lobe intracranial hemorrhage and I do think she is a little bit than better when she came in. She is on Maxipime IV and Keppra IV. Continue aggressive treatment and care on . I think she is to stay in the unit maybe one more day. Hopefully, she will pass the swallow eval. Richard Byers DO
--- NOTE | 2019-01-15 14:53 | RAD ---
Date of service: 01/15/2019 HISTORY: feeding tube placement COMPARISON: Comparison made with prior chest 01/14/2019 at 1232 hr. TECHNIQUE: 1 view obtained. FINDINGS: In situ feeding tube, the tip of which overlies left upper quadrant of the abdomen. LUNGS: Persistent elevation of the right hemidiaphragm with mild right basilar atelectasis. Minor left basilar atelectasis also present. PLEURA: No significant pleural effusion identified, no pneumothorax apparent. CARDIOVASCULAR: Aorta ectatic and uncoiled. Mild aortic atherosclerotic calcification present. Cardiomegaly.. No pulmonary vascular congestion. OSSEOUS STRUCTURES: No significant abnormalities. VISUALIZED UPPER ABDOMEN: Normal. OTHER FINDINGS: None. IMPRESSION: No active disease.
[2019-01-16 07:08] LABS: HEMOGLOBIN 10.7 g/dL (12.0-16.0); MEAN CELL VOLUME 86.5 fl (80.0-105.0); MEAN CORPUSCULAR HEMOGLOBIN 26.3 pg (25.0-35.0); MEAN CORPUSCULAR HGB CONC 30.4 g/dl (31.0-37.0); MEAN PLATELET VOLUME 10.2 fl (7.0-11.0); RBC 4.07 10^6/uL (3.5-6.1); RED CELL DISTRIBUTION WIDTH 15.2 % (11.5-14.5); WHITE BLOOD COUNT 12.7 10^3/uL (4.5-11.0)
[2019-01-16 07:34] LABS: ALB/GLOB RATIO 0.8 (1.1-1.8); ALBUMIN 2.9 g/dL (3.0-4.8); ALT/SGPT 24 U/L (7-56); AST/SGOT 51 U/L (14-36); BLOOD UREA NITROGEN 33 mg/dL (7-21); CALCIUM 8.4 mg/dL (8.4-10.5); GFR NON-AFRICAN AMERICAN 53
--- NOTE | 2019-01-16 08:48 | PN ---
DATE: 01/15/2019 ENDOCRINOLOGY FOLLOWUP NOTE LOCATION: [facility], Room 5. SUBJECTIVE: This is an 88-year-old female with recent left frontal intracranial hemorrhage, presenting here with expressive aphagia and is now being followed closely for metabolic management. She also had an incidental finding and a CAT scan of the brain showing partially calcified pituitary adenoma as noted thereof. Her hormonal profile was actually normal as obtained and the serum cortisol and TSH values were optimal as noted. 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 We do not carry in the hospital formulary, the could be medications as noted. However, because of the slight elevation only at the prolactin level, this is actually clinically insignificant at this point in time, and we will observe only serial chemistries and serial prolactin levels accordingly. We will follow and advised accordingly. Her chemistry today showed a BUN of 30, sodium 143, potassium 4.2, chloride 110, CO2 of 25, glucose 105, and creatinine 1.2. Her glycemic profile is near optimal, ranging from 120 to 172 mg/dL. So, at this time, we will concur with the present medical and neurological management as ordered. We will follow. June Heck MD
--- NOTE | 2019-01-16 09:00 | PN ---
DATE: 01/13/2019 ENDOCRINE PROGRESS NOTE LOCATION: [facility]U 129, Room 5. SUBJECTIVE: This is an 88-year-old female with a left frontal intracranial hemorrhage who is presenting here with expressive aphasia and is now also being followed closely for endocrine evaluation because of an incidental finding of a calcified pituitary mass lesion as noted thereof. She remains clinically euthyroid and euadrenal at this time. LABORATORY DATA: Her chemistry showed a BUN of 36, sodium 142, potassium 4.3, chloride 110, CO2 of 24, glucose 114 and creatinine 1.3. Her TSH level is 0.65 with a T4 of 8.3. Her prolactin level is 35.1, which is slightly elevated and could most likely be related either to a stalk compression in the hypothalamic pituitary area because if this is truly a prolactinoma with the large dimensions of the gland, we should expect much higher prolactin levels as noted. Her cortisol level is 18.4 mcg/dL, which is also optimal and normal as noted. ASSESSMENT: This is an 88-year-old female with expressive aphasia and concomitant underlying left frontal intracranial hemorrhage with a recent breakthrough seizure and is now being followed closely for metabolic management. 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 She remains euthyroid and euadrenal clinically and hemodynamically as noted thereof and this has been proven also with the biochemical and hormonal indices as noted. PLAN OF MANAGEMENT: We will initiate a very low dose of bromocriptine medications with 2.5 mg at bedtime as ordered. We will continue the IV hydration as ordered and obtain serial chemistries accordingly. However, with the attempt to initiate the bromocriptine medication, it is actually not available in our hospital drug formulary at this time. We will obtain serial chemistries accordingly and serial prolactin levels. I would highly recommend an MRI of the pituitary area with and without contrast to fully enhance and delineate the pituitary mass lesion accordingly. June Heck MD
[2019-01-16] MEDS: Aritificial Tears (15ml) OU SCH ×3 (09:10→17:05)
[2019-01-16] MEDS: Sodium Chloride 0.45% 1,000 ML IV SCH (09:16)
--- NOTE | 2019-01-16 09:47 | CP.PCM.PN ---
Subjective - Date & Time of Evaluation Date of Evaluation: 01/16/19 Time of Evaluation: 09:44 - Subjective Subjective: PGY3 for Dr Umang Blas Pt's 4 daughter by bedside. Pt is able to communicate via gesture, Pt recognized daughter and follow commands Objective - Vital Signs/Intake and Output Vital Signs (last 24 hours): Temp Pulse Resp BP Pulse Ox 98.8 F 68 26 H 134/62 98 01/16/19 04:00 01/16/19 07:30 01/16/19 07:30 01/16/19 07:00 01/16/19 07:30 Intake and Output: 01/16/19 01/16/19 06:59 18:59 Intake Total 840 Output Total 450 Balance 390 - Medications Medications: Current Medications Artificial Tears (Artificial Tears) 0 ml OU TID BO Last Admin: 01/16/19 09:10 Dose: 1 drop Atorvastatin Calcium (Lipitor) 20 mg PO DIN BO Last Admin: 01/15/19 18:08 Dose: 20 mg Hydralazine HCl (Apresoline) 10 mg IVP Q4 PRN PRN Reason: Hypertension Last Admin: 01/12/19 07:30 Dose: 10 mg Levetiracetam 750 mg/ Sodium (Chloride) 107.5 mls @ 215 mls/hr IVPB Q12 BO Last Admin: 01/16/19 09:10 Dose: 215 mls/hr Sodium Chloride (Sodium Chloride 0.45%) 1,000 mls @ 40 mls/hr IV .Q24H BO Last Admin: 01/16/19 09:16 Dose: 40 mls/hr Cefepime HCl (Maxipime 1gm) 1 gm in 100 mls @ 100 mls/hr IVPB Q24H BO; Protocol Stop: 01/21/19 13:46 Last Admin: 01/15/19 13:31 Dose: 100 mls/hr Nitroglycerin (Nitro-Dur 0.4 Mg/Hr Patch) 1 patch TD DAILY BO Last Admin: 01/15/19 09:28 Dose: 1 patch - Labs Labs: 01/16/19 06:48 01/16/19 06:48 PT 13.6 SECONDS (9.4-12.5) H 01/13/19 05:30 INR 1.20 01/13/19 05:30 APTT 33.5 Seconds (26.9-38.3) 01/10/19 19:58 - Constitutional Appears: No Acute Distress - Head Exam Head Exam: ATRAUMATIC, NORMAL INSPECTION, NORMOCEPHALIC - Eye Exam Eye Exam: EOMI, Normal appearance, PERRL. absent: Scleral icterus Pupil Exam: NORMAL ACCOMODATION - ENT Exam ENT Exam: Mucous Membranes Moist Additional comments: NG tube in place - Neck Exam Additional comments: supple - Respiratory Exam Respiratory Exam: Clear to Ausculation Bilateral. absent: Rales, Rhonchi, Wheezes - Cardiovascular Exam Cardiovascular Exam: REGULAR RHYTHM, +S1, +S2 - GI/Abdominal Exam GI & Abdominal Exam: Soft. absent: Rigid, Tenderness - Extremities Exam Extremities Exam: absent: Calf Tenderness, Pedal Edema - Neurological Exam Neurological Exam: Alert, Awake Additional comments: able to follow command - Psychiatric Exam Psychiatric exam: Normal Affect, Normal Mood - Skin Skin Exam: Dry, Warm Assessment and Plan - Assessment and Plan (Free Text) Plan: Ms Mckeon, 88F with CAD, HTN/HLD, c/o expressive aphasia, found to have 3x3cm acute hemorrhage @ L frontal lobe. R/O concomitant pituitary apoplexy vs adenoma . CT scan showed partly calcified pituitray adenoma. Pt is prediabetic A1C 6.4 - Serum cortisol, ACTH, TSH, total T4 - normal - prolactin - 35, slight elevated, likely stalk compression, clinically i nsignificant. - Bromocriptin 2.5 daily, serial prolactin - Recommend MRI brain with gadolinium to enhance pituitary. - On seizure prophylaxis per neural; other medical management per primary - Maintain euglycemic. s/r/d/w Dr Heck
--- NOTE | 2019-01-16 12:11 | PN ---
DATE: 01/16/2019 SUBJECTIVE: I saw her in the intensive care unit. She is having mittens on her hands because she is pulling things out as there is NG tube in her nose to feed as she failed the swallow eval three days in a row. She has a cerebral bleed with aphasia. She is being seen by multiple physicians. Family does not want any feeding tube at all. She cannot get her swallowing back and they do not want a feeding tube. They also want to know how the brain is doing. If there is more swelling or not from the cerebral bleed. I ordered CAT scan of the head. PHYSICAL EXAMINATION: VITAL SIGNS: Temperature 98.8, pulse 75, respiratory rate 36, 90% O2 sat on room air. HEAD: Atraumatic, normocephalic. GENERAL: She is looking at me. She is upset. HEENT: Throat is dry. HEART: Regular rate. LUNGS: Decreased breath sounds. ABDOMEN: Soft. EXTREMITIES: Weakness of all four extremities. In and out of it mentally. LABORATORY DATA: She has a 12.7 white count, coming down; 10.7 hemoglobin; 35.2 hematocrit; 171 platelets. Sodium 141, potassium 3.9, BUN 33, creatinine 1, GFR is 53, sugar is 115, calcium is 8.4, total bilirubin is 0.4. AST is 51, ALT is 24, alkaline phosphorus 74, total protein 6.5. ASSESSMENT AND PLAN: She has consults with numerous physicians Endocrinology, Infectious Disease, Cardiology, Neurology. I ordered CAT scan of the brain to see if the swelling is getting better or the same. Left lower lobe pneumonia, 3 cm left frontal lobe intracranial hemorrhage. We will continue with aggressive treatment and care on Estella Mckeon. Hopefully, she can swallow again. Richard Byers DO MTDD
[2019-01-16] MEDS: Nitroglycerin 0.4 mg/hr Top Patch TD SCH (12:21)
[2019-01-16] MEDS: Cefepime 1gm in NS 100ml 1 GM/100 ML BAG IVPB SCH (14:02)
--- NOTE | 2019-01-16 15:49 | CP.PCM.PN ---
Subjective - Date & Time of Evaluation Date of Evaluation: 01/16/19 Time of Evaluation: 15:00 - Subjective Subjective: DATE: 01/16/2019 CHIEF COMPLAINT: Status post left frontal lobe intracranial hemorrhage. SUBJECTIVE: The patient is seen and examined at bedside. The patient is more alert, has brocas aphasia and follows simple commands. MRI brain reviewed. PAST MEDICAL HISTORY: History of pituitary adenoma, hypertension, hypercholesterolemia. REVIEW OF SYSTEMS: 14-point review of systems is negative except as per HPI. ALLERGIES: NO KNOWN DRUG ALLERGIES. MEDICATIONS: Reviewed by nurse's reconciliation sheet. SOCIAL HISTORY: No illicit drugs, smoking, or EtOH abuse. LABORATORY DATA: Reviewed. PHYSICAL EXAMINATION: GENERAL: The patient is lethargic, in no acute distress. VITAL SIGNS: Reviewed. HEENT: Atraumatic, normocephalic. PERRLA. Extraocular muscles are intact. NECK: Supple. No JVD. No adenopathy. LUNGS: Clear to auscultation. No adventitious sounds. HEART: S1 and S2. Normal rate and rhythm. No murmurs, rubs, or gallops. ABDOMEN: Soft, nontender, nondistended. Bowel sounds present. EXTREMITIES: No clubbing, no cyanosis. Peripheral pulses 2+ felt bilaterally. NEUROLOGIC: The patient is lethargic. No acute distress. Has Broca's type aphasia from left intracranial hemorrhage. Cranial nerves II through XII intact with a mild right facial droop. Motor exam: Mild right sided weakness when compared to the left. Toes are downgoing bilaterally. Sensory: Light touch is intact bilaterally. Withdraws to localized noxious stimulus. DTRs are 2+ throughout. Coordination and gait deferred for now. ASSESSMENT AND PLAN: Acute 3 cm hematoma left frontal lobe hemorrhage secondary to underlying uncontrolled hypertension. Adjacent subarachnoid hemorrhage. CTA angiogram of the head showed no evidence of any aneurysm. She has a pituitary adenoma. She had new-onset seizure secondary to acute left frontal intracranial hemorrhage and her Broca's type aphasia is secondary to left frontal intracranial hemorrhage as well. RECOMMENDATIONS: At this time we recommend: 1. Keppra 750 mg IV every 12 hours for seizure prophylaxis. 2. Keep her systolic blood pressure 120-130 and diastolic 70-80. 3. Will avoid any antiplatelet medications for the next three weeks in the onset of bleed. 4. PT/OT and speech therapy, and acute rehab. Jasen France MD Objective - Vital Signs/Intake and Output Vital Signs (last 24 hours): Temp Pulse Resp BP Pulse Ox 97.9 F 70 14 162/76 H 93 L 01/16/19 12:00 01/16/19 15:11 01/16/19 15:11 01/16/19 14:36 01/16/19 13:20 Intake and Output: 01/16/19 01/16/19 06:59 18:59 Intake Total 840 Output Total 450 Balance 390 - Medications Medications: Current Medications Artificial Tears (Artificial Tears) 0 ml OU TID [facility] Last Admin: 01/16/19 14:02 Dose: 1 drop Atorvastatin Calcium (Lipitor) 20 mg PO DIN BO Last Admin: 01/15/19 18:08 Dose: 20 mg Hydralazine HCl (Apresoline) 10 mg IVP Q4 PRN PRN Reason: Hypertension Last Admin: 01/12/19 07:30 Dose: 10 mg Levetiracetam 750 mg/ Sodium (Chloride) 107.5 mls @ 215 mls/hr IVPB Q12 BO Last Admin: 01/16/19 09:10 Dose: 215 mls/hr Sodium Chloride (Sodium Chloride 0.45%) 1,000 mls @ 40 mls/hr IV .Q24H [facility] Last Admin: 01/16/19 09:16 Dose: 40 mls/hr Cefepime HCl (Maxipime 1gm) 1 gm in 100 mls @ 100 mls/hr IVPB Q24H [facility]; Protocol Stop: 01/21/19 13:46 Last Admin: 01/16/19 14:02 Dose: 100 mls/hr Nitroglycerin (Nitro-Dur 0.4 Mg/Hr Patch) 1 patch TD DAILY BO Last Admin: 01/16/19 12:21 Dose: 1 patch - Labs Labs: 01/16/19 06:48 01/16/19 06:48 PT 13.6 SECONDS (9.4-12.5) H 01/13/19 05:30 INR 1.20 01/13/19 05:30 APTT 33.5 Seconds (26.9-38.3) 01/10/19 19:58
--- NOTE | 2019-01-16 16:01 | MRI ---
Date of service: 01/16/2019 PROCEDURE: MRI BRAIN WITHOUT CONTRAST HISTORY: CVA COMPARISON: 03/08/2017 TECHNIQUE: Multiplanar, multisequence MR images of the brain were obtained without intravenous contrast enhancement. FINDINGS: HEMORRHAGE: There is a large acute hemorrhage in the left posterior frontal lobe measuring 29 mm in diameter. There is a moderate amount of surrounding vasogenic edema. There is some effacement of sulci but no midline shift. There is no intraventricular extension of hemorrhage. DWI: No evidence of an acute or early subacute infarction. BRAIN PARENCHYMA: No mass effect or edema. No atrophy or chronic microvascular ischemic changes. VENTRICLES: Unremarkable. No hydrocephalus. CRANIUM: Unremarkable. ORBITS: Grossly unremarkable. PARANASAL SINUSES/MASTOIDS: Clear VASCULAR SYSTEM: Skull base flow voids intact. OTHER FINDINGS: There is a pituitary mass measuring 26 mm in height and 19 mm diameter. No change from prior study IMPRESSION: There is a large acute hemorrhage in the left posterior frontal lobe measuring 29 mm in diameter. There is a moderate amount of surrounding vasogenic edema. There is some effacement of sulci but no midline shift. There is no intraventricular extension of hemorrhage.
--- NOTE | 2019-01-16 17:15 | PN ---
DATE: 01/16/2019 SUBJECTIVE: The patient is comfortable in bed without dyspnea without shortness of breath. PHYSICAL EXAMINATION: GENERAL: The patient is awake, but unable to communicate. VITAL SIGNS: Blood pressure is 157/77, heart rate in the 60s. NECK: Negative JVD. LUNGS: Decreased breath sounds. HEART: S1, S2. EXTREMITIES: Without edema. LABORATORY DATA: Hemoglobin is 10.7. Chemistries; BUN and creatinine is 33 and 1.0. IMPRESSION: 1. Status post cerebrovascular accident. 2. Pituitary mass. 3. Intracerebral bleed. 4. Hypertension which is stable. 5. History of seizures. Given these findings, the patient is hemodynamically stable. Her pressure is reasonably controlled. Lyndon Robledo MD
--- NOTE | 2019-01-16 19:29 | CP.PCM.PN ---
Subjective - Date & Time of Evaluation Date of Evaluation: 01/16/19 Time of Evaluation: 06:50 - Subjective Subjective: A little more awake, no fevers. Objective - Vital Signs/Intake and Output Vital Signs (last 24 hours): Temp Pulse Resp BP Pulse Ox 98.7 F 74 24 142/63 97 01/15/19 16:00 01/15/19 19:20 01/15/19 19:20 01/15/19 19:00 01/15/19 19:20 Intake and Output: 01/15/19 01/16/19 18:59 06:59 Intake Total 670 Output Total 301 Balance 369 - Medications Medications: Current Medications Artificial Tears (Artificial Tears) 0 ml OU TID BO Last Admin: 01/15/19 18:51 Dose: 1 drop Atorvastatin Calcium (Lipitor) 20 mg PO DIN BO Last Admin: 01/15/19 18:08 Dose: 20 mg Hydralazine HCl (Apresoline) 10 mg IVP Q4 PRN PRN Reason: Hypertension Last Admin: 01/12/19 07:30 Dose: 10 mg Levetiracetam 750 mg/ Sodium (Chloride) 107.5 mls @ 215 mls/hr IVPB Q12 BO Last Admin: 01/15/19 21:51 Dose: 215 mls/hr Sodium Chloride (Sodium Chloride 0.45%) 1,000 mls @ 40 mls/hr IV .Q24H BO Last Admin: 01/15/19 09:30 Dose: 40 mls/hr Cefepime HCl (Maxipime 1gm) 1 gm in 100 mls @ 100 mls/hr IVPB Q24H [facility]; Protocol Stop: 01/21/19 13:46 Last Admin: 01/15/19 13:31 Dose: 100 mls/hr Nitroglycerin (Nitro-Dur 0.4 Mg/Hr Patch) 1 patch TD DAILY BO Last Admin: 01/15/19 09:28 Dose: 1 patch - Labs Labs: 01/15/19 05:40 01/15/19 05:40 PT 13.6 SECONDS (9.4-12.5) H 01/13/19 05:30 INR 1.20 01/13/19 05:30 APTT 33.5 Seconds (26.9-38.3) 01/10/19 19:58 - Constitutional Appears: Chronically Ill - Head Exam Head Exam: NORMAL INSPECTION - Respiratory Exam Respiratory Exam: Decreased Breath Sounds - Cardiovascular Exam Cardiovascular Exam: +S1, +S2 - GI/Abdominal Exam GI & Abdominal Exam: Soft. absent: Tenderness Assessment and Plan - Assessment and Plan (Free Text) Plan: Assessment Sepsis with left lower lobe HCAP acute intra-parenchymal hemorrhage CAD HTN UTI pituitary adenoma dyslipidemia Plan on Cefepime day 3 of 4-7 days cultures, nasal MRSA screen are negative follow up further recommendations of Neurology will monitor clinically
[2019-01-16] MEDS: BROMOCRIPTINE 2.5 MG NG SCH (22:35)
--- NOTE | 2019-01-17 03:41 | PN ---
DATE: 01/16/2019 ENDOCRINOLOGY FOLLOWUP NOTE LOCATION: In CCU 129, room 5. SUBJECTIVE: This is an 88-year-old female with a recent left intracranial frontal hemorrhage and is being followed closely for clinical dynamic monitoring and management in ICU and is also being followed closely for endocrine evaluation of an incidental finding of pituitary mass lesion as noted. Her prolactin levels were slightly elevated at 35 units/mL, most likely related to stalk compression in the hypothalamic pituitary area as noted. LABORATORY DATA: Her latest chemistry showed a BUN of 3, sodium 141, potassium 3.9, chloride 112, CO2 of 23, glucose 115, and creatinine 1. Her glucoses are fluctuating but improved ranging from 110 to 205 mg/dL. Her latest TSH is 0.65 with a T4 of 8.3 and a cortisol level of 18.4. PLAN OF MANAGEMENT: So, at this time, we will recommend if available in our hospital formulary a small dose of bromocriptine given as 2.5 mg at bedtime daily as ordered. We will obtain serial chemistries and supplement accordingly as needed. We will follow. June Heck MD
[2019-01-17 06:39] LABS: HEMOGLOBIN 10.6 g/dL (12.0-16.0); MEAN CORPUSCULAR HEMOGLOBIN 26.5 pg (25.0-35.0); MEAN CORPUSCULAR HGB CONC 30.5 g/dl (31.0-37.0); MEAN PLATELET VOLUME 11.1 fl (7.0-11.0); WHITE BLOOD COUNT 10.7 10^3/uL (4.5-11.0)
[2019-01-17 06:54] LABS: ALB/GLOB RATIO 0.8 (1.1-1.8); ALBUMIN 2.8 g/dL (3.0-4.8); ALT/SGPT 22 U/L (7-56); AST/SGOT 44 U/L (14-36); BLOOD UREA NITROGEN 31 mg/dL (7-21); CALCIUM 8.5 mg/dL (8.4-10.5); GFR NON-AFRICAN AMERICAN 59
--- NOTE | 2019-01-17 10:03 | CP.PCM.PN ---
Subjective - Date & Time of Evaluation Date of Evaluation: 01/17/19 Time of Evaluation: 09:55 - Subjective Subjective: PGY-[address] Heck, Wan Pt is more awake and alert, daughters by bedside. no acute complaint. Objective - Vital Signs/Intake and Output Vital Signs (last 24 hours): Temp Pulse Resp BP Pulse Ox 97.5 F L 68 17 140/70 97 01/17/19 05:55 01/17/19 05:55 01/17/19 05:55 01/17/19 05:55 01/16/19 17:54 Intake and Output: 01/17/19 01/17/19 06:59 18:59 Intake Total 480 Output Total 300 Balance 180 - Medications Medications: Current Medications Artificial Tears (Artificial Tears) 0 ml OU TID [facility] Last Admin: 01/16/19 17:05 Dose: 1 drop Atorvastatin Calcium (Lipitor) 20 mg PO DIN [facility] Last Admin: 01/16/19 16:25 Dose: 20 mg Home Med (Home Med) 1 unit NG HS [facility] Last Admin: 01/16/19 22:35 Dose: 1 unit Hydralazine HCl (Apresoline) 10 mg IVP Q4 PRN PRN Reason: Hypertension Last Admin: 01/12/19 07:30 Dose: 10 mg Levetiracetam 750 mg/ Sodium (Chloride) 107.5 mls @ 215 mls/hr IVPB Q12 BO Last Admin: 01/16/19 22:34 Dose: 215 mls/hr Sodium Chloride (Sodium Chloride 0.45%) 1,000 mls @ 40 mls/hr IV .Q24H [facility] Last Admin: 01/16/19 09:16 Dose: 40 mls/hr Cefepime HCl (Maxipime 1gm) 1 gm in 100 mls @ 100 mls/hr IVPB Q24H [facility]; Protocol Stop: 01/21/19 13:46 Last Admin: 01/16/19 14:02 Dose: 100 mls/hr Nitroglycerin (Nitro-Dur 0.4 Mg/Hr Patch) 1 patch TD DAILY [facility] Last Admin: 01/16/19 12:21 Dose: 1 patch - Labs Labs: 01/17/19 06:15 01/17/19 06:15 PT 13.6 SECONDS (9.4-12.5) H 01/13/19 05:30 INR 1.20 04/12/19 05:30 APTT 33.5 Seconds (26.9-38.3) 01/10/19 19:58 - Constitutional Appears: No Acute Distress - Head Exam Head Exam: ATRAUMATIC, NORMAL INSPECTION, NORMOCEPHALIC - Eye Exam Eye Exam: EOMI, Normal appearance, PERRL. absent: Scleral icterus Pupil Exam: NORMAL ACCOMODATION - ENT Exam ENT Exam: Mucous Membranes Moist - Neck Exam Additional comments: supple - Respiratory Exam Respiratory Exam: Clear to Ausculation Bilateral. absent: Rales, Rhonchi, Wheezes - Cardiovascular Exam Cardiovascular Exam: REGULAR RHYTHM, +S1, +S2 - GI/Abdominal Exam GI & Abdominal Exam: Soft. absent: Tenderness - Extremities Exam Extremities Exam: absent: Calf Tenderness - Back Exam Back Exam: absent: CVA tenderness (L), CVA tenderness (R) - Neurological Exam Neurological Exam: Alert, Awake Neuro motor strength exam: Left Upper Extremity: 3, Right Upper Extremity: 2/1, Left Lower Extremity: 3, Right Lower Extremity: 3 - Psychiatric Exam Psychiatric exam: Normal Affect, Normal Mood - Skin Skin Exam: Dry, Warm Assessment and Plan - Assessment and Plan (Free Text) Plan: Ms Mckeon, 88F with CAD, HTN/HLD, c/o expressive aphasia, found to have intracranial hemorrahage 3x3cm acute hemorrhage @ L frontal lobe. At the same time, pt has a concomitant pituitary adenoma of 29mm. Pt is prediabetic A1C 6.4 - Serum cortisol, ACTH, TSH, total T4 - normal. Pending IGF, estrogen. - prolactin - slight elevated, likely stalk compression, started Bromocriptin 2.5 daily, serial prolactin. Family interested in conservative medical management and not interested in surgery. - On seizure prophylaxis per neural; other medical management per primary - Maintain euglycemic. - Pt on tube feed and will decide on feeding method pending clinical course s/r/d/w Dr Heck
[2019-01-17] MEDS: Nitroglycerin 0.4 mg/hr Top Patch TD SCH (10:27)
[2019-01-17] MEDS: Aritificial Tears (15ml) OU SCH ×3 (10:28→18:48)
--- NOTE | 2019-01-17 12:21 | PN ---
DATE: 01/17/2019 SUBJECTIVE: She had this cerebral bleed, also she is not responding that well, as far as swallowing she has NG-tube in place. The family does not want at this time a PEG tube, but we can send her home with a feeding tube, so we are going to have to try an LTAC to see if we could finish that there. She is on Apresoline, artificial tears, levetiracetam, Lipitor, Maxipime, Nitro-Dur and IV fluids. PHYSICAL EXAMINATION: VITAL SIGNS: She has a 97.5 temperature, 68 pulse, 140/70 blood pressure, 17 respiratory rate. HEENT: Head is atraumatic, normocephalic. She is more alert today, smiling, moving her arm, but not swallowing well. The NG-tube is in place. HEART: Regular rate. LUNGS: Decreased breath sounds. ABDOMEN: Soft. EXTREMITIES: No edema. Moves the left arm well, the right arm is not moving well. The both legs are moving well. LABORATORY DATA: She has 10.7 white count, came back nicely, hemoglobin 10.6, hematocrit 34.8, platelets 184. INR is 1.2. Sodium is 142; potassium 4.2; BUN 31; creatinine 0.9; GFR is 69, better; sugar is 106; calcium is 8.5; total bili is 0.3; AST is 44; ALT is 22; alkaline phosphate 79; total protein 6.5; albumin is 2.8. TSH is 0.14 low. She is not on any Synthroid. ASSESSMENT: She is being seen by Endocrinology, Infectious Disease, Neurology and Cardiology. She had an MRI of the brain yesterday it showed large acute hemorrhage in the left posterior frontal lobe, it is now 29 mm in diameter, also surrounding vasogenic edema. PLAN: So my plan is to get it to a LTAC, where they continue with NG tube. Encourage with swallowing and continue medications as per needed and physical therapy before she can go home. cerebral bleed. Richard Byers DO [facility]PITALAdelaide
[2019-01-17 12:30] LABS: PROLACTIN 15.9 ng/mL (3.0-18.9)
[2019-01-17] MEDS: Cefepime 1gm in NS 100ml 1 GM/100 ML BAG IVPB SCH (13:59)
--- NOTE | 2019-01-17 18:31 | PN ---
DATE: 01/17/2019 CARDIOLOGY PROGRESS NOTE SUBJECTIVE: The patient's neurologic status remains unchanged. PHYSICAL EXAMINATION: VITAL SIGNS: Blood pressure 128/74 and heart rate is in the 70s. Telemetry reveals normal sinus rhythm with APC's. NECK: Negative JVD. LUNGS: Decreased breath sounds. HEART: S1 and S2. EXTREMITIES: Without change. LABORATORY DATA: Hemoglobin is 10.6. Chemistries; BUN and creatinine are unremarkable. Glucose is 112. IMPRESSION: 1. Cerebrovascular accident. 2. Intracerebral bleed. 3. Hypertension which is stable. 4. History of seizures. PLAN: Given these findings, the patient's hemodynamic status is unchanged. Awaiting for transfer to [facility]. Lyndon Robledo MD
[2019-01-17] MEDS: BROMOCRIPTINE 2.5 MG NG SCH (22:19)
--- NOTE | 2019-01-18 04:06 | PN ---
DATE: 01/17/2019 ENDOCRINOLOGY FOLLOWUP NOTE LOCATION: Room 267. SUBJECTIVE: This is an 88-year-old female with sudden expressive aphasia and evaluated for left frontal intracranial hemorrhage and is now being followed closely for hemodynamic monitoring and management. Moreover, she also had an incidental finding of a partially calcified pituitary adenoma as noted thereof. LABORATORY DATA: Her latest chemistry showed a BUN 31, sodium 142, potassium 4.2, chloride 111, CO2 of 25, and glucose 106, and creatinine 0.9. Her prolactin level is 35.1 as noted which is related to a soft compression stalk in the hypothalamic pituitary axis noted. PLAN OF MANAGEMENT: The patient's family has opted for further management at this time as noted. We would also recommend a low-dose bromocriptine given at 2.5 mg at bedtime as ordered. We will concur with the evaluation and suggestions of Neurology as noted. We will follow and advised accordingly. June Heck MD
[2019-01-18] MEDS: Sodium Chloride 0.45% 1,000 ML IV SCH (08:50)
--- NOTE | 2019-01-18 09:17 | CP.PCM.PN ---
Subjective - Date & Time of Evaluation Date of Evaluation: 01/18/19 Time of Evaluation: 09:14 - Subjective Subjective: PGY-[address] Heck, Endo Pt's daughters by bedside. No acute event overnight. Objective - Vital Signs/Intake and Output Vital Signs (last 24 hours): Temp Pulse Resp BP Pulse Ox 98.1 F 72 20 135/73 97 01/18/19 05:45 01/18/19 05:45 01/18/19 05:45 01/18/19 05:45 01/16/19 17:54 Intake and Output: 01/18/19 01/18/19 06:59 18:59 Intake Total 840 Output Total 300 Balance 540 - Medications Medications: Current Medications Artificial Tears (Artificial Tears) 0 ml OU TID [facility] Last Admin: 01/17/19 18:48 Dose: 1 drop Atorvastatin Calcium (Lipitor) 20 mg PO DIN BO Last Admin: 01/17/19 18:48 Dose: 20 mg Home Med (Home Med) 1 unit NG HS BO Last Admin: 01/17/19 22:19 Dose: 1 unit Hydralazine HCl (Apresoline) 10 mg IVP Q4 PRN PRN Reason: Hypertension Last Admin: 01/12/19 07:30 Dose: 10 mg Levetiracetam 750 mg/ Sodium (Chloride) 107.5 mls @ 215 mls/hr IVPB Q12 BO Last Admin: 01/17/19 22:19 Dose: 215 mls/hr Sodium Chloride (Sodium Chloride 0.45%) 1,000 mls @ 40 mls/hr IV .Q24H [facility] Last Admin: 01/18/19 08:50 Dose: Not Given Cefepime HCl (Maxipime 1gm) 1 gm in 100 mls @ 100 mls/hr IVPB Q24H [facility]; Protocol Stop: 01/21/19 13:46 Last Admin: 01/17/19 13:59 Dose: 100 mls/hr Nitroglycerin (Nitro-Dur 0.4 Mg/Hr Patch) 1 patch TD DAILY [facility] Last Admin: 01/17/19 10:27 Dose: 1 patch - Labs Labs: 01/17/19 06:15 01/17/19 06:15 PT 13.6 SECONDS (9.4-12.5) H 01/13/19 05:30 INR 1.20 01/13/19 05:30 APTT 33.5 Seconds (26.9-38.3) 01/10/19 19:58 - Constitutional Appears: No Acute Distress - Head Exam Head Exam: ATRAUMATIC, NORMAL INSPECTION, NORMOCEPHALIC - Eye Exam Eye Exam: EOMI, Normal appearance, PERRL. absent: Scleral icterus Pupil Exam: NORMAL ACCOMODATION - ENT Exam ENT Exam: Mucous Membranes Moist - Neck Exam Additional comments: supple - Respiratory Exam Respiratory Exam: Clear to Ausculation Bilateral. absent: Rales, Rhonchi, Wheezes - Cardiovascular Exam Cardiovascular Exam: REGULAR RHYTHM, +S1, +S2 - GI/Abdominal Exam GI & Abdominal Exam: Soft, Normal Bowel Sounds. absent: Tenderness - Neurological Exam Neurological Exam: Alert, Awake Neuro motor strength exam: Left Upper Extremity: 4, Right Upper Extremity: 2/1, Left Lower Extremity: 3, Right Lower Extremity: 3 Additional comments: Able to follow simple command - Psychiatric Exam Psychiatric exam: Normal Affect, Normal Mood - Skin Skin Exam: Dry, Warm Assessment and Plan - Assessment and Plan (Free Text) Plan: Ms Mckeon, 88F with CAD, HTN/HLD, c/o expressive aphasia, found to have intracranial hemorrahage 3x3cm acute hemorrhage @ L frontal lobe. At the same time, pt has a concomitant pituitary adenoma of 29mm. Pt is prediabetic A1C 6.4 - Serum cortisol, ACTH, TSH, total T4 - normal. Pending IGF, estrogen. - prolactin - slight elevated, likely stalk compression, started Bromocriptin 2.5 daily, serial prolactin. Family interested in conservative medical management and not interested in surgery. - On seizure prophylaxis per neural; other medical management per primary - Maintain euglycemic. - Pt on tube feed and will decide on feeding method pending clinical course. Speech therapist following s/r/d/w Dr Heck
--- NOTE | 2019-01-18 09:39 | CP.PCM.PN ---
Subjective - Date & Time of Evaluation Date of Evaluation: 01/18/19 Time of Evaluation: 09:37 - Subjective Subjective: pt seen and examined at bedside, pt remains aphasic, in NAD Objective - Vital Signs/Intake and Output Vital Signs (last 24 hours): Temp Pulse Resp BP Pulse Ox 98.1 F 72 20 135/73 97 01/18/19 05:45 01/18/19 05:45 01/18/19 05:45 01/18/19 05:45 01/16/19 17:54 Intake and Output: 01/18/19 01/18/19 06:59 18:59 Intake Total 840 Output Total 300 Balance 540 - Medications Medications: Current Medications Artificial Tears (Artificial Tears) 0 ml OU TID [facility] Last Admin: 01/17/19 18:48 Dose: 1 drop Atorvastatin Calcium (Lipitor) 20 mg PO DIN [facility] Last Admin: 01/17/19 18:48 Dose: 20 mg Home Med (Home Med) 1 unit NG HS [facility] Last Admin: 01/17/19 22:19 Dose: 1 unit Hydralazine HCl (Apresoline) 10 mg IVP Q4 PRN PRN Reason: Hypertension Last Admin: 01/12/19 07:30 Dose: 10 mg Levetiracetam 750 mg/ Sodium (Chloride) 107.5 mls @ 215 mls/hr IVPB Q12 BO Last Admin: 01/17/19 22:19 Dose: 215 mls/hr Sodium Chloride (Sodium Chloride 0.45%) 1,000 mls @ 40 mls/hr IV .Q24H [facility] Last Admin: 01/18/19 08:50 Dose: Not Given Cefepime HCl (Maxipime 1gm) 1 gm in 100 mls @ 100 mls/hr IVPB Q24H [facility]; Protocol Stop: 01/21/19 13:46 Last Admin: 01/17/19 13:59 Dose: 100 mls/hr Nitroglycerin (Nitro-Dur 0.4 Mg/Hr Patch) 1 patch TD DAILY [facility] Last Admin: 01/17/19 10:27 Dose: 1 patch - Labs Labs: 01/17/19 06:15 01/17/19 06:15 PT 13.6 SECONDS (9.4-12.5) H 01/13/19 05:30 INR 1.20 01/13/19 05:30 APTT 33.5 Seconds (26.9-38.3) 01/10/19 19:58 - Constitutional Appears: Non-toxic, No Acute Distress - Head Exam Head Exam: ATRAUMATIC, NORMAL INSPECTION - Eye Exam Pupil Exam: NORMAL ACCOMODATION - ENT Exam ENT Exam: Normal Exam Additional comments: nasal feeding tube in place - Neck Exam Neck Exam: Full ROM - Respiratory Exam Respiratory Exam: Decreased Breath Sounds, NORMAL BREATHING PATTERN - Cardiovascular Exam Cardiovascular Exam: +S1, +S2 - GI/Abdominal Exam GI & Abdominal Exam: Soft, Normal Bowel Sounds - Extremities Exam Extremities Exam: Normal Capillary Refill - Back Exam Back Exam: NORMAL INSPECTION - Neurological Exam Neurological Exam: Alert, Awake - Skin Skin Exam: Dry, Intact Assessment and Plan - Assessment and Plan (Free Text) Plan: ITS Impressions Chest X-Ray 01/10/19 19:21 IMPRESSION: No active disease. No significant interval change compared to the prior examination(s). Head CT 01/10/19 19:21 IMPRESSION: There is an acute hemorrhage in the left frontal lobe measuring 3 cm in diameter. There is a mild amount of surrounding vasogenic edema. There effacement of the sulci. There is no midline shift. Head CT 01/11/19 07:00 IMPRESSION: Acute left frontal parenchymal hemorrhage. Findings unchanged compared to the prior study approximately 11 hr ago. Concordant results (preliminary interpretation) provided by [employer]. Procedure Completed: 06:59. Preliminary Report: Interpreted and electronically signed: 07:22. Final Interpretation: 08:37. Head/Neck CTA 01/11/19 10:16 IMPRESSION: 1. No evidence of endoluminal thrombus,occlusion or definite significant stenosis in the intracranial arteries. 2. No evidence of hemodynamically significant stenosis in the internal carotid arteries. 3. Patent bilateral vertebral arteries. 4. Enlarged multinodular thyroid gland. A dedicated thyroid ultrasound is recommended when the patient is clinically stable for complete evaluation of the thyroid gland. Head CT 01/11/19 23:42 IMPRESSION: There is an acute 3 cm hematoma in the left frontal lobe. There is minimal surrounding edema. A small amount of adjacent subarachnoid blood is also seen. The findings are unchanged Chest X-Ray 01/14/19 12:08 IMPRESSION: Poor inspiration with low lung volumes common crowded bronchovascular markings and bibasilar atelectasis left greater than right. Developing left lower lobe infiltrate with small effusion could be excluded with radiographs. Chest X-Ray 01/15/19 12:34 IMPRESSION: No active disease. Brain MRI 01/16/19 09:59 IMPRESSION: There is a large acute hemorrhage in the left posterior frontal lobe measuring 29 mm in diameter. There is a moderate amount of surrounding vasogenic edema. There is some effacement of sulci but no midline shift. There is no intraventricular extension of hemorrhage. 84 yr old female admit with a large acute hemorrhage in the left posterior frontal lobe measuring 29 mm in diameter as well as pit. adenoma now with continued mgmt neuro, endocrine , cardiology and ID The patient remains aphasic but awake and alert NG tube feeds family deciding about PEG placement Per PMD patient was referred to LTACH as dispo [facility] to assess pt today per discussion with yoni
--- NOTE | 2019-01-18 10:16 | PN ---
DATE: 01/18/2019 SUBJECTIVE: I saw her resting comfortably in bed. She is smiling at me and her tongue is quite dry. Also the left arm is moving well and here with her two daughters. She also have the NG tube in place for feeding. She cannot swallow yet from speech, I am trying to get her to an LTAC to help them, so that we could slowly wean her off the NG tube as the brain cerebral bleed improves. OBJECTIVE: VITAL SIGNS: Temperature 98.1, 72 pulse, 135/70 blood pressure, 20 respiratory rate, 97% O2 sat on room air. HEENT: Head is atraumatic, normocephalic. Tongue is actually midline, but dry. HEART: Regular rate. LUNGS: Decreased breath sounds. ABDOMEN: Soft. EXTREMITIES: No edema. Right-sided weakness. MEDICATIONS: She is on Apresoline, artificial tears, Keppra, Lipitor, Maxipime, Nitro-Dur, and IV fluids. LABORATORY DATA: Her blood she has a 142 sodium; potassium 4.2; BUN 31; creatinine 0.9, improving; GFR is 59, sugar is 106; calcium is 8.5 and total bili is 0.3. AST is 44, ALT is 22, alk phos 79, total protein 6.5. Prolactin was 15.9. INR is 1.2. Hematology; the white count finally down to 10.7, it was as high as 16; 10.6 hemoglobin; 34.8 hematocrit with a 184 platelets that is improved. She is being seen by Endocrinology, Infectious Disease, Cardiology. She had a few things going on cerebral bleed accident, hypertension, seizures, a little bit of sepsis with a left lower lobe pneumonia also pituitary adenoma. I am hoping we could get her to a LTAC where she can recover. Richard Byers DO
[2019-01-18] MEDS: Aritificial Tears (15ml) OU SCH ×3 (11:12→17:11)
[2019-01-18] MEDS: Nitroglycerin 0.4 mg/hr Top Patch TD SCH (11:12)
[2019-01-18] MEDS: Saliva Substitute 44.3 ML PO PRN ×2 (12:16→15:15)
--- NOTE | 2019-01-18 13:04 | PN ---
DATE: 01/18/2019 CARDIOLOGY FOLLOWUP SUBJECTIVE: The patient is without distress. PHYSICAL EXAMINATION VITAL SIGNS: Blood pressure 135/73 and heart rates in the 70s. NECK: Negative JVD. LUNGS: Without rales. HEART: Reveals S1 and S2. EXTREMITIES: Without change. LABORATORY JOHN: Hemoglobin is 10.6. Glucose is 110. IMPRESSION: 1. Intracerebral bleed. 2. Cerebrovascular accident. 3. Hypertension which is stable. 4. History of seizures. PLAN: Given these findings on the patient is hemodynamically stable . The patient is scheduled for an LTAC transfer. Lyndon Robledo MD
[2019-01-18] MEDS: Cefepime 1gm in NS 100ml 1 GM/100 ML BAG IVPB SCH (15:15)
[2019-01-18] MEDS: BROMOCRIPTINE 2.5 MG NG SCH (21:22)
--- NOTE | 2019-01-19 00:08 | PN ---
DATE: 01/18/2019 ENDOCRINOLOGY FOLLOWUP NOTE LOCATION: Room 267. SUBJECTIVE: This is an 88-year-old female with recent evaluation for a left frontal intracranial hemorrhage and is now being followed closely for metabolic management. She also had an incidental finding of pituitary adenoma with slight elevation of prolactin levels as noted. LABORATORY DATA: Her latest chemistry showed a BUN of 31, sodium 142, potassium 4.2, chloride 111, CO2 of 25, glucose 106, and creatinine 0.9. Her repeat prolactin level is down to 15.9 with a cortisol of 17.1. Her glucose levels have ranged from 110 to 112 and 104 mg/dL. Her serum TSH is 0.14 which is expected from the so-called acute sick euthyroid syndrome. 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 She also has a left frontal intracranial hemorrhage as noted. PLAN OF MANAGEMENT: We will continue the low-dose bromocriptine given as 2.5 mg once daily at bedtime as ordered. We will obtain serial chemistries and supplement accordingly as needed. We will also obtain serial prolactin values accordingly. We will concur with the family's decision to have only conservative management at this time for the patient. She is currently on tube feedings for nutritional supplementation as noted. We will obtain serial chemistries accordingly. June Heck MD
[2019-01-19] MEDS: Saliva Substitute 44.3 ML PO PRN (00:27)
[2019-01-19 07:12] LABS: ALB/GLOB RATIO 0.8 (1.1-1.8); ALBUMIN 2.6 g/dL (3.0-4.8); ALT/SGPT 23 U/L (7-56); AST/SGOT 40 U/L (14-36); BLOOD UREA NITROGEN 23 mg/dL (7-21); CALCIUM 8.2 mg/dL (8.4-10.5); GFR NON-AFRICAN AMERICAN > 60
[2019-01-19 07:19] LABS: HEMOGLOBIN 10.1 g/dL (12.0-16.0); MEAN CELL VOLUME 87.1 fl (80.0-105.0); MEAN CORPUSCULAR HEMOGLOBIN 26.5 pg (25.0-35.0); MEAN CORPUSCULAR HGB CONC 30.4 g/dl (31.0-37.0); RBC 3.81 10^6/uL (3.5-6.1); RED CELL DISTRIBUTION WIDTH 14.9 % (11.5-14.5); WHITE BLOOD COUNT 9.2 10^3/uL (4.5-11.0)
--- NOTE | 2019-01-19 09:37 | CP.PCM.PCO ---
Physician Communication Note - Physician Communication Note Physician Communication Note: pt tolerated diet per RN, will cont to follow
[2019-01-19] MEDS: Nitroglycerin 0.4 mg/hr Top Patch TD SCH (09:58)
[2019-01-19] MEDS: Aritificial Tears (15ml) OU SCH ×3 (09:59→18:35)
[2019-01-19] MEDS: Sodium Chloride 0.45% 1,000 ML IV SCH (10:44)
--- NOTE | 2019-01-19 11:39 | CP.PCM.PCO ---
Physician Communication Note - Physician Communication Note Physician Communication Note: c/w pt/ot/speech, awaiting LTACH placment.
[2019-01-19 12:27] LABS: PROLACTIN 1.7 ng/mL (3.0-18.9)
--- NOTE | 2019-01-19 13:01 | PN ---
DATE: 01/19/2019 CARDIOLOGY FOLLOWUP SUBJECTIVE: The patient's neurologic situation is unchanged. PHYSICAL EXAMINATION: VITAL SIGNS: Blood pressure is 137/73 and heart rate in a 70s. NECK: Negative JVD. LUNGS: Without rales. HEART: Reveals S1 and S2. EXTREMITIES: Without edema. LABORATORY DATA: Hemoglobin is 10.1. Chemistries; BUN and creatinine are unremarkable. IMPRESSION: 1. Status post intracranial bleed. 2. History of cerebrovascular accident. 3. Hypertension which is stable. 4. Recent seizures. PLAN: Given these findings, the patient is hemodynamically stable. Discontinue telemetry today. We are waiting for transfer to [facility]. Lyndon Robledo MD
--- NOTE | 2019-01-19 13:51 | PN ---
DATE: 01/19/2019 SUBJECTIVE: She is actually doing better today. They started her on some diet, pureed with honey thickened and she is doing well with that, which is great. If she does it to a point where she gets enough nutrition with a calorie count, we could take out the NG tube and if that is the case, we will get her to [facility] and not the LTAC. MEDICATIONS: She is on Apresoline, artificial tears, Keppra IV, Lipitor, Maxipime IV, Nitro-Dur, saliva substitute and IV fluids. OBJECTIVE: VITAL SIGNS: She has a 99.2 temperature, 69 pulse, 137/70 blood pressure, 18 respiratory rate, 98% O2 sat on room air. HEENT: Head is atraumatic, normocephalic. She is smiling. She is moving the arm okay. HEART: Regular rate. LUNGS: Decreased breath sounds. ABDOMEN: Soft. EXTREMITIES: No edema. I did get her out of bed to chair that is to get some physical therapy more involved. LABORATORY DATA: She has a 9.2 white count, 10.1 hemoglobin, 33.2 hematocrit with 163 platelets. 138 sodium, potassium 4.3, BUN 23, creatinine 0.7, GFR greater than 60, sugar is 101, calcium is 8.2, total bili is 0.2. AST is 40, ALT is 23, alk phos 71, total protein is 6. TSH is 0.24, little bit low and she is currently on nothing for thyroid, it could be stress related, I will repeat it tomorrow. ASSESSMENT AND PLAN: She is being seen by Endocrinology, Cardiology, Infectious Disease. I am hoping to go to a [facility] now that she is starting to eat better, may be [facility]. Continue aggressive treatment and care, give more physical therapy, out of bed to chair and encourage to eat. Continue with IV antibiotics. She had a bad cerebral bleed. Richard Byers DO
--- NOTE | 2019-01-19 15:05 | PN ---
DATE: 01/19/2019 LOCATION: Room 267. SUBJECTIVE: This is an 88-year-old female with recent admission for expressive aphasia and evaluated to have a left frontal intracranial hemorrhage and is now being followed closely for metabolic management. She also had an incidental finding of a pituitary adenoma as confirmed on both the CAT scan and MRI of the brain as noted. She also had mild hyperprolactinemia and was started on bromocriptine therapy as given. Her latest chemistry showed a BUN of 23, sodium 138, potassium 4.3, chloride 107, CO2 of 26, glucose 91, and creatinine 0.7. Her glucose levels have ranged from 101 to 119 mg/dL. The repeat prolactin level is down to 15.9 as noted. So, for now, we will continue the bromocriptine given as 2.5 mg once daily at bedtime as ordered. We will obtain serial chemistries and supplement accordingly as needed. We will also obtain serial prolactin levels accordingly. The patient now has been advanced to a pureed diet which she has tolerated fairly well today as noted. We will obtain serial chemistries and supplement accordingly as needed. We will follow. June Heck MD
[2019-01-19] MEDS: BROMOCRIPTINE 2.5 MG NG SCH (22:32)
[2019-01-20 07:44] LABS: HEMOGLOBIN 10.2 g/dL (12.0-16.0); MEAN CORPUSCULAR HEMOGLOBIN 26.5 pg (25.0-35.0); MEAN CORPUSCULAR HGB CONC 30.8 g/dl (31.0-37.0); MEAN PLATELET VOLUME 10.6 fl (7.0-11.0); RBC 3.85 10^6/uL (3.5-6.1); RED CELL DISTRIBUTION WIDTH 14.8 % (11.5-14.5); WHITE BLOOD COUNT 10.5 10^3/uL (4.5-11.0)
[2019-01-20 08:00] LABS: ALB/GLOB RATIO 0.8 (1.1-1.8); ALBUMIN 2.6 g/dL (3.0-4.8); ALT/SGPT 23 U/L (7-56); AST/SGOT 41 U/L (14-36); BLOOD UREA NITROGEN 21 mg/dL (7-21); CALCIUM 8.2 mg/dL (8.4-10.5); GFR NON-AFRICAN AMERICAN > 60
--- NOTE | 2019-01-20 08:08 | CP.PCM.PN ---
Subjective - Date & Time of Evaluation Date of Evaluation: 01/20/19 Time of Evaluation: 08:07 - Subjective Subjective: PGY-[address] Umang Blas Pt tolerated puree but refuse to eat much because of taste Objective - Vital Signs/Intake and Output Vital Signs (last 24 hours): Temp Pulse Resp BP Pulse Ox 99.2 F 69 18 137/73 98 01/19/19 06:00 01/19/19 06:00 01/19/19 06:00 01/19/19 06:00 01/19/19 06:00 Intake and Output: 01/20/19 01/20/19 06:59 18:59 Intake Total 120 Output Total 1400 Balance -1280 - Medications Medications: Current Medications Artificial Tears (Artificial Tears) 0 ml OU TID [facility] Last Admin: 01/19/19 18:35 Dose: 1 drop Atorvastatin Calcium (Lipitor) 20 mg PO DIN [facility] Last Admin: 01/19/19 17:22 Dose: 20 mg Home Med (Home Med) 1 unit NG HS [facility] Last Admin: 01/19/19 22:32 Dose: 1 unit Hydralazine HCl (Apresoline) 10 mg IVP Q4 PRN PRN Reason: Hypertension Last Admin: 01/12/19 07:30 Dose: 10 mg Levetiracetam 750 mg/ Sodium (Chloride) 107.5 mls @ 215 mls/hr IVPB Q12 BO Last Admin: 01/19/19 22:32 Dose: 215 mls/hr Sodium Chloride (Sodium Chloride 0.45%) 1,000 mls @ 40 mls/hr IV .Q24H [facility] Last Admin: 01/19/19 10:44 Dose: Not Given Nitroglycerin (Nitro-Dur 0.4 Mg/Hr Patch) 1 patch TD DAILY [facility] Last Admin: 01/19/19 09:58 Dose: 1 patch Saliva Substitute (Saliva Substitute) 0 ml PO Q2 PRN PRN Reason: Dry mouth Last Admin: 01/19/19 00:27 Dose: 1 ml - Labs Labs: 01/20/19 07:00 01/20/19 07:00 PT 13.6 SECONDS (9.4-12.5) H 01/13/19 05:30 INR 1.20 01/13/19 05:30 APTT 33.5 Seconds (26.9-38.3) 01/10/19 19:58 - Constitutional Appears: No Acute Distress - Head Exam Head Exam: ATRAUMATIC, NORMAL INSPECTION, NORMOCEPHALIC - Eye Exam Eye Exam: EOMI, Normal appearance, PERRL. absent: Scleral icterus Pupil Exam: NORMAL ACCOMODATION - ENT Exam ENT Exam: Mucous Membranes Moist - Neck Exam Additional comments: supple - Respiratory Exam Respiratory Exam: Clear to Ausculation Bilateral. absent: Rales, Rhonchi, Wheezes - Cardiovascular Exam Cardiovascular Exam: REGULAR RHYTHM, +S1, +S2 - GI/Abdominal Exam GI & Abdominal Exam: Soft, Normal Bowel Sounds. absent: Tenderness - Neurological Exam Neurological Exam: Alert, Awake Neuro motor strength exam: Left Upper Extremity: 3, Right Upper Extremity: 3, Left Lower Extremity: 3, Right Lower Extremity: 3 - Psychiatric Exam Psychiatric exam: Normal Affect, Normal Mood - Skin Skin Exam: Dry, Warm Assessment and Plan - Assessment and Plan (Free Text) Plan: Ms Mckeon, 88F with CAD, HTN/HLD, c/o expressive aphasia, found to have intracranial hemorrahage 3x3cm acute hemorrhage @ L frontal lobe. At the same time, pt has a concomitant pituitary adenoma of 29mm. Pt is prediabetic A1C 6.4 - Serum cortisol, ACTH, TSH, total T4 - normal. Pending IGF, estrogen. - prolactin - slight elevated, likely stalk compression, after starting Bromocriptin 2.5 daily, serial prolactin show low at 1.7. Will change the regiment to Q2D Family interested in conservative medical management and not interested in s urgery. - On seizure prophylaxis per neural; other medical management per primary - Maintain euglycemic. - Pt tolerated puree diet with thickener s/r/d/w Dr Heck
--- NOTE | 2019-01-20 09:43 | CP.PCM.PCO ---
Physician Communication Note - Physician Communication Note Physician Communication Note: pt on diet/ still w/NG tube, monitoring po intake , plan Lenora soto
[2019-01-20] MEDS: Sodium Chloride 0.45% 1,000 ML IV SCH ×2 (10:01→10:05)
--- NOTE | 2019-01-20 10:11 | PN ---
DATE: 01/20/2019 SUBJECTIVE: I saw her resting comfortably in bed. She is alert. She is being fed by one of her daughters She is actually taking the pureed with thickener and liquid with thickener very well. No coughing at all. She swallowed it very nicely. The right side is still weak from the cerebral bleed, stroke picture. She is on IV fluids, hydralazine, artificial tears levetiracetam which is a Keppra IV, Lipitor, nitroglycerin patch and saliva substitute. PHYSICAL EXAMINATION: VITAL SIGNS: She has 97.9 temperature, 65 pulse, 139/75 blood pressure, 17 respiratory rate, 98% O2 sat on room air. HEAD: Atraumatic, normocephalic. HEART: Regular rate. LUNGS: Decreased breath sounds. ABDOMEN: Soft. EXTREMITIES: No edema. Right-sided weakness. She is alert. She is swallowing better. She has the NG tube in place. I am hoping to get that out when she has enough calories on board. LABORATORY DATA: White count is 10.5, hemoglobin 10.2, hematocrit 33.1, platelets of 168. Sodium 138, potassium 4.5, BUN 21, creatinine 0.7, GFR greater than 60, sugar is 100, calcium is 8.2, total bili is 0.3. AST is 41, ALT is 23, alk phos 72, total protein 6.1. TSH is 0.62. Cortisol sample is 12.2. PLAN: She is being seen by Neuro, Cardiology, Endocrinology, Infectious Disease. I think now that she is starting to eat, we will get her from LTAC and move her to [facility] at the [facility], something like that. I am hoping we will get the NG tube out soon. She is status post intracranial bleed, history of cerebrovascular accident. She has right-sided weakness, hypertension, seizures. Continue aggressive treatment and care. It is very possible we can get her to [facility], not an LTAC. Richard Byers DO
[2019-01-20] MEDS: Nitroglycerin 0.4 mg/hr Top Patch TD SCH (10:13)
[2019-01-20] MEDS: Aritificial Tears (15ml) OU SCH ×2 (10:13→15:33)
--- NOTE | 2019-01-20 15:57 | PN ---
DATE: 01/20/2019 CARDIOLOGY FOLLOWUP SUBJECTIVE: The patient is without distress. PHYSICAL EXAMINATION: VITAL SIGNS: Blood pressure was 139/75, heart rates in the 60s. NECK: Negative JVD. LUNGS: Without rales. HEART: S1 and S2. EXTREMITIES: Without edema. LABORATORY DATA: Hemoglobin is 10.2. Chemistries, BUN and creatinine are unremarkable. IMPRESSION: 1. Status post intracerebral bleed. 2. Hypertension which is well controlled. 3. Cerebrovascular accident. 4. Seizures which is stable. Given these findings, the patient is hemodynamically stable. Awaiting transfer to an LTAC. Lyndon Robledo MD
[2019-01-20 16:42] VITALS: BP 107/68; PULSE 81; RESP 18; TEMP 98.5; O2SAT 94
[2019-01-21] MEDS ORDERED: BROMOCRIPTINE 2.5 MG NG SCH (22:00)
--- NOTE | 2019-01-23 10:08 | PN ---
DATE: 01/20/2019 ENDO FOLLOWUP NOTE LOCATION: Room 575. SUBJECTIVE: This is an 88-year-old female with recent left frontal intracranial hemorrhage on conservative management at this time and has also been followed closely for metabolic management of recent hyperprolactinemia as noted thereof. She had remarkable response to the initiation of bromocriptine therapy as given and her latest prolactin level is down to 1.7 and her cortisol is 12.2, TSH of 0.62. Her chemistry, BUN of 21, sodium 138, potassium 4.5, chloride 106, CO2 of 27, glucose of 100 and creatinine of 0.7. 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 PLAN OF MANAGEMENT: We will modify her bromocriptine medication 2.5 mg every other night as ordered daily. We will obtain serial chemistries and supplement accordingly as needed. We will follow. June Heck MD
== END 2019-01-20 20:05 | DRG 64 ==
LOC: ED 18:43 → ERH 20:56 → CCU 23:33 → 2RNO 01-16 17:34 → 5RSO 01-19 12:39
PROVIDERS: ADMIT Family Medicine; ATTEND Family Medicine
DX: I61.1 Nontraumatic intracerebral hemorrhage in hemisphere, cortical (principal); G93.6 Cerebral edema; A41.9 Sepsis, unspecified organism; J18.1 Lobar pneumonia, unspecified organism; R47.01 Aphasia; J98.11 Atelectasis; E22.1 Hyperprolactinemia; I25.118 Atherosclerotic heart disease of native coronary artery with other forms of angina pectoris; I10 Essential (primary) hypertension; D35.2 Benign neoplasm of pituitary gland; E04.2 Nontoxic multinodular goiter; R56.9 Unspecified convulsions; R47.02 Dysphasia; E78.00 Pure hypercholesterolemia, unspecified; I73.9 Peripheral vascular disease, unspecified; E78.5 Hyperlipidemia, unspecified; Y95 Nosocomial condition; Z87.891 Personal history of nicotine dependence; Z95.5 Presence of coronary angioplasty implant and graft